=== PATIENT | female | born 1965 | race Caucasian/White ===

== ENCOUNTER → 2019-05-05 09:41 | Outpatient (BNVA) | payer MEDICAID, SELFPAY | PROVIDERS: Family Provider Registered Nurse; PCP Registered Nurse; Visit Provider Registered Nurse | DX: E11.59 Type 2 diabetes mellitus with other circulatory complications (principal); Z79.4 Long term (current) use of insulin; E03.9 Hypothyroidism, unspecified | CPT/HCPCS: 83036; 84443 ==

== ENCOUNTER → 2019-06-17 14:00 | Outpatient (BNVA) | payer MEDICAID, SELFPAY | PROVIDERS: Family Provider Registered Nurse; PCP Registered Nurse; Visit Provider Obstetrics & Gynecology | DX: Z12.4 Encounter for screening for malignant neoplasm of cervix (principal); B96.89 Other specified bacterial agents as the cause of diseases classified elsewhere; N76.0 Acute vaginitis | CPT/HCPCS: 87210 ==

== ENCOUNTER 2019-06-20 23:24 | Emergency (ER) | payer MEDICAID, SELFPAY ==
[2019-06-20 23:30] VITALS: BMI 40.0
[2019-06-20 23:32] VITALS: BP 111/63; PULSE 112; RESP 18; TEMP 37.4; O2SAT 96
--- NOTE | 2019-06-20 23:33 | ED_ITS ---
HPI - Epistaxis General: Chief complaint: General Medical Stated complaint: nosebleed x 3 hours Time Seen by Provider: 06/20/19 23:32 Source: patient Mode of arrival: ambulatory Limitations: no limitations History of Present Illness: HPI Narrative: Patient is a 54-year-old female who presents to ED today with complaints of bleeding from her left nare that began 3 hours ago. Bleeding has stopped upon arrival. Patient states this is her third nosebleed in the last few months. She states she takes aspirin and Plavix daily. Denies any other symptoms at this time MD complaint: epistaxis Location: left nostril Onset (ago): hour(s) Duration: now resolved Context: history of previous and aspirin use Associated symptoms: Reports no associated symptoms; Deny fever(s), headache(s) or sinus pain Review of Systems Const: Denies: fever, chills or body aches ENMT: Reports: nose bleeds; Denies: throat pain, enlarged tonsils, painful swallowing, oral sores/lesions, nasal discharge, nasal congestion, nasal obstruction or facial/sinus pain Card: Denies: chest pain Resp: Denies: shortness of breath GI: Reports: nausea (reports recently started flagyl for BV) Skin/Breast: Denies: rash Neuro: Denies: headache, numbness in extremities, weakness in extremities, changes in sensation, lack of coordination, dizziness or vertigo [facility] ED PFSH: Medical History (Updated 06/21/19 @ 00:07 by WILMA Hernandez) Coronary artery disease Diabetes Hyperlipidemia Hypothyroid Social History Smoking and tobacco status: never smoked Quit status (tobacco): has quit using tobacco Year quit tobacco: age 14 Alcohol intake: never History of recent travel: No Physical Exam Const: COMMON NORMALS: no apparent distress, average body habitus, oriented x3, no limitations, healthy appearing, alert and well nourished HENMT: COMMON NORMALS: normocephalic, head/scalp atraumatic, external nose normal, moist oral mucous membranes and oropharynx normal HEAD & SCALP: normocephalic and atraumatic NOSE: external nose normal THROAT: posterior oropharynx normal, tonsils normal and uvula midline OTHER: pt has polyp/growth inside L nare; this seems to be where bleeding is coming from; bleeding had subsided upon arrival to ED but with examination of nare/growth bleeding did begin again; it was slowed with Afrin; I think any use of cauterization will increase bleeding at this time and I don't feel pt would tolerate packing in her nare with the polyp present; bleeding controlled with na morales clamp Neuro: COMMON NORMALS: oriented x3 SENSORIUM/ORIENTATION: Yes alert Course Vital Signs: Vital signs: Vital Signs Temperature 99.3 F 06/20/19 23:32 Pulse Rate 112 H 06/21/19 00:14 Respiratory Rate 18 06/21/19 00:14 Blood Pressure 117/58 06/21/19 00:14 Pulse Oximetry 96 06/21/19 00:14 MDM - Epistaxis MDM Narrative: Medical decision making narrative: will have CM set her up to see Dr. Mata hopefully tomorrow or Thursday; return to ED precautions given regarding worsening or uncontrollable bleeding Discharge Plan Discharge Patient Disposition: Home, Self-Care Clinical Impression: Acute anterior epistaxis, Left nasal polyps Condition: Stable Prescriptions: No Action clopidogrel [Plavix] 75 mg tablet 75 mg PO DAILY RF: 0 metronidazole 500 mg tablet 500 mg PO BID Qty: 10 RF: 0 aspirin 325 mg tablet 325 mg PO DAILY RF: 0 Levemir FlexTouch U-100 Insuln 100 unit/mL (3 mL) insulin pen 15 unit SUBCUT DAILY RF: 0 hydroxyzine HCl 25 mg tablet 25 mg PO BID PRNRF: 0 Januvia 100 mg tablet 100 mg PO ONCE RF: 0 levothyroxine 112 mcg capsule 112 mcg PO ONCE RF: 0 lisinopril 2.5 mg tablet 2.5 mg PO ONCE RF: 0 metoprolol succinate 25 mg tablet extended release 24 hr 25 mg PO BID RF: 0 pantoprazole 40 mg tablet,delayed release (DR/EC) 40 mg PO ONCE RF: 0 simvastatin 40 mg tablet 40 mg PO ONCE RF: 0 (DME) pen needle, diabetic [Easy Comfort Pen [place]] 31 gauge x 1/4 needle See Rx Instructions .ROUTE .MEDSUPPLY Qty: 90 RF: 1 celecoxib [Celebrex] 100 mg capsule 100 mg PO DAILY Qty: 30 RF: 2 montelukast [Singulair] 10 mg tablet 10 mg PO ONCE Qty: 30 RF: 3 citalopram 10 mg tablet 10 mg PO ONCE Qty: 30 RF: 2 doxepin 75 mg capsule 75 mg PO DAILY Qty: 60 RF: 0 metformin 1,000 mg tablet extended release 24hr 1,000 mg PO BID Qty: 60 RF: 0 Victoza 2-Silas 0.6 mg/0.1 mL (18 mg/3 mL) pen injector 1.8 mg SUBCUT Q24H Qty: 6 RF: 0 Levemir FlexTouch U-100 Insuln 100 unit/mL (3 mL) insulin pen 50 unit SUBCUT ONCE Qty: 15 RF: 0 Discharge Orders: Discharge Order (Routine); Ordered 06/20/19 Ordered By: Samantha Hirsch Referrals: Artur Mata MD [Physician] - Adonis Mcgee FNP [Primary Care Provider] - Activity Restrictions/Additional Instructions: Case management should contact you tomorrow for ENT follow up. If nose bleed begins hold firm pressure for 15-20 mins using nasal clamp. May also use the Afrin nose spray. Return to ED if you cannot get bleeding controlled/stopped. Discharge Date/Time: 06/21/19 00:15 Coding Level of Care Code ED Polishing Wheel Repairer for Chg Fwd Exam Expanded Problem Focused
--- NOTE | 2019-06-20 23:38 | PC.NURSE ---
LACERATION TRAY USED FOR INSTRUMENTS BY Capri DILLON
[2019-06-20] MEDS: oxymetazoline 0.05% Nasal Spray 15 mL 2 SPRAY NOSTRIL-L (23:58)
[2019-06-21 00:14] VITALS: BP 117/58; PULSE 112; RESP 18; O2SAT 96
--- NOTE | 2019-06-23 13:33 | DCPLANNER ---
late entry - correctional case records supervisor had message to schedule a follow up appointment for patient with ENT. performance manager called patient to confirm that patient would like for correctional case records supervisor to schedule a follow up appointment. performance manager was unable to speak with patient at this time, a voice mail was left for patient to return rn field case manager phone call.
== END 2019-06-21 00:15 | disposition home or self-care (01) ==
PROVIDERS: Emergency Provider Physician Assistant; Family Provider Registered Nurse; PCP Registered Nurse
DX: J33.9 Nasal polyp, unspecified (principal); R04.0 Epistaxis; E11.9 Type 2 diabetes mellitus without complications; I25.10 Atherosclerotic heart disease of native coronary artery without angina pectoris; E78.5 Hyperlipidemia, unspecified; E03.9 Hypothyroidism, unspecified; Z79.82 Long term (current) use of aspirin; Z79.02 Long term (current) use of antithrombotics/antiplatelets; Z87.891 Personal history of nicotine dependence; Z79.84 Long term (current) use of oral hypoglycemic drugs
CPT/HCPCS: 99281; 99283

== ENCOUNTER → 2019-06-30 14:28 | Outpatient (BNVA) | payer MEDICAID, SELFPAY | PROVIDERS: Family Provider Registered Nurse; PCP Registered Nurse; Visit Provider Otolaryngology | DX: R04.0 Epistaxis (principal); J34.2 Deviated nasal septum | CPT/HCPCS: 99203; 99214 ==

== ENCOUNTER → 2019-08-26 08:54 | Outpatient (BNVA) | payer MEDICAID, SELFPAY | PROVIDERS: Family Provider Registered Nurse; PCP Registered Nurse; Visit Provider Registered Nurse | DX: E11.65 Type 2 diabetes mellitus with hyperglycemia (principal); E03.9 Hypothyroidism, unspecified; Z79.4 Long term (current) use of insulin | CPT/HCPCS: 80053; 83036; 84443 ==

== ENCOUNTER 2019-09-12 08:33 | Outpatient (CLI) | payer MEDICAID, SELFPAY ==
--- NOTE | 2019-09-12 09:00 | CT_ITS ---
WS: [id number] CT HEAD TECHNIQUE: Noncontrast CT of the head obtained from the skullbase to the vertex. CLINICAL INFORMATION: dizziness COMPARISON: None. DLP: 992.[address] scans at [facility] use at least one of these dose optimization techniques: automat ed exposure control; mA and/or kV adjustment per patient size (includes targeted exams where dose is matched to clinical indication); or iterative reconstruction. FINDINGS: No evidence of intracranial hemorrhage or mass effect. Ventricular system and basal cisterns are sears nt. Minimal small vessel changes with mild parenchymal volume loss. No extra-axial fluid collections. No evidence of mass or mass effect. Normal ceballos-white differentiation. Paranasal sinuses and mastoid air cells are well aerated. .Normal visualized soft tissues. CT/CT head wo con* [id number] IMPRESSION: 1. No evidence of intracranial hemorrhage or mass effect. 2. Minimal small vessel changes. Mild parenchymal volume loss. 3. No acute intracranial findings.
== END 2019-09-12 08:34 | disposition home or self-care (01) ==
LOC: RADWPI 08:36
PROVIDERS: Family Provider Registered Nurse; PCP Registered Nurse; Visit Provider Registered Nurse
DX: R42 Dizziness and giddiness (principal)
CPT/HCPCS: 70450

== ENCOUNTER 2019-10-05 06:31 | Inpatient (IN) | payer MEDICAID, SELFPAY ==
[2019-10-05] VITALS (26 sets, daily range): BP systolic 99–125; BP diastolic 50–74; PULSE 84–109; RESP 16–22; TEMP 36.6–37.2; O2SAT 95–100; BMI 39.9
--- NOTE | 2019-10-05 07:07 | W.ED.FALL ---
HPI - Fall General: Chief Complaint: Fall Stated Complaint: FALL Time Seen by Provider: 10/05/19 06:42 History of Present Illness: HPI Narrative: 54-year-old male had a fall at home. She got up from bed went to the bathroom she fell and, landed on her buttocks in a seated position she not strike her head did not lose consciousness. She got lightheaded or dizzy prior to it when she stood up and started walking. She has no other known injuries. Looking back through her chart she has had a lot of epistaxis the last couple of months and is on clopidogrel because of her stenting and previous coronary artery disease. She denies any blood from GI losses. MD complaint: fall Onset (ago): minute(s) Fall from: standing Fall witnessed: yes, by family Place fall occurred: home Loss of consciousness: None Symptoms prior to fall: lightheadedness and dizziness Location of injury: back (lumbar) Severity: moderate Quality: aching Associated symptoms-after fall: Denies abdominal pain or chest pain Review of Systems Const: Denies: fever(s), chills, body aches, change in appetite, fatigue or malaise ENMT: Denies: throat pain, ear or mastoid pain, nasal discharge or nasal congestion Card: Denies: chest pain, edema, dyspnea on exertion or orthopnea Resp: Denies: dyspnea, productive cough or non-productive cough GI: Denies: abdominal pain, nausea, vomiting, hematemesis, coffee ground emesis, diarrhea, constipation, bloating, hematochezia or melena : Denies: flank pain, difficulty voiding, dysuria, urinary frequency or urinary urgency Skin/Breast: Denies: rash or pruritus PFSH ED PFSH: Medical History (Updated 10/05/19 @ 08:26 by Tim Aviles DO) Anxiety and depression Arthritis Coronary artery disease Had stent 03/2019 Deviated septum Diabetes Hyperlipidemia Hypothyroid Surgical History History of total left knee replacement History of total right knee replacement (~11/2017) History of tubal ligation Hx of heart artery stent (~03/2019) Family History Mother Diabetes Brother Diabetes Heart disease Hypercholesteremia Father Heart disease Sister Uterine cancer Social History (Updated 10/05/19 @ 10:24 by Carina Gillis DO) Smoking and tobacco status: never smoked Quit status (tobacco): has quit using tobacco Year quit tobacco: age 14 Alcohol intake: never Substance/Drug Use: never Marital status: History of recent travel: No Physical Exam Const: COMMON NORMALS: no acute distress GENERAL APPEARANCE: cooperative and comfortable ORIENTATION/CONSCIOUSNESS: Yes awake, Yes oriented to person, Yes oriented to place and Yes oriented to time HENMT: COMMON NORMALS: normocephalic, atraumatic, hearing grossly normal bilaterally, external ears normal, EAC's normal, TM's normal bilaterally, Normal nasal mucous membranes and turbinates present, moist oral mucous membranes and oropharynx normal HEAD & SCALP: normocephalic and atraumatic NOSE: Normal nasal mucous membranes and turbinates present EXTERNAL EAR: Yes external ears normal EXTERNAL AUDITORY CANAL: EAC's normal TYMPANIC MEMBRANE: TM's normal bilaterally Eye: COMMON NORMALS: Equal, round and reactive pupils present, EOMs intact bilaterally, conjunctivae normal and no scleral icterus CONJUNCTIVA: Yes conjunctivae normal PUPIL: Yes Equal, round and reactive pupils present Neck/C-Spine: COMMON NORMALS: full ROM, no lymphadenopathy, supple and no JVD Lymph: LYMPHATIC: no lymphadenopathy noted and no lymphedema noted Resp: COMMON NORMALS: normal respiratory effort, No retractions, No use of accessory muscles and clear to auscultation bilaterally AUSCULTATION: clear to auscultation bilaterally Cardio: COMMON NORMALS: no JVD, regular rate, regular rhythm and No murmurs present (Cardio) RATE: regular rate RHYTHM: regular rhythm GI: COMMON NORMALS: Soft to palpation and No hepatosplenomegaly present AUSCULTATION: Yes normoactive bowel sounds PALPATION: Yes Soft to palpation, No Tenderness to palpation present (GI), No Guarding due to palpation present (GI) and Yes No hepatosplenomegaly present Extremity: COMMON NORMALS: normal to inspection, capillary refill normal, no clubbing, cyanosis or edema, no calf tenderness and no pedal edema Neuro: SENSORIUM/ORIENTATION: Yes oriented to person, Yes oriented to place and Yes oriented to time Skin: COMMON NORMALS: no rashes or lesions noted GENERAL SKIN EXAM: no rashes or lesions noted Course Vital Signs: Vital signs: Vital Signs Temperature 98.3 F 10/05/19 15:53 Pulse Rate 84 10/05/19 15:53 Respiratory Rate 22 H 10/05/19 15:53 Blood Pressure 110/72 10/05/19 15:53 Pulse Oximetry 95 10/05/19 15:53 MDM - Fall MDM Narrative: Medical decision making narrative: Patient has syncopal episode largely in part due to her severe anemia probably exacerbated by her underlying diabetes and antihypertensives. Discussed with Dr. Gillis will go ahead and admit to units packed red blood cells been ordered to transfuse also given insulin for hyperglycemia. She will need further work-up for her anemia losses. She has had quite a bit of bloody noses lately her last hemoglobin was in February 2019 could not find that she had when checked in between this could be part of it she is also on Plavix and aspirin which exacerbated it further. Lab Data: Labs: Lab Results 10/05/19 10/05/19 10/05/19 Range/Units 07:10 07:10 07:10 WBC 8.4 (4.0-10.0) 10^3/ uL RBC 3.82 L (4.1-5.3) 10^6/u L Hgb 5.3 L* (11.5-15.3) g/dL Hct 22.5 L (37.0-47.0) % MCV 58.9 L (81-99) fL MCH 13.9 L (28.0-34.0) pg MCHC 23.6 L (30.0-36.0) g/dL RDW 22.2 H (12.1-15.1) % Plt Count 425 H (130-400) 10^3/c mm MPV 9.0 (7.4-10.4) fL Neut % (Auto) 75.4 % Lymph % (Auto) 14.1 % [place] % (Auto) 6.3 % Eos % (Auto) 2.1 % Baso % (Auto) 0.8 % Neut # (Auto) 6.4 (1.8-7.7) 10^3/u L Lymph # (Auto) 1.2 (0.8-4.8) 10^3/u L [place] # (Auto) 0.5 (0.2-0.9) 10^3/u L Eos # (Auto) 0.2 (0.0-0.8) 10^3/u L Baso # (Auto) 0.1 (0.0-0.1) 10^3/u L Nucleated RBC % (a uto) 0.7 % Nucleated RBCs # 0.1 /100WBC Haptoglobin 122.0 (30-200) mg/L PT (10.5-13.3) SECO NDS INR (0.8-1.2) Sodium 129 L (136-145) mmol/L Potassium 4.5 (3.5-5.1) mmol/L Chloride 93 L (98-107) mmol/L Carbon Dioxide 21 L (22-29) mmol/L Anion Gap 19.5 H (5-19) BUN 8 (6-20) mg/dL Creatinine 0.7 (0.5-0.9) mg/dL GFR Calculation 86.6 L (90-130) mL/min Glucose 554 H* (65-115) mg/dL Estimat Average Gl ucose Hemoglobin A1c (4.0-6.0) % Calculated Osmolal ity 289 (285-295) mOsm/k g Calcium 9.2 (8.5-10.5) mg/dL Iron 17 L (37-145) ug/dL TIBC 445 mcg/dl % Saturation 3.8 L (20-50) % Unsat Iron Binding 428 H (112-347) ug/dL Ferritin 7 L (15-150) ng/mL Total Bilirubin 0.5 (0.15-1.2) mg/dL AST 41 H (0-32) U/L ALT 24 (0-33) U/L Alkaline Phosphata se 109 H (35-105) IU/L Total Protein 7.7 (6.6-8.7) g/dL Albumin 4.1 (3.5-5.2) g/dL Globulin 3.6 (1.3-4.6) g/dL Vitamin B12 523 (232-1245) pg/mL Folate (4.8-37.3) ng/mL TSH (0.27-4.20) uIU/ mL Blood Type Rho(D) Type Antibody Screen Crossmatch 10/05/19 10/05/19 10/05/19 Range/Units 07:10 07:10 07:10 WBC (4.0-10.0) 10^3/ uL RBC (4.1-5.3) 10^6/u L Hgb (11.5-15.3) g/dL Hct (37.0-47.0) % MCV (81-99) fL MCH (28.0-34.0) pg MCHC (30.0-36.0) g/dL RDW (12.1-15.1) % Plt Count (130-400) 10^3/c mm MPV (7.4-10.4) fL Neut % (Auto) % Lymph % (Auto) % [place] % (Auto) % Eos % (Auto) % Baso % (Auto) % Neut # (Auto) (1.8-7.7) 10^3/u L Lymph # (Auto) (0.8-4.8) 10^3/u L [place] # (Auto) (0.2-0.9) 10^3/u L Eos # (Auto) (0.0-0.8) 10^3/u L Baso # (Auto) (0.0-0.1) 10^3/u L Nucleated RBC % (a uto) % Nucleated RBCs # /100WBC Haptoglobin (30-200) mg/L PT 13.80 H (10.5-13.3) SECO NDS INR 1.03 (0.8-1.2) Sodium (136-145) mmol/L Potassium (3.5-5.1) mmol/L Chloride (98-107) mmol/L Carbon Dioxide (22-29) mmol/L Anion Gap (5-19) BUN (6-20) mg/dL Creatinine (0.5-0.9) mg/dL GFR Calculation (90-130) mL/min Glucose (65-115) mg/dL Estimat Average Gl ucose 212 Hemoglobin A1c 9.0 H (4.0-6.0) % Calculated Osmolal ity (285-295) mOsm/k g Calcium (8.5-10.5) mg/dL Iron (37-145) ug/dL TIBC mcg/dl % Saturation (20-50) % Unsat Iron Binding (112-347) ug/dL Ferritin (15-150) ng/mL Total Bilirubin (0.15-1.2) mg/dL AST (0-32) U/L ALT (0-33) U/L Alkaline Phosphata se (35-105) IU/L Total Protein (6.6-8.7) g/dL Albumin (3.5-5.2) g/dL Globulin (1.3-4.6) g/dL Vitamin B12 (232-1245) pg/mL Folate 15.2 (4.8-37.3) ng/mL TSH (0.27-4.20) uIU/ mL Blood Type Rho(D) Type Antibody Screen Crossmatch 10/05/19 10/05/19 Range/Units 07:10 07:49 WBC (4.0-10.0) 10^3/ uL RBC (4.1-5.3) 10^6/u L Hgb (11.5-15.3) g/dL Hct (37.0-47.0) % MCV (81-99) fL MCH (28.0-34.0) pg MCHC (30.0-36.0) g/dL RDW (12.1-15.1) % Plt Count (130-400) 10^3/c mm MPV (7.4-10.4) fL Neut % (Auto) % Lymph % (Auto) % [place] % (Auto) % Eos % (Auto) % Baso % (Auto) % Neut # (Auto) (1.8-7.7) 10^3/u L Lymph # (Auto) (0.8-4.8) 10^3/u L [place] # (Auto) (0.2-0.9) 10^3/u L Eos # (Auto) (0.0-0.8) 10^3/u L Baso # (Auto) (0.0-0.1) 10^3/u L Nucleated RBC % (a uto) % Nucleated RBCs # /100WBC Haptoglobin (30-200) mg/L PT (10.5-13.3) SECO NDS INR (0.8-1.2) Sodium (136-145) mmol/L Potassium (3.5-5.1) mmol/L Chloride (98-107) mmol/L Carbon Dioxide (22-29) mmol/L Anion Gap (5-19) BUN (6-20) mg/dL Creatinine (0.5-0.9) mg/dL GFR Calculation (90-130) mL/min Glucose (65-115) mg/dL Estimat Average Gl ucose Hemoglobin A1c (4.0-6.0) % Calculated Osmolal ity (285-295) mOsm/k g Calcium (8.5-10.5) mg/dL Iron (37-145) ug/dL TIBC mcg/dl % Saturation (20-50) % Unsat Iron Binding (112-347) ug/dL Ferritin (15-150) ng/mL Total Bilirubin (0.15-1.2) mg/dL AST (0-32) U/L ALT (0-33) U/L Alkaline Phosphata se (35-105) IU/L Total Protein (6.6-8.7) g/dL Albumin (3.5-5.2) g/dL Globulin (1.3-4.6) g/dL Vitamin B12 (232-1245) pg/mL Folate (4.8-37.3) ng/mL TSH 10.28 H (0.27-4.20) uIU/ mL Blood Type A Positive Rho(D) Type Positive Antibody Screen Negative Crossmatch See Detail Discharge Plan Discharge Patient Disposition: Admitted As Inpatient Admit Provider: Carina Gillis Clinical Impression: Syncope, Diabetes, Hypothyroid, Coronary artery disease, Hyperlipidemia, Anemia Condition: Stable Referrals: Adonis Mcgee FNP [Primary Care Provider] - Discharge Date/Time: 10/05/19 09:54 Coding Level of Care Code ED Cereal Popper for Chg Fwd Exam Comprehensive
[2019-10-05 07:16] LABS: Basophils # 0.1 10^3/uL (0.0-0.1); Basophils % 0.8 %; Eosinophils # 0.2 10^3/uL (0.0-0.8); Eosinophils % 2.1 %; Hematocrit 22.5 % (37.0-47.0); Lymphocytes # 1.2 10^3/uL (0.8-4.8); Lymphocytes % 14.1 %; Mean Corpuscular HGB Conc 23.6 g/dL (30.0-36.0); Mean Corpuscular Hemoglobin 13.9 pg (28.0-34.0); Mean Corpuscular Volume 58.9 fL (81-99); Monocytes # 0.5 10^3/uL (0.2-0.9); Monocytes % 6.3 %; Neutrophils # 6.4 10^3/uL (1.8-7.7); Neutrophils % 75.4 %; Nucleated Red Blood Cells # 0.1 /100WBC; Nucleated Red Blood Cells % 0.7 %; Platelet Count 425 10^3/cmm (130-400); Red Blood Count 3.82 10^6/uL (4.1-5.3); Red Cell Distribution Width 22.2 % (12.1-15.1); White Blood Count 8.4 10^3/uL (4.0-10.0)
--- NOTE | 2019-10-05 07:17 | PC.NURSE ---
Patient ambulated in the room.
[2019-10-05] MEDS: sodium chloride 0.9% 500 ML 999 ML IV (07:24)
[2019-10-05 07:33] LABS: Hemoglobin 5.3 g/dL (11.5-15.3)
[2019-10-05 07:37] LABS: Alanine Aminotransferase 24 U/L (0-33); Albumin Level 4.1 g/dL (3.5-5.2); Alkaline Phosphatase 109 IU/L (35-105); Anion Gap 19.5 (5-19); Aspartate Amino Transferase 41 U/L (0-32); Blood Urea Nitrogen 8 mg/dL (6-20); Calcium 9.2 mg/dL (8.5-10.5); Carbon Dioxide 21 mmol/L (22-29); Chloride 93 mmol/L (98-107); Globulin 3.6 g/dL (1.3-4.6); Glomerular Filtration Rate 86.6 mL/min (90-130); Osmolality Calculated 289 mOsm/kg (285-295); Potassium 4.5 mmol/L (3.5-5.1); Sodium 129 mmol/L (136-145); Total Bilirubin 0.5 mg/dL (0.15-1.2); Total Protein 7.7 g/dL (6.6-8.7)
[2019-10-05 07:39] LABS: Glucose 554 mg/dL (65-115)
--- NOTE | 2019-10-05 07:40 | XR_ITS ---
WS: [id number] LUMBAR SPINE: 3 VIEWS TECHNIQUE: AP, lateral and L5-S1 spot. HISTORY: FALL COMPARISON: None available. Very mild LEFT convex curvature of the lumbar spine. Vertebral body height is normal. Endplate osteop hytes at all levels. No fractures identified. Facet joint arthritis is moderate to severe at L5-S1. Mild bilateral SI joint sclerosis. Mild bilateral hip joint arthritis. Scattered plaque within the aorta. XR/XR lumbar spine 2-3V* [id number] IMPRESSION: 1. Mild LEFT convex curvature lumbar spine with no fracture. 2. Mild bilateral SI joint and hip joint arthritis.
[2019-10-05] MEDS: insulin regular-human 100 units/1 mL 10 UNIT IVP (08:16)
[2019-10-05 08:21] LABS: Ferritin 7 ng/mL (15-150); Iron 17 ug/dL (37-145); Percent Saturation 3.8 % (20-50); Total Iron Binding Capacity 445 mcg/dl; Unsaturated Iron Binding 428 ug/dL (112-347)
[2019-10-05] MEDS: HYDROcodone-acetaminophen 10-325 mg Tablet 1 TAB PO (08:26)
[2019-10-05 08:35] LABS: Vitamin B12 523 pg/mL (232-1245)
[2019-10-05 08:39] LABS: Folate Level 15.2 ng/mL (4.8-37.3)
--- NOTE | 2019-10-05 09:07 | PC.NURSE ---
Blood verified with ANTHONY Marinelli at this time.
[2019-10-05 09:44] LABS: Glucose Point of Care 381 mg/dL (70-110)
--- NOTE | 2019-10-05 10:18 | PM.HP ---
Providers/Chief Complaint Admitting Physician: Carina Gillis DO Primary Care Provider: GULSHAN Pitts Chief Complaint: FALL History of Present Illness Tonie Fish is a 54 year old female that presented to the emergency department today after a lightheaded and syncopal episode. Patient stated that she has been feeling lightheaded intermittently for several months. She stated that she has had difficulty with balance. She reports having a fall this morning after standing up quickly. She reports that she fell onto her bottom and her hip, has some discomfort from bruising but able to bear weight. Patient denies any continued headache or vision changes. She reports that she has been having intermittent nosebleeds for the past several months. She has been followed by ENT. She stated that she has been having approximately 4-5 episodes of epistaxis per week. Sometimes it will be very light and sometimes it will last for a longer period of time. She stated that her longest nosebleed lasted approximately 5 hours, she was evaluated in the emergency department when this occurred. Patient has been following with her primary care provider for work-up of her lightheadedness, has not had any recent labs performed that are viewable in our system. She reports that she has not had any melanotic stools, no bright red blood per rectum. She reports that she has had screening fecal occult blood, however has never had a colonoscopy or EGD. She denies any family history of colon cancer. Patient reports that her last menstrual period was at the age of 50, has no irregular bleeding, reports that her last Pap smear was normal. Patient denies any other source of bleeding. She reports that she takes in a regular diet, she denies any history of gastric surgery, denies any vegetarian or vegan diet. Patient denies any exposure to anyone under investigation or positive for CO VID-19. Patient was seen and evaluated in the emergency department and noted to have anemia with a hemoglobin of 5.3 she was typed and screened for 2 units of packed red blood cells and admitted for further evaluation and treatment. Review of Systems Const: Denies: fever(s) or chills Eyes: Denies: change in vision ENMT: Denies: nasal congestion Card: Denies: chest pain, palpitations or edema Resp: Denies: dyspnea, productive cough or hemoptysis GI: Denies: abdominal pain, nausea, vomiting, diarrhea, constipation, hematochezia or melena : Denies: dysuria, hematuria, vaginal bleeding, irregular period or pelvic pain Musc: Denies: extremity pain or muscle cramps Skin/Breast: Denies: rash or new lesions Neuro: Reports: dizziness and vertigo; Denies: headache(s) Psych: Denies: anxiety or depression Endo: Denies: polyuria or hot flashes Caio/Lymph: Denies: easy bruising, easy bleeding, petechiae or purpura Medications/Allergies Home Medications Medication Instructions Recorded Confirmed Last Taken Type hydroxyzine HCl 25 mg tablet 25 mg PO BID PRN 05/05/19 10/05/19 Unknown History metoprolol succinate 25 mg 12.5 mg PO BID tab 05/05/19 10/05/19 10/04/19 History tablet,extended release 24 hr aspirin 325 mg tablet 325 mg PO DAILY 06/14/19 10/05/19 10/04/19 History insulin detemir U-100 100 unit/mL 53 unit SUBCUT DAILY #15 ml 07/05/19 10/05/19 10/04/19 Rx (3 mL) subcutaneous pen liraglutide 0.6 mg/0.1 mL (18 mg/3 1.8 mg SUBCUT Q24H #6 ml 07/05/19 10/05/19 10/04/19 Rx mL) subcutaneous pen injector nystatin 100,000 unit/gram topical 1 applic TOPICAL TID #60 gm 07/05/19 10/05/19 Unknown Rx powder clopidogrel 75 mg tablet 75 mg PO DAILY #90 tab 08/26/19 10/05/19 10/04/19 Rx doxepin 75 mg capsule See Rx Instructions .ROUTE 09/26/19 10/05/19 10/04/19 Rx .COMPLEX #60 cap citalopram 10 mg PO DAILY 10/05/19 10/05/19 10/04/19 History levothyroxine 112 mcg PO DAILY 10/05/19 10/05/19 10/04/19 History lisinopril 2.5 mg PO DAILY 10/05/19 10/05/19 10/04/19 History metformin 1,000 mg PO BID 10/05/19 10/05/19 10/04/19 History montelukast 10 mg PO DAILY 10/05/19 10/05/19 10/04/19 History pantoprazole 40 mg PO DAILY 10/05/19 10/05/19 10/04/19 History simvastatin 40 mg PO DAILY 10/05/19 10/05/19 10/04/19 History sitagliptin [Januvia] 100 mg PO DAILY 10/05/19 10/05/19 10/04/19 History Allergies Allergy/AdvReac Type Severity Reaction Status Date / Time No Known Allergies Allergy Verified 09/07/19 09:15 PFSH Acute PFSH: Medical History (Updated 10/05/19 @ 08:26 by Tim Aviles DO) Anxiety and depression Arthritis Coronary artery disease Had stent 03/2019 Deviated septum Diabetes Hyperlipidemia Hypothyroid Surgical History History of total left knee replacement History of total right knee replacement (~11/2017) History of tubal ligation Hx of heart artery stent (~03/2019) Family History Mother Diabetes Brother Diabetes Heart disease Hypercholesteremia Father Heart disease Sister Uterine cancer Social History (Updated 10/05/19 @ 10:24 by Carina Gillis DO) Smoking and tobacco status: never smoked Quit status (tobacco): has quit using tobacco Year quit tobacco: age 14 Alcohol intake: never Substance/Drug Use: never Marital status: History of recent travel: No Vitals/I&O/Wt Last Vital Signs Temp 98.7 F 10/05/19 10:00 Pulse 91 10/05/19 10:00 Resp 16 10/05/19 10:00 BP 116/63 10/05/19 10:00 Pulse Ox 97 10/05/19 10:00 10/04/19 10/05/19 10/05/19 22:59 06:59 14:59 Intake Total 500 / 500 Balance 500 / 500 Weight last 48 hrs Weight 98.883 kg Physical Exam Const: COMMON NORMALS: patient oriented x3 and alert GENERAL APPEARANCE: cooperative ORIENTATION/CONSCIOUSNESS: Yes awake, Yes oriented to person, Yes oriented to place and Yes oriented to time OTHER: General pallor HENMT: COMMON NORMALS: normocephalic and atraumatic HEAD & SCALP: normocephalic and atraumatic Eye: COMMON NORMALS: Equal, round and reactive pupils present PUPIL: Yes Equal, round and reactive pupils present Neck/C-Spine: COMMON NORMALS: supple GENERAL: Yes normal visual inspection Resp: COMMON NORMALS: normal respiratory effort and clear to auscultation bilaterally EFFORT & INSPECTION: Yes able to speak in complete sentences AUSCULTATION: clear to auscultation bilaterally, no rhonchi and no wheezes Cardio: COMMON NORMALS: regular rate, regular rhythm and No murmurs present (Cardio) RATE: regular rate RHYTHM: regular rhythm GI: COMMON NORMALS: Soft to palpation and non-tender INSPECTION: No abdominal distension AUSCULTATION: Yes normoactive bowel sounds PALPATION: Yes Soft to palpation : COMMON NORMALS: Yes no CVA tenderness BLADDER/KIDNEY EXAM: Yes no CVA tenderness Back/Pelvis: COMMON NORMALS: no CVA tenderness Extremity: COMMON NORMALS: no clubbing, cyanosis or edema and no calf tenderness Neuro: COMMON NORMALS: patient oriented x3, CN's II-XII intact bilaterally, moves all extremities and no focal motor deficits SENSORIUM/ORIENTATION: Yes alert, Yes oriented to person, Yes oriented to place and Yes oriented to time SPEECH: speech normal Psych: COMMON NORMALS: mental status grossly normal and cooperative Skin: COMMON NORMALS: no rashes or lesions noted GENERAL SKIN EXAM: no rashes or lesions noted Data : 10/05/19 07:10 10/05/19 07:10 A&P Assessment and plan (1) Syncope: Likely secondary to anemia Significant drop in hemoglobin to 5.3. Prior hemoglobin on 1120 oh 19 at 12.5. Continue further work-up for microcytic anemia Fall precautions Status: Acute (2) Anemia: Microcytic anemia which appears to be new from February 2019 Believed to be multifactorial, patient reports recurrent nosebleeds with approximately 4 to 5/week, no active bleeding at this time. Patient is on aspirin and Plavix due to stent placement in March 2019. Will discuss with her oxygraph operator about the potential of moving to single antiplatelet regimen. Patient also has iron deficiency, will start on iron replacement. We will continue to work-up microcytic anemia with peripheral smear and other hematologic testing, likely secondary to iron deficiency and blood loss from recurrent nose bleeds Status: Acute (3) Hyperlipidemia: Continue home statin Status: Acute (4) Coronary artery disease: With stent placement in March 2019. Patient is followed by Dr. Celis. Continue on aspirin but will decrease dose to 81 mg, Plavix, simvastatin, metoprolol, lisinopril Will discuss with oxygraph operator if patient can be reduced to Plavix due to anemia and recurrent nosebleeds Status: Acute (5) Hypothyroid: We will check TSH, at this time we will continue home levothyroxine of 112 mcg daily Status: Chronic (6) Diabetes: Poorly controlled diabetes mellitus, insulin-dependent. Patient is hyperglycemic at time of presentation in the ED, did not have medications this morning. Will restart Levemir at 30 units twice a day and continue with sliding scale insulin as needed. Patient is also on Victoza and metformin at home Checking A1c Status: Chronic Additional A&P Information Epistaxis: Patient has recurrent intermittent epistaxis, previously followed by ENT and has a follow-up appointment in the coming weeks. We will continue with nasal saline spray as needed to moisten mucous membranes, no active bleeding at this time. Patient would likely benefit from cauterization in the future Iron deficiency anemia: Would recommend outpatient EGD and colonoscopy, this was discussed with patient. She denies any melanotic stools, no concern for GI bleed at this time but would recommend further follow-up in the outpatient setting Pseudohyponatremia: Secondary to hyperglycemia DVT prophylaxis: SCDs, no pharmacologic prophylaxis due to concern for anemia Diet: Carbohydrate consistent CODE STATUS: Full code Attestations Medical Necessity Statement*: Patient requires inpatient admission due to significant anemia with a hemoglobin of 5.3 along with hyperglycemia greater than 500 in the setting of recent stent placement on dual antiplatelet therapy. Expected stay greater than 2 midnights Coding Level of Care Code Acute Certified Travel Counselor for Chg Fwd Exam Comprehensive Diagnoses Syncope R55 Anemia D64.9 Hyperlipidemia E78.5 Coronary artery disease I25.10 Hypothyroid E03.9 Diabetes E11.9
[2019-10-05 10:38] LABS: INR 1.03 (0.8-1.2)
[2019-10-05 10:46] LABS: Estmated Average Glucose 212
[2019-10-05 10:50] LABS: Thyroid Stimulating Hormone 10.28 uIU/mL (0.27-4.20)
[2019-10-05] MEDS: sitagliptin 100 mg Tablet PO (11:01)
[2019-10-05] MEDS: clopidogrel 75 mg Tablet PO (11:01)
[2019-10-05] MEDS: ferrous sulfate EC 325 mg Tablet PO ×2 (11:01→17:33)
[2019-10-05] MEDS: pantoprazole DR 40 mg Tablet PO (11:02)
[2019-10-05 11:17] LABS: LAB Peripheral Smear Sent for Review
[2019-10-05 11:37] LABS: Glucose Point of Care 329 mg/dL (70-110)
[2019-10-05] MEDS: sodium chloride 0.9% (100 ml) 100 ML 45 ML (12:49)
[2019-10-05] MEDS: atorvastatin 40 mg Tablet 20 MG PO (12:54)
[2019-10-05 16:35] LABS: Glucose Point of Care 244 mg/dL (70-110)
[2019-10-05] MEDS: ascorbic acid 500 mg Tablet PO (17:33)
[2019-10-05 18:05] LABS: Hematocrit 26.4 % (37.0-47.0)
[2019-10-05 18:16] LABS: Free T4 Free Thyroxine 0.74 ng/dL (0.82-1.77); T3 Free 2.1 PG/ML (2.0-4.4)
[2019-10-05] MEDS: doxepin 50 mg Capsule 150 MG PO (20:07)
[2019-10-05] MEDS: nystatin powder 15 gm Btl 1 APPLIC TOPICAL (20:08)
[2019-10-05 21:06] LABS: Glucose Point of Care 234 mg/dL (70-110)
--- NOTE | 2019-10-05 21:22 | PC.NURSE ---
during report i witnessed Patty CRUZ (dayshift) call Dr. Gillis and report the new HH value of 7.0. Dr Gillis then ordered to give 1 more unit of blood. I will carry out this order on my shift.
[2019-10-06 01:35] VITALS: BP 107/69; PULSE 98; RESP 16; TEMP 37; O2SAT 95
[2019-10-06 03:46] LABS: Basophils # 0.1 10^3/uL (0.0-0.1); Basophils % 1.1 %; Eosinophils # 0.3 10^3/uL (0.0-0.8); Hematocrit 29.7 % (37.0-47.0); Hemoglobin 8.2 g/dL (11.5-15.3); Lymphocytes # 1.7 10^3/uL (0.8-4.8); Lymphocytes % 18.4 %; Mean Corpuscular HGB Conc 27.6 g/dL (30.0-36.0); Mean Corpuscular Hemoglobin 17.9 pg (28.0-34.0); Mean Corpuscular Volume 64.8 fL (81-99); Mean Platelet Volume 9.2 fL (7.4-10.4); Monocytes # 0.6 10^3/uL (0.2-0.9); Neutrophils # 6.7 10^3/uL (1.8-7.7); Neutrophils % 70.5 %; Nucleated Red Blood Cells # 0.1 /100WBC; Platelet Count 423 10^3/cmm (130-400); Red Blood Count 4.58 10^6/uL (4.1-5.3); Red Cell Distribution Width 29.6 % (12.1-15.1); White Blood Count 9.4 10^3/uL (4.0-10.0)
--- NOTE | 2019-10-06 04:04 | PC.NURSE ---
3rd unit transfused without issue or reaction. Patient states she is feeling so much better . Will await HH in the AM, one unit still of hold in blood bank.
[2019-10-06 04:15] LABS: Alanine Aminotransferase 22 U/L (0-33); Albumin Level 4.2 g/dL (3.5-5.2); Alkaline Phosphatase 104 IU/L (35-105); Aspartate Amino Transferase 44 U/L (0-32); Blood Urea Nitrogen 10 mg/dL (6-20); Calcium 9.7 mg/dL (8.5-10.5); Carbon Dioxide 25 mmol/L (22-29); Chloride 98 mmol/L (98-107); Globulin 2.8 g/dL (1.3-4.6); Glomerular Filtration Rate 86.6 mL/min (90-130); Glucose 212 mg/dL (65-115); Osmolality Calculated 280 mOsm/kg (285-295); Sodium 134 mmol/L (136-145)
[2019-10-06 04:26] VITALS: BP 107/66; PULSE 99; RESP 18; TEMP 36.8; O2SAT 96
[2019-10-06 06:22] LABS: Glucose Point of Care 248 mg/dL (70-110)
[2019-10-06 08:00] VITALS: BP 130/82; PULSE 88; RESP 16; TEMP 36.8; O2SAT 92
[2019-10-06] MEDS: citalopram 20 mg Tablet 10 MG PO (08:20)
[2019-10-06] MEDS: atorvastatin 40 mg Tablet 20 MG PO (08:20)
[2019-10-06] MEDS: levothyroxine 112 mcg Tablet PO (08:21)
[2019-10-06] MEDS: metoprolol succinate ER (24 HR) 25 mg Tablet 12.5 MG PO (08:21)
[2019-10-06] MEDS: lisinopril 2.5 mg Tablet PO (08:22)
[2019-10-06] MEDS: pantoprazole DR 40 mg Tablet PO (08:22)
[2019-10-06] MEDS: sitagliptin 100 mg Tablet PO (08:22)
[2019-10-06] MEDS: aspirin 81 mg EC Tablet PO (08:22)
[2019-10-06] MEDS: ascorbic acid 500 mg Tablet PO (08:23)
[2019-10-06] MEDS: montelukast sodium 10 mg Tablet PO (08:23)
[2019-10-06] MEDS: ferrous sulfate EC 325 mg Tablet PO (08:23)
[2019-10-06] MEDS: clopidogrel 75 mg Tablet PO (08:23)
[2019-10-06] MEDS: HYDROcodone-acetaminophen 5-325 mg Tablet 1 TAB PO (08:27)
--- NOTE | 2019-10-06 08:53 | P.DS_ITS ---
Discharge Providers Date of Admission: 10/05/19 08:28 Date of Discharge: October 06, 2019 Attending Provider at Admission: Carina Gillis DO Attending Provider at Discharge: Carina Gillis DO Primary Care Provider: GULSHAN Pitts Diagnoses at Discharge Discharge Diagnosis (1) Syncope: Status: Acute (2) Anemia: Status: Acute (3) Hyperlipidemia: Status: Acute (4) Coronary artery disease: Status: Acute Problem details: Had stent 03/2019 (5) Hypothyroid: Status: Chronic (6) Diabetes: Status: Chronic Reason for Visit Reason for Visit: FALL Hospital Course Hospital Course: Patient was seen and evaluated in the emergency department after a syncopal episode. Patient reports that she has been increasingly lightheaded and dizzy over the past several months and has been undergoing work- up with her primary care provider. She reports that she has had recurrent nosebleeds over the past several months and is followed by ENT. She stated that she has an appointment next week. Patient reports no history of anemia in the past, denied any recent illness or fever. Upon evaluation in the emergency department she was noted to have severe anemia. Microcytic anemia with a hemoglobin of 5.3. Patient was typed and screened and transfused 3 units of packed red blood cells. Patient does have a history of coronary artery disease, therefore goal of her hemoglobin was to be 8 or above. She had recent stent placement in March 2019 and is followed by Dr. Celis. Patient remains on aspirin and Plavix, no evidence of any acute bleeding therefore these medications were continued due to her recent stent. Following transfusion patient reported that she was feeling much better. She denied any further lightheadedness or dizziness, general pallor had improved. Discussed with patient on date of discharge about concern for iron deficiency anemia along with intermittent epistaxis contributing to her anemia. Recommended close follow-up with ENT, follow-up with primary care provider and to be scheduled for EGD and colonoscopy. Patient verbalized understanding and agreed with plan. Discussed with patient plan for discharge to home today with iron supplementation and close follow-up, she verbalized understanding and agreed with plan. Also discussed with patient's about plan of care, he agreed with plan. Physical Exam Const: COMMON NORMALS: patient oriented x3 and alert GENERAL APPEARANCE: cooperative ORIENTATION/CONSCIOUSNESS: Yes awake, Yes oriented to person, Yes oriented to place and Yes oriented to time HENMT: COMMON NORMALS: normocephalic and atraumatic HEAD & SCALP: normocephalic and atraumatic Eye: COMMON NORMALS: Equal, round and reactive pupils present PUPIL: Yes Equal, round and reactive pupils present Neck/C-Spine: COMMON NORMALS: supple GENERAL: Yes normal visual inspection Resp: COMMON NORMALS: normal respiratory effort and clear to auscultation bilaterally EFFORT & INSPECTION: Yes able to speak in complete sentences AUSCULTATION: clear to auscultation bilaterally, no rhonchi and no wheezes Cardio: COMMON NORMALS: regular rate, regular rhythm and No murmurs present (Cardio) RATE: regular rate RHYTHM: regular rhythm GI: COMMON NORMALS: Soft to palpation and non-tender INSPECTION: No abdominal distension AUSCULTATION: Yes normoactive bowel sounds PALPATION: Yes Soft to palpation Extremity: COMMON NORMALS: no clubbing, cyanosis or edema and no calf tenderness Neuro: COMMON NORMALS: patient oriented x3, CN's II-XII intact bilaterally, moves all extremities and no focal motor deficits SENSORIUM/ORIENTATION: Yes alert, Yes oriented to person, Yes oriented to place and Yes oriented to time SPEECH: speech normal Psych: COMMON NORMALS: mental status grossly normal and cooperative Skin: COMMON NORMALS: no rashes or lesions noted GENERAL SKIN EXAM: no rashes or lesions noted Discharge Data Data Completed and Pending: Completed Studies During Hospitalization Category Date Time Status XR lumbar spine 2 -3V* [id number] Stat Exams 10/05/19 07:40 Completed Pending at discharge Category Date Time Status Erythropoietin St at Lab 10/05/19 07:10 Received Immunochemical Fe allie OCB Routine Lab 10/05/19 07:47 Uncollected Leukocyte Reduced RBC Stat Lab 10/05/19 07:49 Results Type and Screen R outine Lab 10/05/19 07:49 Results Labs from last 24 hours 10/06/19 10/06/19 10/06/19 06:10 02:45 02:45 WBC 9.4 RBC 4.58 Hgb 8.2 L Hct 29.7 L MCV 64.8 L D MCH 17.9 L D MCHC 27.6 L D RDW 29.6 H Plt Count 423 H MPV 9.2 Neut % (Auto) 70.5 Lymph % (Auto) 18.4 [place] % (Auto) 6.0 Eos % (Auto) 3.0 Baso % (Auto) 1.1 Neut # (Auto) 6.7 Lymph # (Auto) 1.7 [place] # (Auto) 0.6 Eos # (Auto) 0.3 Baso # (Auto) 0.1 Nucleated RBC % (a uto) 1.0 Nucleated RBCs # 0.1 PT INR Sodium 134 L Potassium 4.0 Chloride 98 Carbon Dioxide 25 Anion Gap 15.0 BUN 10 Creatinine 0.7 GFR Calculation 86.6 L Glucose 212 H POC Glucose 248 Estimat Average Gl ucose Hemoglobin A1c Calculated Osmolal ity 280 L Calcium 9.7 Total Bilirubin 2.0 H AST 44 H ALT 22 Alkaline Phosphata se 104 Total Protein 7.0 Albumin 4.2 Globulin 2.8 TSH Free T4 Free T3 Blood Type Rho(D) Type Antibody Screen Crossmatch 10/05/19 10/05/19 10/05/19 21:03 17:10 16:24 WBC RBC Hgb 7.0 L D Hct 26.4 L MCV MCH MCHC RDW Plt Count MPV Neut % (Auto) Lymph % (Auto) [place] % (Auto) Eos % (Auto) Baso % (Auto) Neut # (Auto) Lymph # (Auto) [place] # (Auto) Eos # (Auto) Baso # (Auto) Nucleated RBC % (a uto) Nucleated RBCs # PT INR Sodium Potassium Chloride Carbon Dioxide Anion Gap BUN Creatinine GFR Calculation Glucose POC Glucose 234 244 Estimat Average Gl ucose Hemoglobin A1c Calculated Osmolal ity Calcium Total Bilirubin AST ALT Alkaline Phosphata se Total Protein Albumin Globulin TSH Free T4 Free T3 Blood Type Rho(D) Type Antibody Screen Crossmatch 10/05/19 10/05/19 10/05/19 11:35 09:39 07:49 WBC RBC Hgb Hct MCV MCH MCHC RDW Plt Count MPV Neut % (Auto) Lymph % (Auto) [place] % (Auto) Eos % (Auto) Baso % (Auto) Neut # (Auto) Lymph # (Auto) [place] # (Auto) Eos # (Auto) Baso # (Auto) Nucleated RBC % (a uto) Nucleated RBCs # PT INR Sodium Potassium Chloride Carbon Dioxide Anion Gap BUN Creatinine GFR Calculation Glucose POC Glucose 329 381 Estimat Average Gl ucose Hemoglobin A1c Calculated Osmolal ity Calcium Total Bilirubin AST ALT Alkaline Phosphata se Total Protein Albumin Globulin TSH Free T4 Free T3 Blood Type A Positive Rho(D) Type Positive Antibody Screen Negative Crossmatch See Detail 10/05/19 10/05/19 10/05/19 07:10 07:10 07:10 WBC RBC Hgb Hct MCV MCH MCHC RDW Plt Count MPV Neut % (Auto) Lymph % (Auto) [place] % (Auto) Eos % (Auto) Baso % (Auto) Neut # (Auto) Lymph # (Auto) [place] # (Auto) Eos # (Auto) Baso # (Auto) Nucleated RBC % (a uto) Nucleated RBCs # PT INR Sodium Potassium Chloride Carbon Dioxide Anion Gap BUN Creatinine GFR Calculation Glucose POC Glucose Estimat Average Gl ucose 212 Hemoglobin A1c 9.0 H Calculated Osmolal ity Calcium Total Bilirubin AST ALT Alkaline Phosphata se Total Protein Albumin Globulin TSH 10.28 H Free T4 0.74 L Free T3 2.1 Blood Type Rho(D) Type Antibody Screen Crossmatch 10/05/19 07:10 WBC RBC Hgb Hct MCV MCH MCHC RDW Plt Count MPV Neut % (Auto) Lymph % (Auto) [place] % (Auto) Eos % (Auto) Baso % (Auto) Neut # (Auto) Lymph # (Auto) [place] # (Auto) Eos # (Auto) Baso # (Auto) Nucleated RBC % (a uto) Nucleated RBCs # PT 13.80 H INR 1.03 Sodium Potassium Chloride Carbon Dioxide Anion Gap BUN Creatinine GFR Calculation Glucose POC Glucose Estimat Average Gl ucose Hemoglobin A1c Calculated Osmolal ity Calcium Total Bilirubin AST ALT Alkaline Phosphata se Total Protein Albumin Globulin TSH Free T4 Free T3 Blood Type Rho(D) Type Antibody Screen Crossmatch Vitals: Last Vital Signs Temp 98.2 F 10/06/19 08:00 Pulse 88 10/06/19 08:00 Resp 16 10/06/19 08:00 BP 130/82 10/06/19 08:00 Pulse Ox 92 10/06/19 08:00 Discharge Plan Discharge Patient Disposition: Home, Self-Care Condition: Stable Prescriptions: New aspirin 81 mg Tablet,Delayed Release (Dr/Ec) 81 mg PO DAILY 30 Days Qty: 30 RF: 0 Vitamin C 500 mg Tablet 500 mg PO BID 30 Days Qty: 60 RF: 0 ferrous sulfate 325 mg (65 mg iron) Tablet,Delayed Release (Dr/Ec) 325 mg PO TIDWM 30 Days Qty: 90 RF: 0 sodium chloride [Saline Mist] 0.65 % Aerosol,[place] 1 spray nasal PRN PRN (Reason: Dryness) 1 Days Qty: 1 RF: 0 levothyroxine 125 mcg capsule 125 mcg PO DAILY 30 Days Qty: 30 RF: 0 Continued hydroxyzine HCl 25 mg tablet 25 mg PO BID PRN (Reason: Anxiety) RF: 0 metoprolol succinate 25 mg tablet extended release 24 hr 12.5 mg PO DAILY RF: 0 Victoza 2-Silas 0.6 mg/0.1 mL (18 mg/3 mL) pen injector 1.8 mg SUBCUT Q24H Qty: 6 RF: 3 nystatin 100,000 unit/gram powder 1 applic TOPICAL TID Qty: 60 RF: 1 Levemir FlexTouch U-100 Insuln 100 unit/mL (3 mL) insulin pen 53 unit SUBCUT DAILY Qty: 15 RF: 2 clopidogrel [Plavix] 75 mg tablet 75 mg PO DAILY Qty: 90 RF: 1 doxepin 75 mg capsule See Rx Instructions .ROUTE .COMPLEX Qty: 60 RF: 0 citalopram 10 mg tablet 10 mg PO DAILY RF: 0 simvastatin 40 mg tablet 40 mg PO DAILY RF: 0 pantoprazole 40 mg tablet,delayed release (DR/EC) 40 mg PO DAILY RF: 0 metformin 1,000 mg tablet 1,000 mg PO BID RF: 0 montelukast 10 mg tablet 10 mg PO DAILY RF: 0 lisinopril 2.5 mg tablet 2.5 mg PO DAILY RF: 0 Januvia 100 mg tablet 100 mg PO DAILY RF: 0 Discontinued aspirin 325 mg tablet 325 mg PO DAILY RF: 0 levothyroxine 112 mcg capsule 112 mcg PO DAILY RF: 0 Discharge Orders: Discharge Order (Routine); Ordered 10/06/19 Ordered By: Carina Gillis Referrals: Morris Parham MD [Physician] - 1 month (Follow-up with general surgery to discuss outpatient EGD and colonoscopy due to iron deficiency anemia. Schedule with first provider available) Adonis Mcgee FNP [Primary Care Provider] - 4-7 days (Will need to recheck TSH and 3 to 4 weeks, due to increase in levothyroxine Will need to be set up for an outpatient EGD and colonoscopy due to iron deficiency Will need recheck of hemoglobin at time of next appointment) Discharge Diet: Cardiac and Diabetic Discharge Activity: Increase activity as tolerated Activity Restrictions/Additional Instructions: Follow-up with primary care provider and 4 to 7 days Follow-up with ENT provider as scheduled next week Follow-up with general surgery to discuss outpatient EGD and colonoscopy You were diagnosed with iron deficiency anemia. Continue with iron supplementation 3 times a day with meals along with a asorbic acid (vitamin C) twice daily Your hemoglobin was low when you came into the hospital which was likely cont ributing to your dizziness, hemoglobin 5.3 on admission and improved to 8.2 after 3 units of blood. Believe this is multifactorial from chronic intermittent nosebleeds as well as iron deficiency. No evidence of any active bleeding during your admission. Continued on aspirin and Plavix, follow-up with cardiology, Dr. Celis as previously scheduled. Your levothyroxine dose was increased to 125 mcg daily. This was due to increase in your TSH on admission. Would recommend recheck TSH with your primary care provider in 3 to 4 weeks. Call your physician or present to the ED for any acute illness or concern Continue to follow a diabetic diet and present a blood sugar log to your primary care provider for further adjustment of insulin as indicated Discharge Attestations Time Spent in Discharge Care*: greater than 30 min Specific Discharge Activities: Specific discharge activities: educating patient, educating and/or supporting family/caregiver and documenting/other paperwork Quality Metrics Clinical Quality Measures During this hospital stay, did patient experience: None Coding Level of Care Code Acute Lightning Protection Installer for Chg Fwd Diagnoses Syncope R55 Anemia D64.9 Hyperlipidemia E78.5 Coronary artery disease I25.10 Hypothyroid E03.9 Diabetes E11.9
[2019-10-06 10:28] VITALS: BP 130/82; PULSE 88; RESP 16; TEMP 36.8; O2SAT 92
--- NOTE | 2019-10-06 10:37 | PC.CHAP ---
Pastoral Care Encounter/Spiritual Assessment Type of Contact [] Declined teradata architect visit [] Patient/Family/Request visit [] Outpatient visit [] Follow-up visit [] Physician referral [] Code/Alert [x] Routine visit [] Staff referral [] Actively dying [] Patient sleeping [] Family support [] [] Out of room [] Palliative care [] [] Receiving care in room [] Pre-surgical visit [] Trauma [] Long length of stay [] ICU visit [] Other: Relational/Emotional Strength [x] Patient feels connected with others/family/visitors/staff [] Distress [] Loneliness/isolation [] Abandonment Spirituality of Patient [x] Person of Mariama [] Attends Buddhist of their Mari[place] [] Believes in Prayer [] Reads Bible or Adventism materials [x] There are Spiritual issues to be addressed [employer]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 Interventions [x] Prayer [x] Active listening [x] Non-anxious presence [x] Spiritual/emotional support [] Crisis/trauma care [x] Spiritual counseling [] Bereavement support [] Provided bereavement packet [] Provided Bible/devotional materials [] Provided toy/stuffed animal, coloring book to patient or family member [] Provided Communion [] Anointing/[place] [] Salvation [x] Completed spiritual assessment [] Other: Impact on Illness or Injury [] Angry [] Fearful [] Anxious [] Often cries [] Exhaustion [] Unable to work [] Unable to attend shinto [] Unable to walk/stand [] Unable to read [] Unable to drive [] Unable to eat/drink [] Unable to sleep [] Unable to be with family [] Patient intubated [x] Other: Summary Patient professed mariama in [place]. 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 Time spent with patient 10 minutes
[2019-10-06 11:41] VITALS: BP 111/73; PULSE 88; RESP 16; TEMP 36.5; O2SAT 95
[2019-10-06 12:12] LABS: Glucose Point of Care 325 mg/dL (70-110)
[2019-10-07 16:45] LABS: Erythropoietin 809.5 mIU/mL (2.6-18.5)
== END 2019-10-06 11:56 | disposition home or self-care (01) | DRG 812 ==
LOC: ER 08:26 → MEDSURG 09:06
PROVIDERS: Family Medicine; Admitting Provider Family Medicine; Family Provider Registered Nurse; PCP Registered Nurse; Visit Provider Family Medicine
DX: D50.9 Iron deficiency anemia, unspecified (principal); R55 Syncope and collapse; M16.0 Bilateral primary osteoarthritis of hip; W18.30XA Fall on same level, unspecified, initial encounter; F41.8 Other specified anxiety disorders; I25.10 Atherosclerotic heart disease of native coronary artery without angina pectoris; Z95.5 Presence of coronary angioplasty implant and graft; E11.65 Type 2 diabetes mellitus with hyperglycemia; E78.5 Hyperlipidemia, unspecified; E03.9 Hypothyroidism, unspecified; Z96.653 Presence of artificial knee joint, bilateral; Z87.891 Personal history of nicotine dependence; Z79.4 Long term (current) use of insulin; Z79.02 Long term (current) use of antithrombotics/antiplatelets
CPT/HCPCS: 12345; 36415; 36416; 36430; 72100; 80053; 80500; 82607; 82668; 82728; 82746; 82962; 83010; 83036; 83540; 83550; 84439; 84443; 84481; 85014; 85018; 85025; 85610; 86850; 86900; 86920; 96361; 96365; 96366; 96372; 96375; 99283; 99285; J1815; J7040; P9016

== ENCOUNTER 2019-10-05 06:31 | Emergency (ER) | payer MEDICAID, SELFPAY | END 2019-10-05 09:54 | disposition admitted as inpatient to this hospital (09) | LOC: ER 10-06 01:49 | PROVIDERS: Emergency Provider Family Medicine; PCP Registered Nurse | DX: R55 Syncope and collapse (principal); E11.9 Type 2 diabetes mellitus without complications; E03.9 Hypothyroidism, unspecified; I25.10 Atherosclerotic heart disease of native coronary artery without angina pectoris; E78.5 Hyperlipidemia, unspecified; D64.9 Anemia, unspecified; Z87.891 Personal history of nicotine dependence | CPT/HCPCS: 36415; 72100; 80053; 80500; 82607; 82668; 82728; 82746; 83010; 83036; 83540; 83550; 84439; 84481; 85025; 85610; 86850; 86900; 86920; 96361; 96365; 96366; 96375; 99283; 99285; J1815; J7040 ==

== ENCOUNTER 2019-11-03 08:02 | Outpatient (CLI) | payer MEDICAID, SELFPAY ==
--- NOTE | 2019-11-03 08:09 | MR_ITS ---
WS: [id number] MRI HEAD WITH CONTRAST WITH ATTENTION TO THE INTERNAL AUDITORY CANALS TECHNIQUE: Sagittal T1, T2 axial, T2 axial flair, axial susceptibility weighted imaging, axial diffus ion weighted images, and coronal T2 images were obtained. Pre and post T1 axial and post T1 coronal i mages. ADC and FSPGR images. Post gadolinium images with attention to the internal auditory canals. A xial fiesta imaging. CLINICAL INFORMATION: BILATERAL HEARING LOSS COMPARISON: None. FINDINGS: No evidence of restricted diffusion to suggest acute ischemia. Ventricular system and basal cisterns are patent. Minimal small vessel changes. No significant parenchymal volume loss. Normal posterior fo ssa. Normal vascular flow voids at the skull base. No extra-axial fluid collections. No evidence of m ass or mass effect. Mild mucosal thickening in the mastoid air cells. Paranasal sinuses are well aera papo. No hemosiderin on susceptibly weighted images. Proximal 7th and 8th cranial nerves are normal. Normal trigeminal nerve root entry zones. No evidence of enhancing IAC or CP angle mass. Normal optic chias m and pituitary infundibulum. Temporal lobes and hippocampal formations are normal in appearance. No abnormal intracranial enhancement. Normal visualized dural venous sinuses. MR/MR iac's wo/w con* [id number] IMPRESSION: 1. No evidence of restricted diffusion to suggest acute ischemia. 2. Proximal 7th and 8th cranial nerves are normal in appearance. No evidence o f enhancing IAC or CP angle mass. 3. Mild mucosal thickening in the mastoid air cells bilaterally. Paranasal sin uses are well aerated. 4. Minimal small vessel changes. No significant parenchymal volume loss. 5. No hemosiderin on susceptibly weighted images. 6. Incidental retention cyst or Tornwaldt cyst posterior nasopharynx.
== END 2019-11-03 08:03 | disposition home or self-care (01) ==
LOC: RADWPI 08:08
PROVIDERS: Family Provider Physician Assistant Medical; PCP Physician Assistant Medical; Visit Provider Otolaryngology
DX: H91.93 Unspecified hearing loss, bilateral (principal)
CPT/HCPCS: 70553; A9579

== ENCOUNTER 2019-11-07 08:02 | Outpatient (CLI) | payer MEDICAID, SELFPAY ==
--- NOTE | 2019-11-07 08:20 | MR_ITS ---
WS: [id number] MRI NECK WITH CONTRAST TECHNIQUE: Noncontrast axial T1, axial T2 FSE fat sat, coronal T2 fat sat, coronal T1, coronal T1 fat sat, sagittal T2 fat sat, plus contrast enhanced coronal, sagittal, and axial T1 fat sat images obta ined. CLINICAL INFORMATION: EPISTAXIS COMPARISON: MRI November 03, 2019 FINDINGS: No evidence of restricted diffusion to suggest acute ischemia. Ventricular system and basal cisterns are patent. No suspicious intracranial signal abnormalities. Normal ceballos-white differentiation. Small vessel changes in the [place]. Paranasal sinuses are well aerated. Mild mucosal thickening in the masto id air cells. Normal vascular flow voids skull base. No extra-axial fluid collections. Temporal lobes and hippocampal formations are normal in appearance. Inferior frontal lobes and gyrus recti are normal in appearance. Both orbits are normal in appearance. Normal optic nerves and rectus muscles. Mild mucosal thickening in the nasal turbinates. Small retention cysts in the posterior nasopharynx. Normal visualized parapharyngeal fat. No abnormal intracranial enhancement. Normal visualized dural venous sinuses. No other significant fi ndings. MR/MR orbit face neck wo/w* [id number] IMPRESSION: 1. No evidence of restricted diffusion to suggest acute ischemia. 2. No suspicious intracranial signal abnormalities. 3. Paranasal sinuses are well aerated. Mild mucosal thickening in the mastoid air cells. 4. A few retention cyst in the posterior nasopharynx. 5. No abnormal intracranial enhancement. 6. Nasal turbinates appear unremarkable.
== END 2019-11-07 08:03 | disposition home or self-care (01) ==
LOC: RADWPI 08:04
PROVIDERS: Family Provider Physician Assistant Medical; PCP Physician Assistant Medical; Visit Provider Specialist
DX: R04.0 Epistaxis (principal); J39.2 Other diseases of pharynx
CPT/HCPCS: 70543; A9579

== ENCOUNTER 2019-11-14 10:25 | Outpatient (CLI) | payer MEDICAID, SELFPAY ==
--- NOTE | 2019-11-14 10:51 | ECG_ITS ---
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 Measurements Intervals [place] Rate: 96 P: 46 KS: 161 QRS: -3 QRSD: 87 T: 56 QT: 343 QTc: 433 Interpretive Statements SINUS RHYTHM MODERATE VOLTAGE CRITERIA FOR LVH, CONSIDER NORMAL VARIANT [MEETS CRITERIA IN ONE OF: R(aVL), S(V1), R(V5), R(V5/V6)+S(V1)] NONSPECIFIC T-WAVE ABNORMALITY Compared to ECG 03/16/2019 06:09:12 T-wave abnormality now present Myocardial infarct finding no longer present Electronically Signed On 11-15-2019 16:28:46 CDT by Shivam Nichols M.D. [id number] f
[2019-11-14 10:57] LABS: Basophils # 0.1 10^3/uL (0.0-0.1); Basophils % 1.6 %; Eosinophils # 0.3 10^3/uL (0.0-0.8); Eosinophils % 3.3 %; Hematocrit 32.3 % (37.0-47.0); Lymphocytes # 1.7 10^3/uL (0.8-4.8); Lymphocytes % 19.8 %; Mean Corpuscular HGB Conc 27.9 g/dL (30.0-36.0); Mean Corpuscular Hemoglobin 23.7 pg (28.0-34.0); Mean Platelet Volume 8.5 fL (7.4-10.4); Monocytes # 0.6 10^3/uL (0.2-0.9); Monocytes % 6.8 %; Neutrophils # 5.68 10^3/uL (1.8-7.7); Neutrophils % 67.8 %; Nucleated Red Blood Cells % 0 %; Platelet Count 287 10^3/cmm (130-400); Red Cell Distribution Width 21.2 % (12.1-15.1); White Blood Count 8.4 10^3/uL (4.0-10.0)
[2019-11-14 11:18] LABS: Anion Gap 15.6 (5-19); Blood Urea Nitrogen 8 mg/dL (6-20); Carbon Dioxide 26 mmol/L (22-29); Chloride 95 mmol/L (98-107); Glomerular Filtration Rate 86.6 mL/min (90-130); Glucose 398 mg/dL (65-115); Osmolality Calculated 287 mOsm/kg (285-295); Potassium 4.6 mmol/L (3.5-5.1); Sodium 132 mmol/L (136-145)
== END 2019-11-14 10:26 | disposition home or self-care (01) ==
LOC: RT 10:28
PROVIDERS: PCP Physician Assistant Medical; Visit Provider Specialist
DX: Z01.810 Encounter for preprocedural cardiovascular examination (principal)
CPT/HCPCS: 36415; 80048; 85025; 93005

== ENCOUNTER 2019-11-22 06:30 | Day surgery (SDC) | payer MEDICAID, SELFPAY ==
[2019-11-22 06:50] VITALS: BP 121/79; PULSE 98; RESP 18; TEMP 36.8; O2SAT 97
--- NOTE | 2019-11-22 07:20 | ANES.PREANE2 ---
Pre-Anesthetic Assessment Pre-Anesthetic Assessment: Height/Weight: Height 1.57 m Weight 97.522 kg Temp Pulse Resp BP Pulse Ox 98.3 F 98 18 121/79 97 11/22/19 06:50 11/22/19 06:50 11/22/19 06:50 11/22/19 06:50 11/22/19 06:50 Preop Diagnosis: epistaxis Proposed Procedure: Operation Date: 11/22/19 08:30 Proposed Procedures p Endoscopic Endonasal Sinus Surgery Left Nasal Mass(Left) - Surinder Tierney MD Familial anesthetic complications: none Last intake: Intake Last Liquid Date 11/21/19 Last Liquid Time 22:00 Last Solid Date 11/21/19 Last Solid Time 18:00 Social: Social History: No alcohol and No tobacco Exam: Pre-Anes Outpt Exam: alert, oriented x 3, clear to auscultation bilaterally and regular rate & rhythm Airway: Cervical ROM: WNL MP: 2 Dentition: Other (edentulous) CV/HEM: CV/HEM: CAD (NSTEMI february, stent placed (SONYA), on plavix, received clearance from cardiology to pause plavix for surgery), HTN and PA : : None reported Hepatic: Hepatic: None reported GI: GI: None reported Metabolic: Metabolic: DM, Hyperlipidemia, Morbid obesity and Thyroid Musc/skel: Musc/skel: OA/DJD Neuropsych: Neuropsych: None reported Anesthetic Plan: ASA status: 4 Anesthesia: General Other: deviated septum, epistaxis - avoid nasal instrumentation Risk of > 500 ml blood loss (7ml/kg in children): No PFSH Anesthesia PFSH: Medical History Anxiety and depression Arthritis Coronary artery disease Had stent 03/2019 Deviated septum Diabetes Hyperlipidemia Hypothyroid Surgical History History of total left knee replacement History of total right knee replacement (~11/2017) History of tubal ligation Hx of heart artery stent (~03/2019) Family History Mother Diabetes Brother Diabetes Heart disease Hypercholesteremia Father Heart disease Sister Uterine cancer Social History Smoking and tobacco status: never smoked Quit status (tobacco): has quit using tobacco Year quit tobacco: age 14 Alcohol intake: never Marital status: History of recent travel: No Data Anesthesia Cardiac Studies: No Data to Display
[2019-11-22] MEDS: metoprolol succinate ER (24 HR) 25 mg Tablet 12.5 MG PO (07:30)
[2019-11-22 07:32] LABS: Glucose Point of Care 297 mg/dL (70-110)
[2019-11-22] MEDS: sodium chloride 0.9% 1,000 ML 30 ML IV (07:32)
[2019-11-22 07:37] LABS: Basophils # 0.1 10^3/uL (0.0-0.1); Basophils % 1.1 %; Eosinophils # 0.2 10^3/uL (0.0-0.8); Eosinophils % 2.8 %; Hemoglobin 8.5 g/dL (11.5-15.3); Lymphocytes # 1.4 10^3/uL (0.8-4.8); Mean Corpuscular HGB Conc 28.3 g/dL (30.0-36.0); Mean Corpuscular Volume 81.1 fL (81-99); Mean Platelet Volume 9.2 fL (7.4-10.4); Monocytes # 0.4 10^3/uL (0.2-0.9); Monocytes % 5.9 %; Neutrophils # 4.36 10^3/uL (1.8-7.7); Neutrophils % 67.9 %; Nucleated Red Blood Cells % 0 %; Platelet Count 301 10^3/cmm (130-400); Red Cell Distribution Width 17.5 % (12.1-15.1); White Blood Count 6.4 10^3/uL (4.0-10.0)
--- NOTE | 2019-11-22 08:45 | W.PM.OPSUD ---
Surgery/Procedure H&P Update DATE OF PROCEDURE: November 22, 2019 DATE H&P PERFORMED: 11/04/19 H&P UPDATE INFORMATION: I have reviewed H&P completed within last 30 days, I have examined patient prior to procedure and No changes to prior documentation PREOP DIAGNOSIS: Recurrent left sided epistaxis PLANNED PROCEDURE: Operation Date: 11/22/19 08:30 Proposed Procedures p Endoscopic Endonasal Sinus Surgery Left Nasal Mass(Left) - Surinder Tierney MD
[2019-11-22] MEDS: lidocaine 4% PF 5 mL INJ XX (09:00)
[2019-11-22] MEDS: mupirocin oint 22 gm 1 APPLIC NOSTRIL-L (09:20)
[2019-11-22] MEDS: thrombin 5,000 unit SDV 5000 UNIT XX (09:30)
[2019-11-22 09:49] VITALS: BP 133/76; PULSE 107; RESP 15; TEMP 36.8; O2SAT 98
--- NOTE | 2019-11-22 09:51 | P.OP_ITS ---
Operative Report Date of procedure: November 22, 2019 Pre-op Diagnosis: Recurrent left sided epistaxis Post-op diagnosis: same Post-op Findings: Polypoid mass, left anterior nasal septum Procedure Done: Endoscopic excisional biopsy, left anterior nasal septal mass Implants: None Specimens removed/disposition: Left anterior nasal septal mass Pathology: Left anterior nasal septal mass Surgeon: Surinder Tierney Senior Hr Manager: Ivy Pastrana Anesthesia: General Estimated blood loss (mL): 5 IV fluids (mL): 800 Complications: None Findings: Exophytic mass, left anterior nasal septum Condition: stable Disposition: PACU Brief History: The patient is a 54-year-old white female who takes Plavix who has a history of recurrent left-sided epistaxis who was noted to have a left anterior nasal septal mass. The patient presents today for excisional biopsy under anesthesia. Procedure: The patient was identified the preoperative holding area and was taken to the operating room where she was placed on the operating table in supine position. Anesthesia was obtained with general endotracheal anesthesia and the patient was then prepped and draped in usual sterile fashion. The left nasal septum was injected with local anesthesia and a topical Afrin/lidocaine soaked neuro pledgets were then placed in the left nasal cavity. 10 minutes were allowed to pass. The pledgets were then removed from the left nasal cavity, and the 0 degree [place] peewee surgical telescope with the attached video camera system was then used to inspect the left nasal cavity with the findings noted above. The left anterior nasal septal mass was then removed with a pair of Alvaro forceps. Hemostasis was then achieved at the left anterior nasal septal surgical site with monopolar suction cautery and the wound was then covered with Surgi-[place] and Surgicel and a [place] nasal tampon that had been covered with Bactroban. At this point the procedure was terminated and control of the patient was returned to anesthesia where she underwent an uneventful reversal of anesthesia and extubation and was taken to the recovery room in stable condition. There were no operative or anesthetic complications
[2019-11-22 09:54] VITALS: BP 136/80; PULSE 103; RESP 16; TEMP 36.7; O2SAT 98
[2019-11-22 10:01] VITALS: BP 154/69; PULSE 102; RESP 18; TEMP 36.6; O2SAT 96
[2019-11-22] MEDS: oxymetazoline 0.05% Nasal Spray 15 mL 2 SPRAY NOSTRIL-L (10:22)
[2019-11-22 10:25] VITALS: BP 109/92; PULSE 93; RESP 18; TEMP 36.7; O2SAT 95
== END 2019-11-22 10:39 | disposition home or self-care (01) ==
PROVIDERS: PCP Physician Assistant Medical; Visit Provider Specialist
PROC: (CPT 31231; principal; 2019-11-22 08:20)
DX: R04.0 Epistaxis (principal); J34.89 Other specified disorders of nose and nasal sinuses; Z79.02 Long term (current) use of antithrombotics/antiplatelets; I25.10 Atherosclerotic heart disease of native coronary artery without angina pectoris; Z95.5 Presence of coronary angioplasty implant and graft; I10 Essential (primary) hypertension; I25.2 Old myocardial infarction; E11.9 Type 2 diabetes mellitus without complications; E78.5 Hyperlipidemia, unspecified; E66.01 Morbid (severe) obesity due to excess calories; Z68.39 Body mass index [BMI] 39.0-39.9, adult; E03.9 Hypothyroidism, unspecified; Z82.49 Family history of ischemic heart disease and other diseases of the circulatory system; Z83.3 Family history of diabetes mellitus
CPT/HCPCS: 30100; 12345; 36416; 82962; 85025; 88304; J1100; J2405; J2704; J2710; J3010; J3490; J7030

== ENCOUNTER 2019-12-17 15:17 | Observation (INO) | payer MEDICAID, SELFPAY ==
[2019-12-17] VITALS (20 sets, daily range): BP systolic 94–127; BP diastolic 56–86; PULSE 92–126; RESP 13–26; TEMP 36.4–36.8; O2SAT 94–100; BMI 39.3
--- NOTE | 2019-12-17 16:28 | ED_ITS ---
HPI - Epistaxis General: Chief complaint: Epistaxis Stated complaint: epistaxis Time Seen by Provider: 12/17/19 16:16 Source: patient Mode of arrival: ambulatory Limitations: no limitations History of Present Illness: HPI Narrative: Mrs. Fish is a very nice 54-year-old female who comes in complaining of a nosebleed. Patient has a history of recurrent nosebleeds and recently had her left nostril cauterized by Dr. Tierney in the office. She been recovering well but then had a nosebleed recently and then another one today. Today's nosebleed she could not get the stop. Because of this she came here to the hospital. Patient says she has a history of anemia but currently denies any chest pain, shortness of breath, syncope or near syncope. Patient does not report any sensation of drainage down the back of her throat. Associated symptoms: Deny fever(s), headache(s), syncope or vomiting Review of Systems Const: Denies: fever(s), chills, body aches, fatigue, malaise or diaphoresis Eyes: Denies: change in vision, blurry vision, photophobia, eye discomfort, eye discharge or eye redness ENMT: Denies: throat pain, odynophagia, hoarseness, swelling of lips/tongue, ear or mastoid pain, ear discharge or change in hearing Card: Denies: chest pain, palpitations, irregular heart rhythm, edema, lightheadedness, syncope, pre-syncope, dyspnea on exertion or orthopnea Resp: Denies: dyspnea, productive cough, non-productive cough, wheezing, hemoptysis or chest congestion GI: Denies: abdominal pain, nausea, vomiting, hematemesis, coffee ground emesis, heartburn, diarrhea, constipation, GI cramping, hematochezia or melena : Denies: flank pain, dysuria, urinary frequency, urinary urgency or hematuria Musc: Denies: neck pain, back pain, extremity pain, extremity swelling, joint pain, joint swelling, joint redness, joint warmth or joint stiffness Skin/Breast: Denies: rash, pruritus, erythema or skin tenderness Neuro: Denies: headache(s), numbness in extremities, weakness in extremities, sensory changes, lack of coordination, difficulty walking, dizziness, vertigo, confusion, Slurred speech present or seizure-like activity Caio/Lymph: Denies: easy bruising, easy bleeding, petechiae, purpura or enlarged lymph nodes All/Imm: Denies: urticaria, throat swelling, tongue swelling, facial swelling or acute wheezing PFSH ED PFSH: Medical History (Updated 12/17/19 @ 22:02 by Jojo Suazo) Anemia Anxiety and depression Arthritis Coronary artery disease Had stent 03/2019 Depression Deviated septum Diabetes Hyperlipidemia Hypertension Hypothyroid Surgical History (Updated 12/17/19 @ 17:39 by Vinay Davis MD) History of nasal cauterization History of total left knee replacement History of total right knee replacement (~11/2017) History of tubal ligation Hx of heart artery stent (~03/2019) Family History Mother Diabetes Brother Diabetes Heart disease Hypercholesteremia Father Heart disease Sister Uterine cancer Social History Smoking and tobacco status: never smoked Quit status (tobacco): has quit using tobacco Year quit tobacco: age 14 Alcohol intake: never Substance/Drug Use: never Marital status: History of recent travel: No Physical Exam Const: COMMON NORMALS: no acute distress, patient oriented x3, no limitations, healthy appearing and well nourished GENERAL APPEARANCE: cooperative, well kempt and well developed HENMT: COMMON NORMALS: normocephalic, atraumatic, external ears normal, EAC's normal and Normal external nose present HEAD & SCALP: normal to inspection, normocephalic and atraumatic FACE & SINUS: normal facial exam and face symmetric NOSE: Normal external nose present, Epistaxis present on the left anterior source, active bleeding and source not visualized (Secondary to brisk bleeding) and Other nasal findings present EXTERNAL EAR: Yes external ears normal EXTERNAL AUDITORY CANAL: EAC's normal MOUTH: Normal oral and palatal mucosa present, lip normal and tongue normal Eye: COMMON NORMALS: Equal, round and reactive pupils present and conjunctivae normal GENERAL EYE: appearance normal, both eyes and all related structures ALIGNMENT: Yes alignment normal PERIORBITAL: periorbital findings normal EYELID: eyelids normal CONJUNCTIVA: Yes conjunctivae normal SCLERA: sclerae normal PUPIL: Yes Equal, round and reactive pupils present Neck/C-Spine: COMMON NORMALS: full ROM, no lymphadenopathy, supple, no meningeal signs and no JVD GENERAL: Yes normal visual inspection and Yes trachea midline Chest: COMMONS NORMALS: normal inspection of the chest and normal palpation of entire chest wall Resp: COMMON NORMALS: normal respiratory effort, No retractions, No use of accessory muscles and clear to auscultation bilaterally EFFORT & INSPECTION: Yes able to speak in complete sentences and Yes symmetric chest movement AUSCULTATION: clear to auscultation bilaterally, no crackles, no rales, no rhonchi and no wheezes Cardio: COMMON NORMALS: no JVD, regular rate, regular rhythm, S1 normal heart sound present and S2 normal heart sound present RATE: regular rate RHYTHM: regular rhythm HEART SOUNDS: S1 normal heart sound present, S2 normal heart sound present, no click, no gallops, no murmurs, no rubs and abnormal split S2 GI: COMMON NORMALS: Soft to palpation and No hepatosplenomegaly present PALPATION: Yes Soft to palpation, No Tenderness to palpation present (GI), No Guarding due to palpation present (GI), No Rigid due to palpation, Yes No hepatosplenomegaly present, No Hernia present, No Palpable mass present and No Pulsatile mass present : COMMON NORMALS: Yes no CVA tenderness BLADDER/KIDNEY EXAM: Yes no CVA tenderness EXTERNAL FEMALE EXAM: No Hernia present Back/Pelvis: COMMON NORMALS: no CVA tenderness, thoracic and lumbar spine normal to inspection, no thoracic nor lumbar tenderness and thoraco-lumbar ROM normal Extremity: COMMON NORMALS: normal to inspection, full ROM, capillary refill normal, no joint enlargement, no clubbing, cyanosis or edema and no calf tenderness Neuro: COMMON NORMALS: patient oriented x3, CN's II-XII intact bilaterally, moves all extremities, no focal motor deficits and no sensory deficits noted MENINGEAL SIGNS: Yes no meningeal signs SPEECH: speech normal Psych: COMMON NORMALS: mental status grossly normal, Normal thought process present, cooperative, normal affect, speech normal and activity/motor behavior normal APPEARANCE: Yes well kempt SPEECH: Yes normal speech THOUGHT PROCESS: Normal thought process present Skin: COMMON NORMALS: no rashes or lesions noted, turgor normal, no jaundice, no petechiae and no mottling GENERAL SKIN EXAM: no rashes or lesions noted and turgor normal Procedures Epistaxis Control Time Out Performed: Yes Nostril: left Nose Prepped With: oxymetazoline Direct Inspection: yes and unable to visualize Clots Removed by: blowing nose Device Inserted: hemostatic balloon Patient Tolerated Procedure: well and no complications Course Vital Signs: Vital signs: Vital Signs Temperature 97.9 F 12/17/19 20:39 Pulse Rate 99 12/17/19 20:30 Respiratory Rate 25 H 12/17/19 20:30 Blood Pressure 111/75 12/17/19 20:30 Pulse Oximetry 98 12/17/19 20:30 MDM - Epistaxis MDM Narrative: Medical decision making narrative: The patient has significant anemia and I think will likely show a lower blood count as she was still bleeding when she got here. She is very pale. She is had some hypotensive pressures. I reviewed the case in full with Dr. Tierney who stated he would be available for consult if necessary. I then reviewed the case with Dr. Davis who is agreeable to admission for transfusion and monitoring of blood pressure. Lab Data: Labs: Lab Results 12/17/19 12/17/19 12/17/19 Range/Units 16:35 16:35 16:35 WBC 13.5 H (4.0-10.0) 10^3/ uL RBC 3.14 L (4.1-5.3) 10^6/u L Hgb 6.5 L* (11.5-15.3) g/dL Hct 23.3 L (37.0-47.0) % MCV 74.2 L (81-99) fL MCH 20.7 L (28.0-34.0) pg MCHC 27.9 L (30.0-36.0) g/dL RDW 19.8 H (12.1-15.1) % Plt Count 398 (130-400) 10^3/c mm MPV 9.5 (7.4-10.4) fL Neut % (Auto) 81.6 % Lymph % (Auto) 10.8 % [place] % (Auto) 5.2 % Eos % (Auto) 0.7 % Baso % (Auto) 1.1 % Neut # (Auto) 11.00 H (1.8-7.7) 10^3/u L Lymph # (Auto) 1.5 (0.8-4.8) 10^3/u L [place] # (Auto) 0.7 (0.2-0.9) 10^3/u L Eos # (Auto) 0.1 (0.0-0.8) 10^3/u L Baso # (Auto) 0.2 H (0.0-0.1) 10^3/u L Nucleated RBC % (a uto) 0 % Nucleated RBCs # 0.0 /100WBC PT 15.10 H (12.1-14.9) SECO NDS INR 1.15 (0.8-1.2) APTT (23.9-36.7) SECO NDS Sodium 129 L (136-145) mmol/L Potassium 4.7 (3.5-5.1) mmol/L Chloride 96 L (98-107) mmol/L Carbon Dioxide 22 (22-29) mmol/L Anion Gap 15.7 (5-19) BUN 17 (6-20) mg/dL Creatinine 0.9 (0.5-0.9) mg/dL GFR Calculation 64.8 L (90-130) mL/min Glucose 570 H* (65-115) mg/dL Calculated Osmolal ity 291 (285-295) mOsm/k g Calcium 8.8 (8.5-10.5) mg/dL Total Bilirubin 0.4 (0.15-1.2) mg/dL AST 35 H (0-32) U/L ALT 22 (0-33) U/L Alkaline Phosphata se 112 H (35-105) IU/L Total Protein 6.6 (6.6-8.7) g/dL Albumin 4.0 (3.5-5.2) g/dL Globulin 2.6 (1.3-4.6) g/dL TSH 0.60 (0.27-4.20) uIU/ mL Blood Type Rho(D) Type Antibody Screen Crossmatch 12/17/19 12/17/19 Range/Units 16:40 17:25 WBC (4.0-10.0) 10^3/ uL RBC (4.1-5.3) 10^6/u L Hgb (11.5-15.3) g/dL Hct (37.0-47.0) % MCV (81-99) fL MCH (28.0-34.0) pg MCHC (30.0-36.0) g/dL RDW (12.1-15.1) % Plt Count (130-400) 10^3/c mm MPV (7.4-10.4) fL Neut % (Auto) % Lymph % (Auto) % [place] % (Auto) % Eos % (Auto) % Baso % (Auto) % Neut # (Auto) (1.8-7.7) 10^3/u L Lymph # (Auto) (0.8-4.8) 10^3/u L [place] # (Auto) (0.2-0.9) 10^3/u L Eos # (Auto) (0.0-0.8) 10^3/u L Baso # (Auto) (0.0-0.1) 10^3/u L Nucleated RBC % (a uto) % Nucleated RBCs # /100WBC PT (12.1-14.9) SECO NDS INR (0.8-1.2) APTT 25.7 (23.9-36.7) SECO NDS Sodium (136-145) mmol/L Potassium (3.5-5.1) mmol/L Chloride (98-107) mmol/L Carbon Dioxide (22-29) mmol/L Anion Gap (5-19) BUN (6-20) mg/dL Creatinine (0.5-0.9) mg/dL GFR Calculation (90-130) mL/min Glucose (65-115) mg/dL Calculated Osmolal ity (285-295) mOsm/k g Calcium (8.5-10.5) mg/dL Total Bilirubin (0.15-1.2) mg/dL AST (0-32) U/L ALT (0-33) U/L Alkaline Phosphata se (35-105) IU/L Total Protein (6.6-8.7) g/dL Albumin (3.5-5.2) g/dL Globulin (1.3-4.6) g/dL TSH (0.27-4.20) uIU/ mL Blood Type A Positive Rho(D) Type Positive Antibody Screen Negative Crossmatch See Detail EKG Data^: EKG 1: Attestation: I personally reviewed and interpreted this EKG as follows: EKG interpretation date: 12/17/19 EKG interpretation time: 17:14 Interpretation: Sinus tachycardia 101 beats a minute, LVH, no acute ST-T wave changes. Discharge Plan Discharge Patient Disposition: Admitted As Inpatient Admit Provider: Vinay Davis Clinical Impression: Epistaxis, Anemia Condition: Stable Interventions: ED Discharge Assessment Last Done: 12/17/19 20:02 ED Charges Last Done: 12/17/19 20:02 Discharge Date/Time: 12/17/19 20:03 Coding Level of Care Code ED [employer] Supervisor for Chg Fwd Exam Comprehensive
[2019-12-17] MEDS: oxymetazoline 0.05% Nasal Spray 15 mL 2 SPRAY NOSTRIL-L (16:53)
[2019-12-17 16:54] LABS: Basophils # 0.2 10^3/uL (0.0-0.1); Basophils % 1.1 %; Eosinophils # 0.1 10^3/uL (0.0-0.8); Eosinophils % 0.7 %; Hematocrit 23.3 % (37.0-47.0); Lymphocytes # 1.5 10^3/uL (0.8-4.8); Lymphocytes % 10.8 %; Mean Corpuscular HGB Conc 27.9 g/dL (30.0-36.0); Mean Corpuscular Hemoglobin 20.7 pg (28.0-34.0); Mean Corpuscular Volume 74.2 fL (81-99); Mean Platelet Volume 9.5 fL (7.4-10.4); Monocytes # 0.7 10^3/uL (0.2-0.9); Monocytes % 5.2 %; Neutrophils % 81.6 %; Nucleated Red Blood Cells % 0 %; Platelet Count 398 10^3/cmm (130-400); Red Blood Count 3.14 10^6/uL (4.1-5.3); Red Cell Distribution Width 19.8 % (12.1-15.1); White Blood Count 13.5 10^3/uL (4.0-10.0)
[2019-12-17 16:56] LABS: Hemoglobin 6.5 g/dL (11.5-15.3)
[2019-12-17] MEDS: HYDROcodone-acetaminophen 5-325 mg Tablet 1 TAB PO (16:57)
[2019-12-17] MEDS: sodium chloride 0.9% 1,000 ML 999 ML IV ×2 (16:58→22:02)
--- NOTE | 2019-12-17 16:59 | ECG_ITS ---
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 Measurements Intervals [place] Rate: 101 P: 2 HI: 154 QRS: -5 QRSD: 86 T: 64 QT: 339 QTc: 440 Interpretive Statements SINUS TACHYCARDIA MODERATE VOLTAGE CRITERIA FOR LVH, CONSIDER NORMAL VARIANT [MEETS CRITERIA IN ONE OF: R(aVL), S(V1), R(V5), R(V5/V6)+S(V1)] Non specific T wave abnormality Compared to ECG 11/14/2019 10:45:32 Sinus tachycardia is now present Electronically Signed On 12-17-2019 19:05:56 CDT by Chriss Arvizu M.D. [id number]
[2019-12-17 17:02] LABS: INR 1.15 (0.8-1.2)
--- NOTE | 2019-12-17 17:34 | PM.HP ---
Providers/Chief Complaint Primary Care Provider: Artur Nuñez Chief Complaint: nose bleed History of Present Illness Tonie Fish is a 54 year old female that presents to the emergency department with complaints of a nosebleed. She states she has had quite a bit of blood out. She had some bleeding last night, and this stopped after pressure. This reoccurred today, and was very brisk. She therefore came in. She had a recent admission in September of this year where she required blood with observation. She denies any fever. She denies any exposure COVID or personal history of COVID. She reports otherwise she was doing well prior to the bleeding. She states she is on Plavix and aspirin secondary to her coronary disease. She did have history of cauterization of the nasal vessel several months ago by Dr. Tierney. In talking to the emergency department physician ENT will be available for this patient should she have recurrent bleeding. Review of Systems General: Reports: 10 or more systems reviewed and unremarkable except in HPI and below Const: Denies: fever(s) Eyes: Denies: change in vision ENMT: Reports: nasal discharge (Epistaxis); Denies: throat pain Card: Denies: chest pain Resp: Denies: dyspnea GI: Denies: abdominal pain : Denies: flank pain Musc: Denies: neck pain Skin/Breast: Denies: rash Neuro: Denies: headache(s) Psych: Denies: anxiety Endo: Denies: polyuria Caio/Lymph: Denies: easy bruising All/Imm: Denies: urticaria Medications/Allergies Home Medications Medication Instructions Recorded Confirmed Last Taken Type hydroxyzine HCl 25 mg tablet 25 mg PO BID PRN 05/05/19 12/17/19 12/17/19 History metoprolol succinate 25 mg 12.5 mg PO DAILY tab 05/05/19 12/17/19 12/17/19 History tablet,extended release 24 hr clopidogrel 75 mg tablet 75 mg PO DAILY #90 tab 08/26/19 12/17/19 12/17/19 Rx citalopram 10 mg PO DAILY 10/05/19 12/17/19 12/16/19 History lisinopril 2.5 mg PO DAILY 10/05/19 12/17/19 12/17/19 History simvastatin 40 mg PO DAILY 10/05/19 12/17/19 12/17/19 History blood sugar diagnostic #200 each 11/08/19 12/17/19 Unknown Rx insulin detemir U-100 100 unit/mL 53 unit SUBCUT DAILY #15 ml 11/08/19 12/17/19 12/16/19 Rx (3 mL) subcutaneous pen lancets 33 gauge #100 each 11/08/19 12/17/19 Unknown Rx levothyroxine 112 mcg capsule 112 mcg PO DAILY #90 cap 11/08/19 12/17/19 12/16/19 Rx pen needle, diabetic 31 gauge x See Rx Instructions .ROUTE 11/08/19 12/17/19 Unknown Rx 5/16 .COMPLEX #100 each metformin 1,000 mg tablet See Rx Instructions .ROUTE 11/21/19 12/17/19 12/17/19 Rx .COMPLEX #60 tab hydrocodone-acetaminophen [[place]] 1 tab PO Q6H PRN #25 tab 11/22/19 12/17/19 12/17/19 Rx liraglutide 0.6 mg/0.1 mL (18 mg/3 See Rx Instructions .ROUTE 11/28/19 12/17/19 12/17/19 Rx mL) subcutaneous pen injector .COMPLEX #6 ml doxepin 75 mg capsule See Rx Instructions .ROUTE 12/05/19 12/17/19 12/16/19 Rx .COMPLEX #60 cap montelukast 10 mg tablet 10 mg PO DAILY #90 tab 12/05/19 12/17/19 12/17/19 Rx pantoprazole 40 mg tablet,delayed 40 mg PO DAILY #90 tab 12/05/19 12/17/19 12/17/19 Rx release sitagliptin 100 mg tablet 100 mg PO DAILY #30 tab 12/05/19 12/17/19 12/17/19 Rx Allergies Allergy/AdvReac Type Severity Reaction Status Date / Time No Known Allergies Allergy Verified 12/17/19 17:17 PFSH Acute PFSH: Medical History (Updated 12/17/19 @ 17:41 by Vinay Davis MD) Anemia Anxiety and depression Arthritis Coronary artery disease Had stent 03/2019 Depression Deviated septum Diabetes Hyperlipidemia Hypertension Hypothyroid Surgical History (Updated 12/17/19 @ 17:39 by Vinay Davis MD) History of nasal cauterization History of total left knee replacement History of total right knee replacement (~11/2017) History of tubal ligation Hx of heart artery stent (~03/2019) Family History Mother Diabetes Brother Diabetes Heart disease Hypercholesteremia Father Heart disease Sister Uterine cancer Social History Smoking and tobacco status: never smoked Quit status (tobacco): has quit using tobacco Year quit tobacco: age 14 Alcohol intake: never Substance/Drug Use: never Marital status: History of recent travel: No Vitals/I&O/Wt Last Vital Signs Temp 97.6 F 12/17/19 15:39 Pulse 105 H 12/17/19 17:31 Resp 20 H 12/17/19 17:31 BP 99/59 12/17/19 17:31 Pulse Ox 95 12/17/19 17:31 Weight last 48 hrs Weight 97.522 kg Physical Exam Narrative: EXAM NARRATIVE: General exam is a white female, no apparent distress. Left-sided Rhino Rocket in place. Pale appearing HEENT: See above. Oropharynx evaluated and no evidence of active bleeding from nasopharynx. Neck is supple no lymphadenopathy or thyromegaly Cardiovascular tachycardic, no murmur Lungs clear no wheezing or crackles Abdomen is soft nontender with positive bowel sounds. Obese. No obvious organomegaly was deferred Extremities no cyanosis clubbing or edema, cap refill brisk Skin no rash Neuro no obvious focal deficits. Data : 12/17/19 16:35 12/17/19 16:35 Other data: CMP is pending. TSH is ordered. Previous labs note iron deficiency anemia A&P Assessment and plan (1) Epistaxis: Significant nosebleed requiring Rhino Rocket Continue to monitor for re-any rebleeding Hold aspirin and Plavix currently. She did take these today. Reevaluate tomorrow. If no evidence of rebleeding consider restart of Plavix tomorrow but will not restart aspirin Will leave Rhino Rocket in at discharge Augmentin 875 mg twice daily for prophylaxis secondary to intranasal device Status: Acute (2) Anemia: Transfers 2 units of packed red blood cells and recheck hemoglobin following. We will try to transfuse to hemoglobin greater than 8 considering comorbidities, history of recurrent severe bleeding with need for transfusion in the past. Consistent with acute blood loss anemia superimposed on chronic iron deficiency anemia(last hemoglobin documented 8.5 11/21) Status: Acute (3) Hypotension: IV hydration. Boluses being given in the ER of isotonic saline Continue saline at 125 cc an hour upon admission to the ICU Blood pressure should improve significantly after 2 units of packed red blood cells Status: Acute Additional A&P Information History of coronary disease. Asymptomatic currently. Continue statin. Holding beta-poonam secondary to hypotension. Holding Plavix and aspirin secondary to current active bleeding. Type 2 diabetes. Sliding scale insulin GERD, continue Protonix Hypothyroidism. Check TSH. Continue levothyroxine. Full code SCDs for DVT prophylaxis secondary to active bleeding Attestations Medical Necessity Statement*: Will need less than 2 midnight stay for evaluation and treatment of hypotension, nosebleed requiring transfusion secondary to anemia. Coding Level of Care Code Acute Vmware Architect for Benigno Raymond Diagnoses Epistaxis R04.0 Anemia D64.9 Hypotension I95.9
--- NOTE | 2019-12-17 17:46 | PC.NURSE ---
Tried calling report @ 1444, room not ready or discharged off the ICU board. ER Charge asked if I could call report and tell ICU I would HOLD pt until room was ready. Call ICU back and asked if I could give report and hold on to pt until room was ready. It in the best interest of the floor NOT to take report. Informed ER charge. Pt is stable and ready for the floor.
[2019-12-17 17:49] LABS: Partial Thromboplastin Time 25.7 SECONDS (23.9-36.7)
[2019-12-17 17:54] LABS: Alanine Aminotransferase 22 U/L (0-33); Alkaline Phosphatase 112 IU/L (35-105); Anion Gap 15.7 (5-19); Aspartate Amino Transferase 35 U/L (0-32); Blood Urea Nitrogen 17 mg/dL (6-20); Calcium 8.8 mg/dL (8.5-10.5); Carbon Dioxide 22 mmol/L (22-29); Chloride 96 mmol/L (98-107); Globulin 2.6 g/dL (1.3-4.6); Glomerular Filtration Rate 64.8 mL/min (90-130); Osmolality Calculated 291 mOsm/kg (285-295); Potassium 4.7 mmol/L (3.5-5.1); Sodium 129 mmol/L (136-145); Total Bilirubin 0.4 mg/dL (0.15-1.2); Total Protein 6.6 g/dL (6.6-8.7)
[2019-12-17 18:22] LABS: Glucose 570 mg/dL (65-115)
[2019-12-17 21:45] LABS: Glucose Point of Care 437 mg/dL (70-110)
[2019-12-17] MEDS: amoxicillin-clav 875-125 mg Tablet 1 TAB PO (21:50)
[2019-12-17] MEDS: sodium chloride 0.9% 1,000 ML 125 ML IV (22:02)
[2019-12-18] VITALS (59 sets, daily range): BP systolic 108–173; BP diastolic 67–100; PULSE 87–117; RESP 12–25; TEMP 36.4–36.8; O2SAT 94–99
[2019-12-18 00:02] LABS: Bilirubin Urine Neg (NEGATIVE); Blood Urine Neg (Negative); Glucose Urine UA 4+ (Normal); Ketones Urine 1+ (Negative); Leukocyte Esterase Urine Negative (Negative); Nitrate Urine Negative (Negative); Protein Urine Neg (Negative); Urine Appearance Clear (CLEAR); Urine Color Yellow (Yellow); Urobilinogen Urine Norm (Negative); pH Urine 5 (5-7)
[2019-12-18 00:04] LABS: Add Urine Culture? No; Bacteria Urine TRACE; RBC Urine 0-4 /hpf (0-2); Squamous Epithelial Cell Urine 0-4 (0-5); WBC Urine 0-4 /hpf (0-5)
[2019-12-18 03:31] LABS: Basophils # 0.1 10^3/uL (0.0-0.1); Eosinophils # 0.1 10^3/uL (0.0-0.8); Eosinophils % 1.3 %; Hematocrit 26.5 % (37.0-47.0); Lymphocytes # 2.3 10^3/uL (0.8-4.8); Lymphocytes % 25.2 %; Mean Corpuscular HGB Conc 30.2 g/dL (30.0-36.0); Mean Corpuscular Hemoglobin 22.9 pg (28.0-34.0); Mean Corpuscular Volume 75.7 fL (81-99); Mean Platelet Volume 9.6 fL (7.4-10.4); Monocytes # 0.7 10^3/uL (0.2-0.9); Monocytes % 7.4 %; Neutrophils # 5.87 10^3/uL (1.8-7.7); Neutrophils % 64.8 %; Nucleated Red Blood Cells % 0 %; Platelet Count 321 10^3/cmm (130-400); Red Cell Distribution Width 20.2 % (12.1-15.1); White Blood Count 9.1 10^3/uL (4.0-10.0)
[2019-12-18 03:58] LABS: Anion Gap 10.8 (5-19); Blood Urea Nitrogen 15 mg/dL (6-20); Calcium 8.7 mg/dL (8.5-10.5); Carbon Dioxide 26 mmol/L (22-29); Chloride 102 mmol/L (98-107); Glomerular Filtration Rate 86.6 mL/min (90-130); Glucose 252 mg/dL (65-115); Osmolality Calculated 285 mOsm/kg (285-295); Potassium 3.8 mmol/L (3.5-5.1); Sodium 135 mmol/L (136-145)
[2019-12-18] MEDS: HYDROcodone-acetaminophen 5-325 mg Tablet 1 TAB PO (04:38)
[2019-12-18] MEDS: sodium chloride 0.9% 1,000 ML 125 ML IV (04:41)
--- NOTE | 2019-12-18 06:16 | PC.NURSE ---
2204 on 12/17/19 nurse administered 16 units of insulin per order with verification. Admnistration not appropriately reflecting on JUN.
[2019-12-18 07:16] LABS: Glucose Point of Care 231 mg/dL (70-110)
[2019-12-18] MEDS: atorvastatin 40 mg Tablet 20 MG PO (07:51)
[2019-12-18] MEDS: levothyroxine 112 mcg Tablet PO (07:51)
[2019-12-18] MEDS: amoxicillin-clav 875-125 mg Tablet 1 TAB PO (07:52)
[2019-12-18] MEDS: metoprolol succinate ER (24 HR) 25 mg Tablet 12.5 MG PO (07:52)
[2019-12-18] MEDS: citalopram 20 mg Tablet 10 MG PO (07:53)
[2019-12-18] MEDS: pantoprazole DR 40 mg Tablet PO (07:54)
[2019-12-18] MEDS: clopidogrel 75 mg Tablet PO (08:30)
--- NOTE | 2019-12-18 09:36 | PM.DCS ---
Discharge Providers Date of Admission: 12/17/19 17:33 Date of Discharge: December 18, 2019 Attending Provider at Admission: Vinay Davis MD Attending Provider at Discharge: Vinay Davis MD Primary Care Provider: Artur Nuñez Diagnoses at Discharge Discharge Diagnosis (1) Epistaxis: Status: Acute Problem details: Hemostasis intact with a Rhino Rocket left nares (2) Anemia: Status: Acute Problem details: Improved after transfusion 2 units. Hemoglobin 8.0 on discharge. Qualifiers: Anemia type: other cause Other causes of anemia: acute posthemorrhagic Qualified Code(s): D62 - Acute posthemorrhagic anemia (3) Hypotension: Status: Acute Reason for Visit Reason for Visit: nose bleed Hospital Course Hospital Course: Tonie is a 54-year-old white female with history of coronary disease and stenting March 2019 who presented with recurrent epistaxis. She had had previous cauterization. She was taking both Plavix and aspirin at home and had received her doses on day of admission as well. She was found to be significantly anemic in the emergency department, actively bleeding from her left nares. A Rhino Rocket was placed in her left nares. Hemostasis was intact. She was admitted to the ICU, transfused 2 units of packed red blood cells for her symptomatic anemia. The following day she was still not actively bleeding. Rhino Rocket was in place. Hemoglobin 8.0. She had no symptoms up and ambulating. She will be discharged home. She was told not to take her aspirin. She can continue her Plavix secondary to her history of coronary stenting with an the last year. She will follow-up with ENT in the next 4 to 7 days and her primary care provider as well for repeat CBC. She is to return for any active bleeding. Physical Exam Narrative: EXAM NARRATIVE: General exam no apparent distress Cardiovascular regular rate and rhythm without murmur Lungs clear Abdomen is soft with positive bowel sounds Extremities no cyanosis clubbing or edema Discharge Data Data Completed and Pending: Labs from last 24 hours 12/18/19 12/18/19 12/18/19 07:13 03:20 03:02 WBC 9.1 RBC 3.50 L Hgb 8.0 L Hct 26.5 L MCV 75.7 L MCH 22.9 L D MCHC 30.2 D RDW 20.2 H Plt Count 321 MPV 9.6 Neut % (Auto) 64.8 Lymph % (Auto) 25.2 [place] % (Auto) 7.4 Eos % (Auto) 1.3 Baso % (Auto) 1.0 Neut # (Auto) 5.87 Lymph # (Auto) 2.3 [place] # (Auto) 0.7 Eos # (Auto) 0.1 Baso # (Auto) 0.1 Nucleated RBC % (a uto) 0 Nucleated RBCs # 0.0 PT INR APTT Sodium 135 L Potassium 3.8 Chloride 102 Carbon Dioxide 26 Anion Gap 10.8 BUN 15 Creatinine 0.7 GFR Calculation 86.6 L Glucose 252 H POC Glucose 231 Calculated Osmolal ity 285 Calcium 8.7 Total Bilirubin AST ALT Alkaline Phosphata se Total Protein Albumin Globulin TSH Urine Color Urine Appearance Urine pH Ur Specific Gravit y Urine Protein Urine Glucose (UA) Urine Ketones Urine Blood Urine Nitrate Urine Bilirubin Urine Urobilinogen Ur Leukocyte Donita ase Urine RBC Urine WBC Ur Squamous Epith Cells Amorphous Sediment Urine Bacteria Blood Type Rho(D) Type Antibody Screen Crossmatch 12/17/19 12/17/19 12/17/19 23:00 21:41 17:25 WBC RBC Hgb Hct MCV MCH MCHC RDW Plt Count MPV Neut % (Auto) Lymph % (Auto) [place] % (Auto) Eos % (Auto) Baso % (Auto) Neut # (Auto) Lymph # (Auto) [place] # (Auto) Eos # (Auto) Baso # (Auto) Nucleated RBC % (a uto) Nucleated RBCs # PT INR APTT Sodium Potassium Chloride Carbon Dioxide Anion Gap BUN Creatinine GFR Calculation Glucose POC Glucose 437 Calculated Osmolal ity Calcium Total Bilirubin AST ALT Alkaline Phosphata se Total Protein Albumin Globulin TSH Urine Color Yellow Urine Appearance Clear Urine pH 5 Ur Specific Gravit y 1.010 Urine Protein Neg Urine Glucose (UA) 4+ H Urine Ketones 1+ H Urine Blood Neg Urine Nitrate Negative Urine Bilirubin Neg Urine Urobilinogen Norm Ur Leukocyte Donita ase Negative Urine RBC 0-4 H Urine WBC 0-4 H Ur Squamous Epith Cells 0-4 H Amorphous Sediment Not Reportable Urine Bacteria Trace Blood Type A Positive Rho(D) Type Positive Antibody Screen Negative Crossmatch See Detail 12/17/19 12/17/19 12/17/19 16:40 16:35 16:35 WBC RBC Hgb Hct MCV MCH MCHC RDW Plt Count MPV Neut % (Auto) Lymph % (Auto) [place] % (Auto) Eos % (Auto) Baso % (Auto) Neut # (Auto) Lymph # (Auto) [place] # (Auto) Eos # (Auto) Baso # (Auto) Nucleated RBC % (a uto) Nucleated RBCs # PT 15.10 H INR 1.15 APTT 25.7 Sodium 129 L Potassium 4.7 Chloride 96 L Carbon Dioxide 22 Anion Gap 15.7 BUN 17 Creatinine 0.9 GFR Calculation 64.8 L Glucose 570 H* POC Glucose Calculated Osmolal ity 291 Calcium 8.8 Total Bilirubin 0.4 AST 35 H ALT 22 Alkaline Phosphata se 112 H Total Protein 6.6 Albumin 4.0 Globulin 2.6 TSH 0.60 Urine Color Urine Appearance Urine pH Ur Specific Gravit y Urine Protein Urine Glucose (UA) Urine Ketones Urine Blood Urine Nitrate Urine Bilirubin Urine Urobilinogen Ur Leukocyte Donita ase Urine RBC Urine WBC Ur Squamous Epith Cells Amorphous Sediment Urine Bacteria Blood Type Rho(D) Type Antibody Screen Crossmatch 12/17/19 16:35 WBC 13.5 H RBC 3.14 L Hgb 6.5 L* Hct 23.3 L MCV 74.2 L MCH 20.7 L MCHC 27.9 L RDW 19.8 H Plt Count 398 MPV 9.5 Neut % (Auto) 81.6 Lymph % (Auto) 10.8 [place] % (Auto) 5.2 Eos % (Auto) 0.7 Baso % (Auto) 1.1 Neut # (Auto) 11.00 H Lymph # (Auto) 1.5 [place] # (Auto) 0.7 Eos # (Auto) 0.1 Baso # (Auto) 0.2 H Nucleated RBC % (a uto) 0 Nucleated RBCs # 0.0 PT INR APTT Sodium Potassium Chloride Carbon Dioxide Anion Gap BUN Creatinine GFR Calculation Glucose POC Glucose Calculated Osmolal ity Calcium Total Bilirubin AST ALT Alkaline Phosphata se Total Protein Albumin Globulin TSH Urine Color Urine Appearance Urine pH Ur Specific Gravit y Urine Protein Urine Glucose (UA) Urine Ketones Urine Blood Urine Nitrate Urine Bilirubin Urine Urobilinogen Ur Leukocyte Donita ase Urine RBC Urine WBC Ur Squamous Epith Cells Amorphous Sediment Urine Bacteria Blood Type Rho(D) Type Antibody Screen Crossmatch Vitals: Last Vital Signs Temp 98.1 F 12/18/19 08:55 Pulse 98 12/18/19 08:55 Resp 13 12/18/19 08:55 BP 137/70 12/18/19 08:55 Pulse Ox 97 12/18/19 08:55 Discharge Plan Discharge Patient Disposition: Home Condition: Stable Prescriptions: New amoxicillin-pot clavulanate 875-125 mg Tablet 1 tab PO BID Qty: 20 RF: 0 Continued hydroxyzine HCl 25 mg tablet 25 mg PO BID PRN (Reason: Anxiety) RF: 0 metoprolol succinate 25 mg tablet extended release 24 hr 12.5 mg PO DAILY RF: 0 clopidogrel [Plavix] 75 mg tablet 75 mg PO DAILY Qty: 90 RF: 1 (DME) lancets [OneTouch Delica Lancets] 33 gauge misc See Rx Instructions .ROUTE .MEDSUPPLY Qty: 100 RF: 0 Levemir FlexTouch U-100 Insuln 100 unit/mL (3 mL) insulin pen 53 unit SUBCUT DAILY Qty: 15 RF: 2 (DME) OneTouch Ultra Blue Test Strip Strip See Rx Instructions .ROUTE .MEDSUPPLY Qty: 200 RF: 0 levothyroxine 112 mcg capsule 112 mcg PO DAILY Qty: 90 RF: 0 pen needle, diabetic [TechLITE Pen Needle] 31 gauge x 5/16 needle See Rx Instructions .ROUTE .COMPLEX Qty: 100 RF: 0 metformin 1,000 mg tablet See Rx Instructions .ROUTE .COMPLEX Qty: 60 RF: 1 liraglutide [Victoza 2-Silas] 0.6 mg/0.1 mL (18 mg/3 mL) pen injector See Rx Instructions .ROUTE .COMPLEX Qty: 6 RF: 0 pantoprazole 40 mg tablet,delayed release (DR/EC) 40 mg PO DAILY Qty: 90 RF: 3 doxepin 75 mg capsule See Rx Instructions .ROUTE .COMPLEX Qty: 60 RF: 0 montelukast 10 mg tablet 10 mg PO DAILY Qty: 90 RF: 0 Januvia 100 mg tablet 100 mg PO DAILY Qty: 30 RF: 0 citalopram 10 mg tablet 10 mg PO DAILY RF: 0 simvastatin 40 mg tablet 40 mg PO DAILY RF: 0 lisinopril 2.5 mg tablet 2.5 mg PO DAILY RF: 0 hydrocodone-acetaminophen [[place]] 5-325 mg tablet 1 tab PO Q6H PRN (Reason: pain) Qty: 25 RF: 0 Discharge Orders: Discharge Order (Routine); Ordered 12/18/19 Ordered By: Vinay Davis Referrals: Artur Nuñez [Primary Care Provider] - 4-7 days Surinder Tierney MD [Physician] - 4-7 days Activity Restrictions/Additional Instructions: Return to the emergency department immediately for any bleeding Do not remove device in the left nares. This will be removed by ENT. Do not take aspirin. Stop the aspirin you were taking. Discharge Attestations Time Spent in Discharge Care*: greater than 30 min Quality Metrics Clinical Quality Measures During this hospital stay, did patient experience: None Coding Level of Care Code Acute Flatwork Folder for Chg Fwd Diagnoses Epistaxis R04.0 Anemia D62 Anemia type: other cause Other causes of anemia: acute posthemorrhagic Hypotension I95.9
--- NOTE | 2019-12-18 09:51 | PC.CHAP ---
Pastoral Care Encounter/Spiritual Assessment Type of Contact [] Declined director clinical research visit [] Patient/Family/Request visit [] Outpatient visit [] Follow-up visit [] Physician referral [] Code/Alert [X] Routine visit [] Staff referral [] Actively dying [] Patient sleeping [] Family support [] [] Out of room [] Palliative care [] [] Receiving care in room [] Pre-surgical visit [] Trauma [] Long length of stay [X] ICU visit [] Other: Relational/Emotional Strength [X] Patient feels connected with others/family/visitors/staff [] Distress [] Loneliness/isolation [] Abandonment Spirituality of Patient [] Person of Mariama [] Attends Buddhist of their Mariama [] Believes in Prayer [] Reads Bible or Buddhism materials [] There are Spiritual issues to be addressed Lean Specialist Interventions [] Prayer [] Active listening [] Non-anxious presence [] Spiritual/emotional support [] Crisis/trauma care [] Spiritual counseling [] Bereavement support [] Provided bereavement packet [] Provided Bible/devotional materials [] Provided toy/stuffed animal, coloring book to patient or family member [] Provided Communion [] Anointing/[place] [] Salvation [] Completed spiritual assessment [] Other: Impact on Illness or Injury [] Angry [] Fearful [] Anxious [] Often cries [] Exhaustion [] Unable to work [] Unable to attend yazdanism [] Unable to walk/stand [] Unable to read [] Unable to drive [] Unable to eat/drink [] Unable to sleep [] Unable to be with family [] Patient intubated [] Other: Summary: Brief visit as she was being discharged to assess the problem, support, any needs, and plan. Her will be coming to pick her up. She is ready and thankful to go home. Denied any immediate needs that I could address. Time spent with patient: <5mins
== END 2019-12-18 11:15 | disposition home or self-care (01) ==
LOC: ER 16:16 → ICU 17:47
PROVIDERS: Emergency Medicine; Admitting Provider Internal Medicine; PCP Physician Assistant Medical; Visit Provider Internal Medicine
DX: R04.0 Epistaxis (principal); D62 Acute posthemorrhagic anemia; I95.9 Hypotension, unspecified; I25.10 Atherosclerotic heart disease of native coronary artery without angina pectoris; Z95.5 Presence of coronary angioplasty implant and graft; E11.9 Type 2 diabetes mellitus without complications; E78.5 Hyperlipidemia, unspecified; I10 Essential (primary) hypertension; E03.9 Hypothyroidism, unspecified; Z79.82 Long term (current) use of aspirin; Z79.02 Long term (current) use of antithrombotics/antiplatelets; Z79.4 Long term (current) use of insulin; K21.9 Gastro-esophageal reflux disease without esophagitis
CPT/HCPCS: 30901; 12345; 36415; 36416; 36430; 80048; 80053; 81001; 82962; 84443; 85025; 85610; 85730; 86850; 86900; 86920; 93005; 96360; 96361; 96372; 99283; 99285; G0378; J1815; J7030; P9016

== ENCOUNTER 2020-03-17 17:16 | Emergency (ER) | payer MEDICAID, SELFPAY ==
[2020-03-17 17:35] VITALS: BP 113/76; PULSE 87; RESP 16; TEMP 36.3; O2SAT 98; BMI 38.7
--- NOTE | 2020-03-17 19:16 | ECG_ITS ---
[facility] Test Date: 2020-03-17 Pat Name: Tonie Fish Department: Room: Gender: Female Floor Runner: : 1965 Requested By: Duane Neff Order Number: [id number] Dannie MD: Chriss Arvizu M.D. Measurements Intervals [place] Rate: 84 P: 19 [place]: 157 QRS: -7 QRSD: 93 T: 66 QT: 362 QTc: 429 Interpretive Statements SINUS RHYTHM WITH SINUS ARRHYTHMIA MODERATE VOLTAGE CRITERIA FOR LVH, CONSIDER NORMAL VARIANT [MEETS CRITERIA IN ONE OF: R(aVL), S(V1), R(V5), R(V5/V6)+S(V1)] INTERPRETATION BASED ON A DEFAULT AGE OF 40 YEARS Compared to ECG 12/17/2019 17:14:01 Sinus tachycardia no longer present T-wave abnormality no longer present Electronically Signed On 03-18-2020 11:20:31 FOREST ECONOMIST by Chriss Arvizu M.D. [email or web address]
--- NOTE | 2020-03-17 19:16 | XRR_ITS ---
PROCEDURE INFORMATION: Exam: XR Chest, 1 View Exam date and time: 03/17/2020 8:11 PM Age: 54 years old Clinical indication: Chest pain TECHNIQUE: Imaging protocol: XR of the chest Views: 1 view. COMPARISON: CR Chest 1 [place] [id number] 03/14/2019 9:35 PM FINDINGS: The lungs are clear of infiltrate. There are no pleural effusions or pneumothorax. The heart size and pulmonary vascularity are normal. XR/XR chest 1V portable [id number] IMPRESSION: No active disease.
--- NOTE | 2020-03-17 20:16 | ED_ITS ---
HPI - Chest Pain General: Chief Complaint: Chest Pain Stated Complaint: chest pain Time Seen by Provider: 03/17/20 20:07 Source: patient Mode of arrival: ambulatory Limitations: no limitations History of Present Illness: HPI narrative: Patient appears well. Patient has a history of a SD about 1 years ago with 1 stent placed. Patient reports that for the last week she has had some intermittent chest discomfort. Patient reports nothing makes it better nothing makes it worse. Patient appears in no distress at this time and denies any chest pain at this time. MD complaint: chest pain Review of Systems General: Reports: 10 or more systems reviewed and unremarkable except in HPI and below Card: Reports: chest pain PFS ED PFSH: Medical History Anemia Improved after transfusion 2 units. Hemoglobin 8.0 on discharge. Anxiety and depression Arthritis Coronary artery disease Had stent 03/2019 Depression Diabetes Hyperlipidemia Hypertension Hypothyroid Surgical History History of nasal cauterization History of total left knee replacement History of total right knee replacement (~11/2017) History of tubal ligation Hx of heart artery stent (~03/2019) Family History Mother Diabetes Brother Diabetes Heart disease Hypercholesteremia Father Heart disease Sister Uterine cancer Social History (Updated 03/17/20 @ 17:39 by Mayank West RN) Smoking and tobacco status: never smoked Quit status (tobacco): has quit using tobacco Year quit tobacco: age 14 Alcohol intake: never Substance/Drug Use: never Marital status: History of recent travel: No Physical Exam Const: COMMON NORMALS: no acute distress and patient oriented x3 GENERAL APPEARANCE: cooperative HENMT: COMMON NORMALS: normocephalic and Normal external nose present HEAD & SCALP: normal to inspection and normocephalic NOSE: Normal external nose present MOUTH: Normal oral and palatal mucosa present Eye: GENERAL EYE: appearance normal, both eyes and all related structures Neck/C-Spine: COMMON NORMALS: full ROM Lymph: LYMPHATIC: no lymphadenopathy noted Chest: COMMONS NORMALS: normal inspection of the chest Resp: COMMON NORMALS: normal respiratory effort EFFORT & INSPECTION: Yes able to speak in complete sentences Cardio: COMMON NORMALS: regular rate and regular rhythm RATE: regular rate RHYTHM: regular rhythm GI: COMMON NORMALS: non-tender Back/Pelvis: COMMON NORMALS: thoracic and lumbar spine normal to inspection Extremity: COMMON NORMALS: normal to inspection Neuro: COMMON NORMALS: patient oriented x3 and moves all extremities Psych: COMMON NORMALS: mental status grossly normal and cooperative Skin: COMMON NORMALS: no rashes or lesions noted GENERAL SKIN EXAM: no rashes or lesions noted Course Vital Signs: Vital signs: Vital Signs Temperature 97.3 F L 03/17/20 17:35 Pulse Rate 87 03/17/20 17:35 Respiratory Rate 16 03/17/20 17:35 Blood Pressure 113/76 03/17/20 17:35 Pulse Oximetry 98 03/17/20 17:35 MDM - Chest Pain MDM Narrative: Medical decision making narrative: Patient comes in today with some intermittent chest pain. Patient was concerned due to a history of an SD 1 year ago. Patient appears well. Patient appears in no pain. On exam abdomen was soft with some right upper quadrant tenderness. Vital signs were normal. Respirations were even lungs were clear to auscultation. Heart rate was regular. Differential diagnosis includes ACS, stable angina, cholelithiasis, b iliary colic. Laboratory values indicated no infection, there was some noticeable elevation in the AST, alk phos, and lipase. I reviewed this with patient recommended may be further evaluation with her gallbladder. Patient reported that she had recently had an ultrasound done of her abdomen which noted no problems with her gallbladder when I defer further testing at this time. I recommended patient follow-up with her country singer for stress test due to the intermittent chest pain. Patient reported understanding agreed to plan. I also discussed need for further evaluation regarding her liver enzymes which patient will follow up with her primary care. Lab Data: Labs: Lab Results 03/17/20 03/17/20 03/17/20 Range/Units 20:30 20:30 20:30 WBC 7.4 (4.0-10.0) 10^3/ uL RBC 5.40 H (4.1-5.3) 10^6/u L Hgb 11.1 L (11.5-15.3) g/dL Hct 38.1 (37.0-47.0) % MCV 70.6 L (81-99) fL MCH 20.6 L (28.0-34.0) pg MCHC 29.1 L (30.0-36.0) g/dL RDW 18.7 H (12.1-15.1) % Plt Count 329 (130-400) 10^3/c mm MPV 9.1 (7.4-10.4) fL Neut % (Auto) 61.3 % Lymph % (Auto) 28.9 % [place] % (Auto) 6.2 % Eos % (Auto) 2.4 % Baso % (Auto) 1.1 % Neut # (Auto) 4.51 (1.8-7.7) 10^3/u L Lymph # (Auto) 2.1 (0.8-4.8) 10^3/u L [place] # (Auto) 0.5 (0.2-0.9) 10^3/u L Eos # (Auto) 0.2 (0.0-0.8) 10^3/u L Baso # (Auto) 0.1 (0.0-0.1) 10^3/u L Nucleated RBC % (a uto) 0 % Nucleated RBCs # 0.0 /100WBC PT 14.20 (12.1-14.9) SECO NDS INR 1.07 (0.8-1.2) D-Dimer 0.28 (0-0.59) ug/mIFE U Sodium 136 (136-145) mmol/L Potassium 3.5 (3.5-5.1) mmol/L Chloride 98 (98-107) mmol/L Carbon Dioxide 28 (22-29) mmol/L Anion Gap 13.5 (5-19) BUN 9 (6-20) mg/dL Creatinine 0.5 (0.5-0.9) mg/dL GFR Calculation 127.6 (90-130) mL/min Glucose 233 H (65-115) mg/dL Calculated Osmolal ity 288 (285-295) mOsm/k g Calcium 9.6 (8.5-10.5) mg/dL Total Bilirubin 0.4 (0.15-1.2) mg/dL AST 45 H (0-32) U/L ALT 33 (0-33) U/L Alkaline Phosphata se 134 H (35-105) IU/L Creatine Kinase 45 (26-192) U/L Troponin T Baselin e (0-10) ng/L NT-Pro-B Natriuret Pep 84 (0-125) pg/mL Total Protein 7.6 (6.6-8.7) g/dL Albumin 4.7 (3.5-5.2) g/dL Globulin 2.9 (1.3-4.6) g/dL Lipase 99 H (13-60) U/L 11/21/20 Range/Units 20:30 WBC (4.0-10.0) 10^3/ uL RBC (4.1-5.3) 10^6/u L Hgb (11.5-15.3) g/dL Hct (37.0-47.0) % MCV (81-99) fL MCH (28.0-34.0) pg MCHC (30.0-36.0) g/dL RDW (12.1-15.1) % Plt Count (130-400) 10^3/c mm MPV (7.4-10.4) fL Neut % (Auto) % Lymph % (Auto) % [place] % (Auto) % Eos % (Auto) % Baso % (Auto) % Neut # (Auto) (1.8-7.7) 10^3/u L Lymph # (Auto) (0.8-4.8) 10^3/u L [place] # (Auto) (0.2-0.9) 10^3/u L Eos # (Auto) (0.0-0.8) 10^3/u L Baso # (Auto) (0.0-0.1) 10^3/u L Nucleated RBC % (a uto) % Nucleated RBCs # /100WBC PT (12.1-14.9) SECO NDS INR (0.8-1.2) D-Dimer (0-0.59) ug/mIFE U Sodium (136-145) mmol/L Potassium (3.5-5.1) mmol/L Chloride (98-107) mmol/L Carbon Dioxide (22-29) mmol/L Anion Gap (5-19) BUN (6-20) mg/dL Creatinine (0.5-0.9) mg/dL GFR Calculation (90-130) mL/min Glucose (65-115) mg/dL Calculated Osmolal ity (285-295) mOsm/k g Calcium (8.5-10.5) mg/dL Total Bilirubin (0.15-1.2) mg/dL AST (0-32) U/L ALT (0-33) U/L Alkaline Phosphata se (35-105) IU/L Creatine Kinase (26-192) U/L Troponin T Baselin e 6 (0-10) ng/L NT-Pro-B Natriuret Pep (0-125) pg/mL Total Protein (6.6-8.7) g/dL Albumin (3.5-5.2) g/dL Globulin (1.3-4.6) g/dL Lipase (13-60) U/L Imaging Data^: CXR: Attestation: I personally reviewed and interpreted this imaging study as follows: (no acute disease, unchanged from previous CXR) EKG Data^: EKG 1: Attestation: I personally reviewed and interpreted this EKG as follows: (reviewed ekg, no ST elevation or ectopy, regular rate at 84 bpm.) Discharge Plan Discharge Patient Disposition: Home Clinical Impression: Atypical chest pain, Elevated liver enzymes Condition: Stable Prescriptions: No Action hydroxyzine HCl 25 mg tablet 25 mg PO BID PRN (Reason: Anxiety) RF: 0 metoprolol succinate 25 mg tablet extended release 24 hr 12.5 mg PO DAILY RF: 0 clopidogrel [Plavix] 75 mg tablet 75 mg PO DAILY Qty: 90 RF: 1 (DME) lancets [OneTouch Delica Lancets] 33 gauge misc See Rx Instructions .ROUTE .MEDSUPPLY Qty: 100 RF: 0 pen needle, diabetic [TechLITE Pen Needle] 31 gauge x 5/16 needle See Rx Instructions .ROUTE .COMPLEX Qty: 100 RF: 0 liraglutide [Victoza 2-Silas] 0.6 mg/0.1 mL (18 mg/3 mL) pen injector See Rx Instructions .ROUTE .COMPLEX Qty: 6 RF: 0 pantoprazole 40 mg tablet,delayed release (DR/EC) 40 mg PO DAILY Qty: 90 RF: 3 metformin 1,000 mg tablet See Rx Instructions .ROUTE .COMPLEX Qty: 60 RF: 0 insulin detemir U-100 [Levemir FlexTouch U-100 Insuln] 100 unit/mL (3 mL) insulin pen See Rx Instructions .ROUTE .COMPLEX Qty: 15 RF: 0 blood sugar diagnostic [OneTouch Ultra Blue Test Strip] Strip See Rx Instructions .ROUTE .COMPLEX Qty: 200 RF: 0 levothyroxine 112 mcg tablet See Rx Instructions .ROUTE .COMPLEX Qty: 90 RF: 0 sitagliptin [Januvia] 100 mg tablet See Rx Instructions .ROUTE .COMPLEX Qty: 15 RF: 0 montelukast 10 mg tablet See Rx Instructions .ROUTE .COMPLEX Qty: 90 RF: 0 citalopram 10 mg tablet 10 mg PO DAILY RF: 0 simvastatin 40 mg tablet 40 mg PO DAILY RF: 0 lisinopril 2.5 mg tablet 2.5 mg PO DAILY RF: 0 hydrocodone-acetaminophen [Tilden] 5-325 mg tablet 1 tab PO Q6H PRN (Reason: pain) Qty: 25 RF: 0 Discharge Orders: Discharge Order (Routine); Ordered 03/17/20 Ordered By: Duane Foster Referrals: Artur Nuñez [Primary Care Provider] - Discharge Diet: Usual diet Discharge Activity: Increase activity as tolerated Patient Instructions: Chest Pain (ED) Activity Restrictions/Additional Instructions: Follow-up with primary care. Follow-up with country singer for further evaluation and treatment. Return to the emergency room for excruciating chest pain or shortness of breath. Return to the emergency room for high fever or blood in vomit or stool. 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
[2020-03-17 20:47] LABS: Basophils # 0.1 10^3/uL (0.0-0.1); Basophils % 1.1 %; Eosinophils # 0.2 10^3/uL (0.0-0.8); Eosinophils % 2.4 %; Hematocrit 38.1 % (37.0-47.0); Hemoglobin 11.1 g/dL (11.5-15.3); Lymphocytes # 2.1 10^3/uL (0.8-4.8); Lymphocytes % 28.9 %; Mean Corpuscular HGB Conc 29.1 g/dL (30.0-36.0); Mean Corpuscular Hemoglobin 20.6 pg (28.0-34.0); Mean Corpuscular Volume 70.6 fL (81-99); Mean Platelet Volume 9.1 fL (7.4-10.4); Monocytes # 0.5 10^3/uL (0.2-0.9); Monocytes % 6.2 %; Neutrophils # 4.51 10^3/uL (1.8-7.7); Neutrophils % 61.3 %; Nucleated Red Blood Cells % 0 %; Platelet Count 329 10^3/cmm (130-400); Red Cell Distribution Width 18.7 % (12.1-15.1); White Blood Count 7.4 10^3/uL (4.0-10.0)
[2020-03-17 21:17] LABS: INR 1.07 (0.8-1.2)
[2020-03-17 21:20] LABS: D Dimer 0.28 ug/mIFEU (0-0.59)
[2020-03-17 21:29] LABS: Troponin(5th) Baseline 6 ng/L (0-10)
[2020-03-17 21:37] LABS: Alanine Aminotransferase 33 U/L (0-33); Albumin Level 4.7 g/dL (3.5-5.2); Alkaline Phosphatase 134 IU/L (35-105); Anion Gap 13.5 (5-19); Aspartate Amino Transferase 45 U/L (0-32); Blood Urea Nitrogen 9 mg/dL (6-20); Calcium 9.6 mg/dL (8.5-10.5); Carbon Dioxide 28 mmol/L (22-29); Chloride 98 mmol/L (98-107); Creatine Phosphokinase 45 U/L (26-192); Globulin 2.9 g/dL (1.3-4.6); Glomerular Filtration Rate 127.6 mL/min (90-130); Glucose 233 mg/dL (65-115); Lipase 99 U/L (13-60); NT Pro B Type Natriuretic Pept 84 pg/mL (0-125); Osmolality Calculated 288 mOsm/kg (285-295); Potassium 3.5 mmol/L (3.5-5.1); Sodium 136 mmol/L (136-145); Total Bilirubin 0.4 mg/dL (0.15-1.2); Total Protein 7.6 g/dL (6.6-8.7)
[2020-03-17 22:01] VITALS: BP 131/80; PULSE 85; RESP 18; O2SAT 96
--- NOTE | 2020-03-18 01:02 | ECG_ITS ---
[facility] Test Date: 2020-03-17 Pat Name: Tonie Fish Department: Room: Gender: Female Consulting Solution Director: : 1965 Requested By: Duane Neff Order Number: [id number] Dannie MD: Chriss Arvizu M.D. Measurements Intervals [place] Rate: 84 P: 19 KS: 157 QRS: -7 QRSD: 93 T: 66 QT: 362 QTc: 429 Interpretive Statements SINUS RHYTHM WITH SINUS ARRHYTHMIA MODERATE VOLTAGE CRITERIA FOR LVH, CONSIDER NORMAL VARIANT [MEETS CRITERIA IN ONE OF: R(aVL), S(V1), R(V5), R(V5/V6)+S(V1)] Compared to ECG 12/17/2019 17:14:01 Sinus tachycardia no longer present T-wave abnormality no longer present Electronically Signed On 03-18-2020 11:20:56 FUND ACCOUNTING MANAGER by Chriss Arvizu M.D. [email or web address] RoutePublicRelayuniversity [facility].[employer]/store/[id number] f
== END 2020-03-17 22:02 | disposition home or self-care (01) ==
PROVIDERS: Emergency Provider Nurse Practitioner Family; PCP Physician Assistant Medical
DX: R07.89 Other chest pain (principal); R74.8 Abnormal levels of other serum enzymes; Z79.02 Long term (current) use of antithrombotics/antiplatelets; Z79.4 Long term (current) use of insulin; I25.10 Atherosclerotic heart disease of native coronary artery without angina pectoris; E11.9 Type 2 diabetes mellitus without complications; E78.5 Hyperlipidemia, unspecified; I10 Essential (primary) hypertension; Z87.891 Personal history of nicotine dependence
CPT/HCPCS: 12345; 71045; 80053; 82550; 83690; 83880; 84484; 85025; 85378; 85610; 93005; 99282; 99283

== ENCOUNTER → 2020-05-09 14:27 | Outpatient (BNVA) | payer MEDICAID, SELFPAY | PROVIDERS: PCP Physician Assistant Medical; Visit Provider Surgery | DX: Z12.11 Encounter for screening for malignant neoplasm of colon (principal) | CPT/HCPCS: 87635 ==

== ENCOUNTER 2020-05-15 09:34 | Day surgery (SDC) | payer MEDICAID, SELFPAY ==
[2020-05-14 09:42] VITALS: BMI 38.2
[2020-05-15 10:14] VITALS: BP 143/94; PULSE 97; RESP 18; TEMP 36.3; O2SAT 97
[2020-05-15 10:29] LABS: Glucose Point of Care 276 mg/dL (70-110)
[2020-05-15] MEDS: sodium chloride 0.9% 1,000 ML 30 ML IV (10:31)
[2020-05-15] MEDS: insulin regular-human 100 units/1 mL 10 UNIT IVP (10:40)
--- NOTE | 2020-05-15 11:03 | ANES.PREANE2 ---
Pre-Anesthetic Assessment Pre-Anesthetic Assessment: Height/Weight: Height 1.57 m Weight 94.801 kg Temp Pulse Resp BP Pulse Ox 97.3 F L 97 18 143/94 97 05/15/20 10:14 05/15/20 10:14 05/15/20 10:14 05/15/20 10:14 05/15/20 10:14 Preop Diagnosis: screening colonoscopy Proposed Procedure: Operation Date: 05/15/20 11:00 Proposed Procedures p Colonoscopy 20069 R10.31(Not Applicable) - Pasha Diaz MD Familial anesthetic complications: None Was Beta Lb taken within 24 hours: Yes Last intake: Intake Last Liquid Date 05/14/20 Last Liquid Time 23:30 Last Solid Date 05/13/20 Last Solid Time 22:00 Social: Social History: No alcohol and No tobacco Exam: Pre-Anes Outpt Exam: alert, oriented x 3, clear to auscultation bilaterally and regular rate & rhythm Airway: Cervical ROM: WNL MP: 3 Dentition: Other (no teeth) CV/HEM: CV/HEM: CAD (stent > 1 yr ago (holding plavix since thursday, approved by talent acquisition administrator, per patient)) and HTN GI: GI: GERD Metabolic: Metabolic: DM, Hyperlipidemia, Morbid obesity and Thyroid Anesthetic Plan: ASA status: 3 Anesthesia: MAC Risk of > 500 ml blood loss (7ml/kg in children): No Meds/Allergies Current Medications: Current Medications Generic Name Dose Route Start Last Admin Trade Name Freq PRN Reason Stop Dose Admin Sodium Chloride 1,000 mls @ 30 ml s/hr 05/15/20 09:45 05/15/20 10:31 Sodium Chloride 0.9% IV 05/16/20 09:44 30 mls/hr .Q24H JESSI Administration PFSH Anesthesia PFSH: Medical History (Updated 05/12/20 @ 15:09 by Ernie Celis MD) Anemia Improved after transfusion 2 units. Hemoglobin 8.0 on discharge. Anxiety and depression Arthritis Coronary artery disease Had stent 03/2019 Depression Diabetes Hyperlipidemia Hypertension Hypothyroid Surgical History History of nasal cauterization History of total left knee replacement History of total right knee replacement (~11/2017) History of tubal ligation Hx of heart artery stent (~03/2019) Family History Mother Diabetes Brother Diabetes Heart disease Hypercholesteremia Father Heart disease Sister Uterine cancer Social History Smoking and tobacco status: never smoked Quit status (tobacco): has quit using tobacco Year quit tobacco: age 14 Alcohol intake: never Marital status: History of recent travel: No Data Anesthesia Other Labs: Laboratory Results - last 48 hr 05/15/20 10:27 POC Glucose 276 H Cardiac Studies: No Data to Display
[2020-05-15 11:05] LABS: Glucose Point of Care 239 mg/dL (70-110)
--- NOTE | 2020-05-15 13:16 | W.PM.OPSFHP ---
Same Day Surgery H&P Indication for Procedure/HPI DATE OF PROCEDURE: May 15, 2020 CHIEF COMPLAINT/INDICATIONFOR SURGICAL PROCEDURE: colonoscopy PREOP DIAGNOSIS: screening colonoscopy PLANNED PROCEDRUE: Operation Date: 05/15/20 11:00 Proposed Procedures p Colonoscopy 60418 R10.31(Not Applicable) - Pasha Diaz MD Medications/Allergies* Home Medications Medication Instructions Recorded Confirmed Type hydroxyzine HCl 25 mg tablet 25 mg PO BID PRN 05/05/19 05/15/20 History metoprolol succinate 25 mg 12.5 mg PO DAILY tab 05/05/19 05/15/20 History tablet,extended release 24 hr citalopram 10 mg PO DAILY 10/05/19 05/15/20 History lisinopril 2.5 mg PO DAILY 10/05/19 05/15/20 History simvastatin 40 mg PO DAILY 10/05/19 05/15/20 History liraglutide 0.6 mg/0.1 mL (18 mg/3 1.8 mg SUBCUT BID ml 05/08/20 05/15/20 History mL) subcutaneous pen injector Januvia 100 mg PO DAILY 05/15/20 05/15/20 History montelukast 10 mg PO DAILY 05/15/20 05/15/20 History Allergies/Adverse Reactions Allergy/AdvReac Type Severity Reaction Status Date / Time No Known Allergies Allergy Verified 05/14/20 09:34 Current Medications: Generic Name Dose Route Start Last Admin Trade Name Freq PRN Reason Stop Dose Admin Sodium Chloride 1,000 mls @ 30 mls/hr 05/15/20 09:45 05/15/20 10:31 Sodium Chloride 0.9% IV 05/16/20 09:44 30 mls/hr .Q24H JESSI Administration Pertinent History/Comorbid Conditions* Medical History (Updated 05/12/20 @ 15:09 by Ernie Celis MD) Anemia Improved after transfusion 2 units. Hemoglobin 8.0 on discharge. Anxiety and depression Arthritis Coronary artery disease Had stent 03/2019 Depression Diabetes Hyperlipidemia Hypertension Hypothyroid Surgical History (Updated 12/17/19 @ 17:39 by Vinay aDvis MD) History of nasal cauterization History of total left knee replacement History of total right knee replacement (~11/2017) History of tubal ligation Hx of heart artery stent (~03/2019) Family History (Updated 06/17/19 @ 13:41 by Karena Alaniz LPN) Diabetes Mother Brother Heart disease Brother Father Hypercholesteremia Brother Uterine cancer Sister Social History Smoking and tobacco status: never smoked Quit status (tobacco): has quit using tobacco Year quit tobacco: age 14 Alcohol intake: never Marital status: History of recent travel: No Pertinent Exam Findings alert, oriented x 3 and regular rate & rhythm Recommendations Surgery/Procedure today Coding Level of Care Code Acute 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
[2020-05-15 13:46] VITALS: BP 104/66; PULSE 96; RESP 18; TEMP 36.6; O2SAT 93
[2020-05-15 13:57] VITALS: BP 104/66; PULSE 96; RESP 16; O2SAT 96
--- NOTE | 2020-05-15 14:17 | ANE.PACU2 ---
Inpatient post-anesthesia follow up: Airway intact: Yes Vital signs: Temperature 97.8 F Pulse Rate 96 Respiratory Rate 16 Blood Pressure 104/66 Pulse Oximetry 96 Oxygen Delivery Me thod Room Air Oxygen Flow Rate Fraction of Inspir ed Oxygen Hydration adequate: Yes Nausea and vomiting: No Pain level: 2 Mental status: Baseline
== END 2020-05-15 14:08 | disposition home or self-care (01) ==
PROVIDERS: PCP Physician Assistant Medical; Visit Provider Surgery
PROC: 0DJD8ZZ Inspection of Lower Intestinal Tract, Via Natural or Artificial Opening Endoscopic (ICD-10-PCS; CPT 45378; principal; 2020-05-15 11:00)
DX: Z12.11 Encounter for screening for malignant neoplasm of colon (principal); M19.90 Unspecified osteoarthritis, unspecified site; I25.10 Atherosclerotic heart disease of native coronary artery without angina pectoris; Z95.5 Presence of coronary angioplasty implant and graft; E78.5 Hyperlipidemia, unspecified; E11.9 Type 2 diabetes mellitus without complications; I10 Essential (primary) hypertension; E03.9 Hypothyroidism, unspecified; F41.9 Anxiety disorder, unspecified; F32.9 Major depressive disorder, single episode, unspecified; E66.01 Morbid (severe) obesity due to excess calories; Z68.38 Body mass index [BMI] 38.0-38.9, adult
CPT/HCPCS: 12345; 36416; 45378; 82962; 96374; J1815; J2704; J7030

== ENCOUNTER → 2020-05-23 12:18 | Outpatient (BNVA) | payer MEDICAID, SELFPAY | PROVIDERS: PCP Physician Assistant Medical; Referring Provider Physician Assistant Medical; Visit Provider Specialist | DX: Z96.653 Presence of artificial knee joint, bilateral (principal) | CPT/HCPCS: 73560; 73565 ==

== ENCOUNTER 2020-12-04 06:42 | Outpatient (CLI) | payer MEDICAID, SELFPAY ==
[2020-12-04 07:26] VITALS: BMI 38.2
--- NOTE | 2020-12-04 07:31 | ECG_ITS ---
[facility] Test Date: 2020-12-04 Pat Name: Tonie Fish Department: Room: Gender: Female Senior It Security Analyst: : 1965 Requested By: Rachel Celis Order Number: [id number] Dannie MD: RACHEL CELIS Interpretive Statements NAME OF STUDY: EXERCISE SESTAMIBI STRESS TEST INDICATION: Chest Pain, EXERCISE DATA: The patient was exercised by Mick protocol. Baseline heart rate was 129 beats per minute. Baseline blood pressure was 127/55 millimeters of mercury. Target heart rate was 163 beats per minute. Maximum heart rate achieved was 142, which was 87 % of the target heart rate. Maximum blood pressure was 149/78 millimeters of mercury. Total exercise time was 4 minutes. Maximum METs achieved was 4.6, maximum VO2 was 16.1. The reason for ending the test was maximum effort achieved. The patient complained of shortness of breath during the stress test, which then resolved at the end of the test. ELECTROCARDIOGRAM: BASELINE: Sinus tachycardia, normal axis, no significant ST-T changes at the baseline noted. EXERCISE: At the peak exercise level, no significant ST-T changes suggestive of ischemia noted. CONCLUSION: 1. Exercise capacity poor. 2. Heart rate response was tachycardia. 3. Blood pressure response was appropriate. 4. Symptoms not suggestive of ischemia. 5. Electrocardiogram portion of the stress test was not suggestive of ischemia. 6. Nuclear scan will be documented separately. Electronically Signed On 12-04-2020 17:52:07 CDT by RACHEL CELIS [email or web address]Multi Service Corporationselect [email or web address].[email or web address]/store/[id number]
--- NOTE | 2020-12-04 07:32 | NMCV_ITS ---
NM ness perf SPECT r/s* [id number] Tonie Fish Age: 55 Gender: F : 1965 Exam Date: 12/04/2020 08:25 Ordering Phys: Ernie Celis MD ([email or web address]) Technologist: MONTY Hansen Exam Location: [facility] Indications: CHEST PAIN STRESS TEST Please see separate stress test report in [facility] for full findings IMAGE PROTOCOL Rest/Stress 1 Exercise Day Radiopharmaceutical Dose (mCi) Administration Site Administered by Rest: Tc-99m 10.8 IV MONTY Dean Sestamibi Stress:Tc-99m 32.6 IV MONTY Dean Sestamibi Rest: 04-Dec-2020 60 Discovery 630 Stress: 04-Dec-2020 15 Discovery 630 Radiopharmaceutical was injected at 85 % maximum heart rate. Images obtained in supine and prone position. SPECT RESULTS Technical Quality: Excellent Raw Data Analysis: Normal, Breast attenuation Image Corrections: No attenuation or motion correction applied Summed Stress Score: 4 Summed Rest Score: 6 Summed Difference Score: 0 PERFUSION FINDINGS Medium-sized area of moderate to severe reversibility noted in the mid anterior and anterolateral quigley suggestive of possible lesion in LAD territory. Medium-sized area of fixed perfusion defect noted in apical region of apical portion of left ventricle suggestive of old myocardial infarction versus scarring FUNCTIONAL RESULTS (calculated via Gated SPECT) Stress Image LV EF (%): 72 Stress EDV (mL):78 TID: 0.71 Stress ESV (mL):22 Rest Image LV EF (%): 72 FUNCTIONAL FINDINGS: Mid to distal anterior and lateral wall hypokinesis IMPRESSIONS Medium-sized area of moderate to severe reversibility suggestive of ischemia noted in LAD/diagonal territory. EKG segment will be documented separately. Ernie Celis MD (Electronically Signed) Final Date: 05 December 2020 18:03 S
[2020-12-04 09:30] VITALS: BP 112/77; PULSE 105
== END 2020-12-04 06:43 | disposition home or self-care (01) ==
LOC: CDL 06:45
PROVIDERS: PCP Physician Assistant Medical; Visit Provider Internal Medicine Cardiovascular Disease
DX: R07.9 Chest pain, unspecified (principal); R06.02 Shortness of breath; R00.0 Tachycardia, unspecified
CPT/HCPCS: 78452; 93017; A9500

== ENCOUNTER → 2020-12-13 10:30 | Outpatient (BNVA) | payer MEDICAID, SELFPAY | PROVIDERS: PCP Physician Assistant Medical; Referring Provider Internal Medicine Cardiovascular Disease; Visit Provider Internal Medicine Cardiovascular Disease | DX: Z01.818 Encounter for other preprocedural examination (principal); I25.10 Atherosclerotic heart disease of native coronary artery without angina pectoris; Z20.822 Contact with and (suspected) exposure to COVID-19 | CPT/HCPCS: 80048; 85025; 85610; 87635 ==

== ENCOUNTER 2020-12-19 12:47 | Observation (INO) | payer MEDICAID, SELFPAY ==
[2020-12-19] VITALS (37 sets, daily range): BP systolic 81–146; BP diastolic 59–96; PULSE 94–111; RESP 13–27; TEMP 36.8–37.5; O2SAT 94–98; BMI 38.5
--- NOTE | 2020-12-19 07:30 | XACV_ITS ---
Ht: 157 cm Wt: 96 kg BSA: 2.10 m2 Gender: Female : 1965 Any Known Allergies: No known allergies Exam Priority: Routine Indication(s): - Abnormal adenosine stress study Procedure(s): Procedure Description: Diagnostic procedure Procedure Description: PCI procedure Procedure Description: Drug Eluting Coronary Stent Procedure Description: Miscellaneous Procedure Description: Perclose Procedure Description: ACT Procedure Description: Coronary Angiography Procedure Description: Pressure Wire Diagnostic Cath Status: Elective Diagnostic Findings * Left Main has no disease. * Circumflex has no disease. * Mid Left Anterior Descending: significant 80% stenosis, CHER: 3 flow. * Proximal Right Coronary Artery: obstructive 70% stenosis, CHER: 3 flow. * Mid Right Coronary Artery: obstructive 60% stenosis, CHER: 3 flow. * Mid Right Coronary Artery to Distal Right Coronary Artery: obstructive 70% stenosis, CHER: 3 flow. * Coronary angiography shows left dominance. PCI Status: Elective Interventional Findings * Mid Left Anterior Descendin% stenosis treated with a MDT R VIKTOR 2.75X15 SONYA, and MDT KIERSTEN EUPHORA RX [id number] BALLOON. 0% residual stenosis, CHER: 3 flow. Conclusions 1. There is significant coronary artery disease with two vessel disease. 2. Patient has prior CABG. 3. Mid Left Anterior Descending was treated with a Drug Eluting Stent, and Balloon. 4. Mid LAD lesion at the distal end of prior placed stent appeared to be hazy and significantly stenotic, it was treated with overlapping drug-eluting stent postdilated with noncompliant balloon with excellent angiographic result and CHER-3 flow. 5. RCA is codominant but moderate size and caliber vessel, it has multiple moderate proximal mid and distal 6. lesions. FFR was performed which appeared to be not significant at 0.85. We opted for medical management for the RCA 7. . 8. FFR: After equalizing the distal and proximal pressure of FFR wire proximal to the lesion, 9. Distal RCA 10. lesion was crossed with FFR wire. IV adenosine at rate of 140 mcg/min was started. Patient did not compliant of any symptoms, at then end of two minutes FFR was recorded as 0.85, which is not significant. Recommendations * 1-Return to inpatient for close monitoring and routine cath care 2-Risk factor modification for secondary prevention 3-Statin and aspirin 81 mg life--long, if tolerated 4-Continue Plavix 75mg p.o. daily for at least one year. We will assess at the end of one year again to continue if further or not 5-Continue optimal medical management 6-Follow up with Dr. Celis in four weeks and your primary care in 10 days. Diagnostic RX Recommendation: PCI w/o planned CABG Pressures Phase:Rest AO : / ( -2 ) @ 8:28:00 AM 109 / 68 ( 87 ) @ 9:31:00 AM 124 / 68 ( 92 ) @ 9:58:00 AM Clinical Evaluation EBL: 5mL-10mL Procedural Details Procedure Consent Obtained. Admit Source: Out Patient. Current Diagnosis : Chest Pain. Pre-Procedure Time Out. Identified patient by full name and date of as verbalized by the patient/guarantor. Does the consent match the physician's order: Yes. Accurate & Complete Informed Consent: Yes. Inpatient/Outpatient History & Physical on Chart: Yes. If H&P is completed, is and addenduem needed: No; If yes, is the addendum complete: N/A. Visualize and Verify Site with Patient/Guarantor: N/A. Relevant Radiology Images available: N/A. The risks, benefits, and alternatives of sedation and/or procedure were discussed by physician. The patient agrees to continue. Procedure started. [facility] Clinical Fraility Score: 3: Managing Well. Landfill Attendant Indications: Worsening Angina. Chest Pain Symptom Assessment: Typical Angina Symptoms. Cardiovascular Instability: No. Correct patient, site and procedure confirmed by cath team. Current diagnosis: Chest Pain, Abnormal Stress Test. PERRLA. Strong, equal hand armoured car escort bilaterally. Lungs clear x 5 lobes. IV Site on Arrival: 20 gauge in the right anticubital. IV Fluids: 0.9% NaCl at KVO. 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 Pre Procedural Pulses: bilateral radial was 2+. Pre Procedural Pulses: bilateral posterior tibial was 2+. Pre Procedural Pulses: bilateral posterior tibial was 2+. Oxygen started at 2liters/min via nasal canula. bilateral groins was prepped with chloroprep then draped in the usual sterile fashion. Physician notified. Baseline sample Acquired. HR: 93 BPM. Equipment: 5F - Femoral. Equipment: 6F - Femoral. Heparinized Saline (2 units/mL), 1000 mL bag. Kit, Micropuncture. Cardiac Cath Pack. ACIST Manifold Kit Model BT 2000. Physician arrived. Physician scrubbed in. Immediate Pre-Procedure Time Out. Correct Patient: Yes; Correct Procedure: Yes; Correct Site: Yes; Correct Patient Position: Yes; Correct Supplies: Yes; Dried Flammable Prep: Yes; Blood Products Available: N/A;. Lidocaine 1% infiltrated to the right groin. Venous access obtained with micropuncture set. Using Ultrasound to obtain femoral arterial access. Aborting right femoral access. MD attempting to gain access in the left fermoral artery. Lidocaine 1% infiltrated to the left groin. Arterial access obtained with micropuncture set. A CRD 5F JL4 Diagnostic Catheter was advanced over the wire and used for Left coronary angiography. Multiple views taken of left coronary artery. Catheter removed over the exchange wire. A CRD 5F JR4 Diagnostic Catheter was advanced over the wire and used for Right coronary angiography. Multiple views taken of right coronary artery. Catheter removed over the exchange wire. Starting Intervention. Inventory is CRD 6FR XB 3 GUIDE. Inventory: [place] XT wire, Endoflator, Copilot. 6 new zealander XB 3 guide catheter was inserted over the wire. [place] guidewire was advanced through the guide catheter to lesion in the mid LAD. Guidewire advanced across lesion. Inflation Number : 1 A KAREN Cabrera VIKTOR 2.75X15 SONYA -Lot Number# [id number] was prepped and advanced across the Mid LAD. The stent was deployed at 12 AVERY for 0:21 seconds. EXP 08/20/2023. Inflation number: 2 The stent balloon was then re-inflated across the Mid LAD to 12 AVERY for 0:12 seconds. Stent balloon out over the wire. Angiography performed. Inflation number : 3 A MDT KIERSTEN EUPHORA RX [id number] BALLOON was prepped and advanced across the Mid LAD , then inflated to 14 AVERY for 0:12 seconds. Angiography performed. Balloon out. Wire out. Angiography performed. Guide catheter removed over the wire. Inventory is CRD 6FR JR 4 GUIDE 100cm. 6 new zealander JR 4 guide catheter was inserted over the wire. Guide seated in the RCA. ACT drawn. Results 234 seconds. Therapeutic limits - pre-heparin administration 90-150 seconds and monitoring heparin during a vascular procedure >250 seconds. Angiography performed. [place] guidewire was advanced through the guide catheter to lesion in the distal LAD. FFR guidewire was advanced through the guide catheter to lesion in the prox RCA. FFR wire advanced across the lesion. An FFR value of 0.85 was obtained for a lesion located at Prox RCA. FFR wire removed. Angiography performed. Guide catheter pulled back to the bifurcation. Right Iliac agiography performed at 10 ml/sec for a total of 20 ml. Physician review of films. Guide catheter removed over the wire. A Left femoral angiogram was performed to determine safe placement of closure device. Lidocaine 1% infiltrated to the left groin. A Suture was successful obtaining hemostatsis at the Left Femoral artery insertion site. 6 FR sheath reinserted into the left femoral access site. Left arterial and right venous sheath(s) sutured into position with 2-0 silk and sterile 4x4's and Op-site applied over the site. No oozing or signs and symptoms of hematoma noted. Arterial sheath flushed and connected to tranducer and pressure bag with heparinized saline. Venous sheath flushed and connected to 0.9% NaCl with extension tubing. Post Procedure: Pulses reassessed and unchanged. PERRLA. Strong, equal hand armoured car escort bilaterally. No VTE prophylaxis required. Medication's Wasted: Lidocaine 1% = 15 ml. Medication's Wasted: Heparin = 3000 units. Medication's Wasted: Adenosine = 61.6 mg. Total IV fluids: 229 mL. Fluoro: 12:07. Contrast type used: Omnipaque 300 mgI/mL, 500 mL bottle. Omnipaque 258 ml. Post-op diagnosis: Severe LAD disease, Moderate RCA stenosis. Complications: None. Estimated blood loss: 5mL-10mL. Procedure completed. Patient transferred by bed to CPRU. A Suture was successful obtaining hemostatsis at the Right Femoral vein insertion site. Vital chart was stopped. Access Site Site: Right Femoral vein Sheath Size: 6 Fr Hemostasis Method: Suture Hemostasis Success: Successful Site: Left Femoral artery Sheath Size: 6 Fr Hemostasis Method: Suture Hemostasis Success: Successful Procedure Medications Start: 9:18 AM Stop: 9:18 AM Medication: Versed Amount: 1 mg Route: I.V. Start: 9:18 AM Stop: 9:18 AM Medication: Fentanyl Amount: 50 mcg Route: I.V. Start: 9:20 AM Stop: 9:20 AM Medication: Versed Amount: 1 mg Route: I.V. Start: 9:24 AM Stop: 9:24 AM Medication: Versed Amount: 1 mg Route: I.V. Start: 9:28 AM Stop: 9:28 AM Medication: Versed Amount: 1 mg Route: I.V. Start: 9:41 AM Stop: 9:41 AM Medication: Versed Amount: 1 mg Route: I.V. Start: 9:41 AM Stop: 9: AM Medication: Fentanyl Amount: 25 mcg Route: I.V. Start: 9:54 AM Stop: 9:54 AM Medication: Versed Amount: 1 mg Route: I.V. Start: 10:27 AM Stop: 10:27 AM Medication: Heparin Amount: 8000 units Route: I.V. Start: 10:33 AM Stop: 10:33 AM Medication: Versed Amount: 1 mg Route: I.V. Start: 10:33 AM Stop: 10:33 AM Medication: Fentanyl Amount: 25 mcg Route: I.V. Start: 10:45 AM Stop: 10:45 AM Medication: Heparin Amount: 2000 units Route: I.V. Start: 10:52 AM Stop: 10:52 AM Medication: Adenosine (Adenocard) Amount: 806 ml/hr Route: I.V. bolus Start: 11:00 AM Stop: 11:00 AM Medication: Versed Amount: 1 mg Route: I.V. Start: 10:54 AM Stop: 10:54 AM Medication: Adenosine (Adenocard) Route: I.V. bolus Start: 10:12 AM Stop: 10:12 AM Medication: Versed Amount: 1 mg Route: I.V. I, the attending physician, have reviewed and verified all procedure medications. Yes, all medications given per verbal order History/Risk Factors Hypertension: Yes Dyslipidemia: Yes Peripheral Arterial Disease (PAD): No Myocardial Infarction (FL): No Obesity: Yes Renal Disease: No Tobacco Use: Former Prior Interventions PCI: Yes CABG: Yes Valve Surgery: No Date of PCI: 03/15/2019 Report Signatures Finalized by Ernie Celis MD on 12/30/2020 01:36 PM
[2020-12-19] MEDS: diphenhydrAMINE 50 mg Capsule PO (08:32)
--- NOTE | 2020-12-19 09:09 | W.PM.OPSFHP ---
Same Day Surgery H&P Indication for Procedure/HPI DATE OF PROCEDURE: December 19, 2020 CHIEF COMPLAINT/INDICATIONFOR SURGICAL PROCEDURE: Worsening of chest pain along with shortness of breath and positive stress test PREOP DIAGNOSIS: Worsening of shortness of breath chest pain/abnormal stress test PLANNED PROCEDRUE: Operation Date: 12/19/20 08:30 Proposed Procedures p Cardiac Catheterization 53241 R94.39(Left) - Ernie Celis MD 55-year-old female past medical history significant for hypertension hyperlipidemia diabetes mellitus stent placement in 2019 had been to emergency room for worsening of chest pain shortness of breath going on for the last few weeks. Patient underwent stress test in November of this year which is few days ago. She was noted to have ischemia in the territory of LAD on the basis of nuclear scanning. Given her symptoms and abnormal stress test today she is here for left heart cath. I have examined the patient and explained her all risk benefit and alternative for the procedure. She understand the risk for stroke urgent emergent vascular or bypass surgery, she understand the risk for transfusion bleeding sedation contrast-induced nephropathy hematoma vascular injury and infection. She would like to proceed with it. She takes clopidogrel on daily basis. She denies any bleeding disorder. Medications/Allergies* Home Medications Medication Instructions Recorded Confirmed Type metoprolol succinate 25 mg 12.5 mg PO DAILY tab 05/05/19 12/18/20 History tablet,extended release 24 hr citalopram 10 mg PO DAILY 10/05/19 12/18/20 History simvastatin 40 mg PO DAILY 10/05/19 12/18/20 History liraglutide 0.6 mg/0.1 mL (18 mg/3 1.8 mg SUBCUT BID ml 05/08/20 11/05/20 History mL) subcutaneous pen injector montelukast 10 mg PO DAILY 05/15/20 12/18/20 History Allergies/Adverse Reactions Allergy/AdvReac Type Severity Reaction Status Date / Time No Known Allergies Allergy Verified 12/18/20 14:11 Current Medications: Generic Name Dose Route Start Last Admin Trade Name Freq PRN Reason Stop Dose Admin Sodium Chloride 1,000 mls @ 50 mls/hr 12/19/20 07:30 12/19/20 08:31 Sodium Chloride 0.9% IV 12/20/20 03:29 Not Given .Q20H ONE Pertinent History/Comorbid Conditions* Medical History (Updated 11/09/20 @ 20:35 by Ernie Celis MD) Anemia Improved after transfusion 2 units. Hemoglobin 8.0 on discharge. Anxiety and depression Arthritis Coronary artery disease Had stent 03/2019 Depression Diabetes Hyperlipidemia Hypertension Hypothyroid Surgical History (Updated 05/15/20 @ 13:45 by Pasha Diaz MD) H/O colonoscopy (05/15/20) History of nasal cauterization History of total left knee replacement History of total right knee replacement (~11/2017) History of tubal ligation Hx of heart artery stent (~03/2019) Family History (Updated 06/17/19 @ 13:41 by Karena Alaniz LPN) Diabetes Mother Brother Heart disease Brother Father Hypercholesteremia Brother Uterine cancer Sister Social History Smoking and tobacco status: never smoked Quit status (tobacco): has quit using tobacco Year quit tobacco: age 14 Alcohol intake: never Marital status: History of recent travel: No Pertinent Exam Findings alert, oriented x 3 and clear to auscultation bilaterally Conscious Sedation Assessment PATIENT ASSESSED PRIOR TO SEDATION, WITH NO CHANGE NOTED: Yes AIRWAY EVAL/ANESTHESIA PLAN: ASA II, Risks, benefits & alternatives of sedation and/or procedure discussed and Patient agrees to continue as planned Recommendations Surgery/Procedure today Coding Level of Care Code Acute Appraiser [employer] for Benigno Raymond
--- NOTE | 2020-12-19 17:30 | PC.NURSE ---
sheaths removed from groins after speaking with Dr rodriguez about PTT of 53.0 instructions to pull both
--- NOTE | 2020-12-19 19:33 | PC.NURSE ---
Shift Note Frequent safety and comfort rounds continue. Orders and/or nursing care completed as indicated. Patient monitored for response to intervention and treatment(s). Education provided includes post angiogram. Patient and/or inbound customer service representative verbalized understanding. Will continue to monitor.
[2020-12-19] MEDS: atorvastatin 40 mg Tablet 20 MG PO (21:23)
[2020-12-19] MEDS: clopidogrel 75 mg Tablet PO (21:23)
[2020-12-20 04:03] VITALS: BP 127/73; PULSE 97; RESP 18; TEMP 36.8; O2SAT 96
[2020-12-20 05:00] LABS: Basophils # 0.1 10^3/uL (0.0-0.1); Basophils % 0.9 %; Eosinophils # 0.1 10^3/uL (0.0-0.8); Eosinophils % 2.4 %; Hematocrit 31.6 % (37.0-47.0); Hemoglobin 9.5 g/dL (11.5-15.3); Lymphocytes # 1.6 10^3/uL (0.8-4.8); Lymphocytes % 27.9 %; Mean Corpuscular HGB Conc 30.1 g/dL (30.0-36.0); Mean Corpuscular Hemoglobin 23.8 pg (28.0-34.0); Mean Corpuscular Volume 79.2 fl (81-99); Mean Platelet Volume 9.4 fL (7.4-10.4); Monocytes # 0.5 10^3/uL (0.2-0.9); Monocytes % 7.8 %; Neutrophils # 3.53 10^3/uL (1.8-7.7); Neutrophils % 60.8 %; Nucleated Red Blood Cells % 0 %; Platelet Count 294 10^3/cmm (130-400); Red Blood Count 3.99 10^6/uL (4.1-5.3); Red Cell Distribution Width 14.6 % (12.1-15.1); White Blood Count 5.8 10^3/uL (4.0-10.0)
[2020-12-20 05:13] LABS: Anion Gap 14.2 (5-19); Blood Urea Nitrogen 11 mg/dL (6-20); Calcium 8.8 mg/dL (8.5-10.5); Carbon Dioxide 25 mmol/L (22-29); Chloride 103 mmol/L (98-107); Glomerular Filtration Rate 86.2 mL/min (90-130); Glucose 237 mg/dL (65-115); Osmolality Calculated 293 mOsm/kg (285-295); Potassium 4.2 mmol/L (3.5-5.1); Sodium 138 mmol/L (136-145)
[2020-12-20 05:42] VITALS: PULSE 90
--- NOTE | 2020-12-20 07:55 | PM.DCS ---
Discharge Providers Date of Admission: 12/19/20 12:47 Date of Discharge: December 20, 2020 Attending Provider at Admission: Ernie Celis MD Attending Provider at Discharge: Ernie Celis MD Primary Care Provider: Artur Nuñez Reason for Visit Reason for Visit: [facility] Hospital Course Hospital Course 55-year-old female past medical history significant for hypertension hyperlipidemia coronary artery disease history of prior LAD stent and nonobstructive disease of right coronary artery for worsening of chest pain shortness of breath and abnormal stress test with moderate ischemia in LAD territory underwent left heart cath yesterday was noted to have significant more than 80% stenosis distal to the previously placed mid LAD stent. It was thought to be culprit and treated with overlapping drug-eluting stent postdilated with noncompliant balloon. RCA was noted to have proximal 60 to 70% stenosis while PLB has ostial 90% stenosis which is a small vessel, proximal RCA FFR assessment was performed which was not significant at 0.85 therefore PCI was deferred and medical management was suggested. Postop care remains uncomplicated/uneventful. This morning she is walking around without any problem. Both groin looks good no hematoma, please note that were not able to access through right groin therefore we have to choose the left groin. Previously radial artery was not easily accessible due to tortuosity. Patient will be discharged today home. Physical Exam Narrative: EXAM NARRATIVE: GENERAL: Patient is alert, awake and oriented x3. NECK: No jugular vein distension. HEENT: No cyanosis. No icterus. No pallor. HEART: Regular S1 and S2. No murmur, rub or gallop. LUNGS: Clear to auscultate bilaterally. ABDOMEN: Soft, nontender and nondistended. Positive bowel sounds. No guarding, rebound or tenderness. CENTRAL NERVOUS SYSTEM: Grossly nonfocal. EXTREMITIES: Lower extremities without edema bilaterally. Discharge Data Data Completed and Pending: Pending at discharge Category Date Time Status RADIOLOGY RESIDENT request for service Routin e Exams 12/19/20 07:30 Taken Labs from last 24 hours 12/20/20 12/20/20 12/19/20 04:28 04:28 14:22 WBC 5.8 RBC 3.99 L Hgb 9.5 L Hct 31.6 L MCV 79.2 L MCH 23.8 L MCHC 30.1 RDW 14.6 Plt Count 294 MPV 9.4 Neut % (Auto) 60.8 Lymph % (Auto) 27.9 Hall % (Auto) 7.8 Eos % (Auto) 2.4 Baso % (Auto) 0.9 Neut # (Auto) 3.53 Lymph # (Auto) 1.6 Hall # (Auto) 0.5 Eos # (Auto) 0.1 Baso # (Auto) 0.1 Nucleated RBC % (a uto) 0 Nucleated RBCs # 0.0 APTT 53.0 H Sodium 138 Potassium 4.2 Chloride 103 Carbon Dioxide 25 Anion Gap 14.2 BUN 11 Creatinine 0.7 GFR Calculation 86.2 L Glucose 237 H Calculated Osmolal ity 293 Calcium 8.8 Vitals: Last Vital Signs Temp 98.3 F 12/20/20 04:03 Pulse 90 12/20/20 05:42 Resp 18 12/20/20 04:03 BP 127/73 12/20/20 04:03 Pulse Ox 96 12/20/20 04:03 Discharge Plan Discharge Patient Disposition: Home Condition: Stable Prescriptions: New Adult Aspirin Regimen 81 mg tablet,delayed release (DR/EC) 81 mg PO DAILY Qty: 30 RF: 4 Continued metoprolol succinate 25 mg tablet extended release 24 hr 12.5 mg PO QAM RF: 0 clopidogrel [Plavix] 75 mg tablet 75 mg PO DAILY Qty: 90 RF: 1 isosorbide mononitrate 30 mg tablet extended release 24 hr 15 mg PO BID Qty: 90 RF: 3 (DME) lancets [OneTouch Delica Lancets] 33 gauge misc See Rx Instructions .ROUTE .MEDSUPPLY Qty: 100 RF: 0 pen needle, diabetic [TechLITE Pen Needle] 31 gauge x 5/16 needle See Rx Instructions .ROUTE .COMPLEX Qty: 100 RF: 0 blood sugar diagnostic [OneTouch Ultra Blue Test Strip] Strip See Rx Instructions .ROUTE .COMPLEX Qty: 200 RF: 0 citalopram 10 mg tablet 10 mg PO BEDTIME RF: 0 simvastatin 40 mg tablet 40 mg PO BEDTIME RF: 0 montelukast 10 mg tablet 10 mg PO DAILY RF: 0 amitriptyline 150 mg tablet 150 mg PO BEDTIME RF: 0 tizanidine 4 mg tablet 4 mg PO Q6H PRN (Reason: Muscle Spasm) RF: 0 sucralfate 1 gram tablet 1 g PO TID PRN (Reason: Acid Reflux) RF: 0 Euthyrox 100 mcg tablet 100 mcg PO QAM RF: 0 pantoprazole 40 mg tablet,delayed release (DR/EC) 40 mg PO DAILY PRN (Reason: Acid Reflux) RF: 0 metformin 1,000 mg tablet 1,000 mg PO BID RF: 0 fluticasone propionate 50 mcg/actuation [place],Suspension 2 spray INTRANASAL DAILY PRN (Reason: Allergy Symptoms) RF: 0 Levemir FlexTouch U-100 Insuln 100 unit/mL (3 mL) insulin pen See Rx Instructions .ROUTE .COMPLEX RF: 0 Victoza 3-Silas 0.6 mg/0.1 mL (18 mg/3 mL) pen injector 1.8 mg SUBCUT QAM RF: 0 Discharge Orders: Discharge Order (Routine); Ordered 12/20/20 Ordered By: Ernie Celis Referrals: Ernie Celis MD [Physician] - 02/12/21 3:30 pm (You have a post procedure followup with Dr. Celis at [facility] on February 12 at 3:30pm) Sachi Boyle FNP [Nurse Practitioner] - 12/27/20 10:15 am (You have a post procedure followup with GULSHAN Mckay at [facility] on December 27 at 10:15am) Discharge Diet: Cardiac and Diabetic Discharge Activity: Increase activity as tolerated Patient Instructions: Aspirin (By mouth), Left Heart Catheterization (DC), Opioid Safety, Post Angiogram Home Care Instructions Activity Restrictions/Additional Instructions: Follow-up with Ms Sachi Boyle in 7 days. Follow-up with Dr. Celis in 6 to 8 weeks. Discharge Attestations Time Spent in Discharge Care*: less than 30 min Specific Discharge Activities: educating patient Quality Metrics Clinical Quality Measures During this hospital stay, did patient experience: None Coding Level of Care Code Established Pt Acute Chg FW DC note Patient Type Established History Detailed Exam Detailed Medical Decision Making Moderate Complexity
[2020-12-20 08:16] VITALS: BP 129/75; PULSE 108; RESP 32; O2SAT 91
--- NOTE | 2020-12-20 08:47 | PC.PHAR ---
pt states she takes care of her medications-pt states she takes the medications entered-pt states she takes levemir flextouch u-100 40 units qam and 55 units hs ext med history shows last filled on 11/29/20 30 units qam and 50 units hs-pt states she doesnt think she takes lisinopril 2.5mg anymore ext med history shows last filled on 10/09/20 30d/s
[2020-12-20] MEDS: montelukast sodium 10 mg Tablet PO (09:35)
[2020-12-20] MEDS: levothyroxine 112 mcg Tablet PO (09:35)
[2020-12-20] MEDS: metoprolol succinate ER (24 HR) 25 mg Tablet 12.5 MG PO (09:35)
[2020-12-20] MEDS: pantoprazole DR 40 mg Tablet PO (09:35)
[2020-12-20] MEDS: citalopram 20 mg Tablet 10 MG PO (09:35)
[2020-12-20] MEDS: clopidogrel 75 mg Tablet PO (09:35)
[2020-12-20 10:27] VITALS: BP 129/75; PULSE 108; RESP 32; O2SAT 91
--- NOTE | 2020-12-20 11:47 | PC.CHAP ---
Pastoral Care Encounter/Spiritual Assessment Type of Contact [] Declined change release manager visit [] Patient/Family/Request visit [] Outpatient visit [] Follow-up visit [] Physician referral [] Code/Alert [x] Routine visit [] Staff referral [] Actively dying [] Patient sleeping [] Family support [] [] Out of room [] Palliative care [] [x] Receiving care in room [] Pre-surgical visit [] Trauma [] Long length of stay [] ICU visit [] Other: Relational/Emotional Strength [x] Patient feels connected with others/family/visitors/staff [] Distress [] Loneliness/isolation [] Abandonment Spirituality of Patient [x] Person of Mariama [] Attends Oriental Orthodox of their [place] [x] Believes in Prayer [] Reads Bible or Jainism materials [] There are Spiritual issues to be addressed Retail Marketing Coordinator Interventions [x] Prayer [x] Active listening [x] Non-anxious presence [x] Spiritual/emotional support [] Crisis/trauma care [x] Spiritual counseling [] Bereavement support [] Provided bereavement packet [] Provided Bible/devotional materials [] Provided toy/stuffed animal, coloring book to patient or family member [] Provided Communion [] Anointing/[place] [] Salvation [x] Completed spiritual assessment [] Other: Impact on Illness or Injury [] Angry [] Fearful [] Anxious [] Often cries [] Exhaustion [] Unable to work [] Unable to attend shinto [] Unable to walk/stand [] Unable to read [] Unable to drive [] Unable to eat/drink [] Unable to sleep [] Unable to be with family [] Patient intubated [] Other: Summary Had a stent in yahir feels good going today or tomorrow Time spent with patient 10 mins
--- NOTE | 2020-12-20 12:46 | PC.NURSE ---
Discharge Note Patient discharged to []home via [w/c to exit] accompanied by [manan]. Discharge instructions reviewed with patient and/or contact center representative. Mobile pharmacy medications and/or prescriptions provided. Belongings/home medications returned.
== END 2020-12-20 12:30 | disposition home or self-care (01) ==
LOC: CSU 12:48
PROVIDERS: Admitting Provider Internal Medicine Cardiovascular Disease; PCP Physician Assistant Medical; Visit Provider Internal Medicine Cardiovascular Disease
DX: I25.10 Atherosclerotic heart disease of native coronary artery without angina pectoris (principal); Z95.1 Presence of aortocoronary bypass graft; I10 Essential (primary) hypertension; E78.5 Hyperlipidemia, unspecified; Z87.891 Personal history of nicotine dependence; E66.9 Obesity, unspecified; Z68.38 Body mass index [BMI] 38.0-38.9, adult; F41.9 Anxiety disorder, unspecified; F32.9 Major depressive disorder, single episode, unspecified; M19.90 Unspecified osteoarthritis, unspecified site; E03.9 Hypothyroidism, unspecified; Z82.49 Family history of ischemic heart disease and other diseases of the circulatory system; Z83.3 Family history of diabetes mellitus
CPT/HCPCS: 36415; 80048; 85025; 85347; 85730; 92928; 93454; 93571; C1725; C1760; C1769; C1874; C1887; C1894; C9600; G0378; J0153; J1644; J2250; J3010; J3490; J7030; Q0163; Q9967

== ENCOUNTER → 2020-12-27 11:05 | Outpatient (BNVA) | payer MEDICAID, SELFPAY | PROVIDERS: PCP Physician Assistant Medical; Visit Provider Nurse Practitioner Family | DX: I25.10 Atherosclerotic heart disease of native coronary artery without angina pectoris (principal); Z09 Encounter for follow-up examination after completed treatment for conditions other than malignant neoplasm; Z87.891 Personal history of nicotine dependence | CPT/HCPCS: 80048 ==

== ENCOUNTER 2021-02-22 11:20 | Emergency (ER) | payer MEDICAID, SELFPAY ==
[2021-02-22 11:26] VITALS: BP 144/78; PULSE 95; RESP 16; TEMP 36.8; O2SAT 99; BMI 38.4
[2021-02-22 12:19] VITALS: BP 129/75; PULSE 91; RESP 17; TEMP 37.1; O2SAT 94
--- NOTE | 2021-02-22 12:37 | ED_ITS ---
HPI - Female Genitourinary General: Chief complaint: Urogenital-Female Stated complaint: LOW BACK, L FLANK PAIN, PAINFUL URINATION Time Seen by Provider: 02/22/21 11:37 History of Present Illness: HPI Narrative: 55-year-old female presents emergency room complaining of dysuria. Said symptoms for the last 3 to 4 days. She has some left flank pain as well no hematuria. She not had any vomiting or diarrhea denies fever. Patient denies any history of renal stones. She is diabetic. MD elicited complaint: UTI Onset (ago): day(s) (3-4) Location of symptoms: flank (Left) Severity: mild Quality of pain: cramping Consistency: constant Vaginal discharge: none Vaginal bleeding: none Urinary symptoms: Flank Pain Exacerbating factors: none Relieving factors: none Associated symptoms: Deny abdominal pain or nausea Treatment prior to arrival: none Review of Systems Const: Denies: fever(s), chills, body aches, change in appetite, fatigue or malaise ENMT: Denies: throat pain, ear or mastoid pain, nasal discharge or nasal congestion Card: Denies: chest pain, edema, dyspnea on exertion or orthopnea Resp: Denies: dyspnea, productive cough or non-productive cough GI: Denies: abdominal pain, nausea, vomiting, hematemesis, coffee ground emesis, diarrhea, constipation, bloating, hematochezia or melena : Denies: flank pain, difficulty voiding, dysuria, urinary frequency or urinary urgency Skin/Breast: Denies: rash or pruritus PFSH ED PFSH: Medical History Anemia Improved after transfusion 2 units. Hemoglobin 8.0 on discharge. Anxiety and depression Arthritis Bacterial vaginosis Coronary artery disease Had stent 03/2019 Depression Deviated septum Diabetes Disorder of left eustachian tube Hyperlipidemia Hypertension Hypothyroid Otalgia of both ears Pain, joint, knee, right Right lower quadrant abdominal pain Right ovarian cyst Uterine fibroid Surgical History H/O colonoscopy (05/15/20) History of nasal cauterization History of total left knee replacement History of total right knee replacement (~11/2017) History of tubal ligation Hx of heart artery stent (~03/2019) Family History Mother Diabetes Brother Diabetes Heart disease Hypercholesteremia Father Heart disease Sister Uterine cancer Social History Quit status (tobacco): has quit using tobacco Year quit tobacco: age 14 Alcohol intake: never Marital status: History of recent travel: No Physical Exam Const: COMMON NORMALS: no acute distress GENERAL APPEARANCE: cooperative and comfortable ORIENTATION/CONSCIOUSNESS: Yes awake, Yes oriented to person, Yes oriented to place and Yes oriented to time HENMT: COMMON NORMALS: normocephalic, atraumatic and hearing grossly normal bilaterally HEAD & SCALP: normocephalic and atraumatic Neck/C-Spine: COMMON NORMALS: no JVD Resp: COMMON NORMALS: normal respiratory effort, No retractions, No use of accessory muscles and clear to auscultation bilaterally AUSCULTATION: clear to auscultation bilaterally Cardio: COMMON NORMALS: no JVD, regular rate, regular rhythm and No murmurs present (Cardio) RATE: regular rate RHYTHM: regular rhythm GI: COMMON NORMALS: Soft to palpation and No hepatosplenomegaly present AUSCULTATION: Yes normoactive bowel sounds PALPATION: Yes Soft to palpation, No Tenderness to palpation present (GI), No Guarding due to palpation present (GI) and Yes No hepatosplenomegaly present : BLADDER/KIDNEY EXAM: Yes CVA tenderness Back/Pelvis: GENERAL BACK: Yes CVA tenderness CVA tenderness: left Extremity: COMMON NORMALS: normal to inspection, capillary refill normal, no clubbing, cyanosis or edema, no calf tenderness and no pedal edema Neuro: SENSORIUM/ORIENTATION: Yes oriented to person, Yes oriented to place and Yes oriented to time Skin: COMMON NORMALS: no rashes or lesions noted GENERAL SKIN EXAM: no rashes or lesions noted Course Vital Signs: Vital signs: Vital Signs Temperature 98.7 F 02/22/21 12:19 Pulse Rate 91 02/22/21 12:19 Respiratory Rate 17 02/22/21 12:19 Blood Pressure 129/75 02/22/21 12:19 Pulse Oximetry 94 02/22/21 12:19 MDM - Female MDM Narrative: Medical decision making narrative: Early pyelonephritis. Will start on Cipro 500 twice daily for 10 days return if has further problems. Lab Data: Labs: Lab Results 02/22/21 02/22/21 02/22/21 12:20 12:20 12:35 WBC 8.5 10^3/uL 10^3/ uL (4.0-10.0) RBC 4.69 10^6/uL 10^6 /uL (4.1-5.3) Hgb 10.4 g/dL L g/dL (11.5-15.3) Hct 36.2 % L % (37.0-47.0) MCV 77.2 fl L fl (81-99) MCH 22.2 pg L pg (28.0-34.0) MCHC 28.7 g/dL L g/dL (30.0-36.0) RDW 17.2 % H % (12.1-15.1) Plt Count 317 10^3/cmm 10^3 /cmm (130-400) MPV 9.7 fL fL (7.4-10.4) Neut % (Auto) 69.7 % % Lymph % (Auto) 20.8 % % [place] % (Auto) 5.2 % % Eos % (Auto) 3.2 % % Baso % (Auto) 0.9 % % Neut # (Auto) 5.94 10^3/uL 10^3 /uL (1.8-7.7) Lymph # (Auto) 1.8 10^3/uL 10^3/ uL (0.8-4.8) [place] # (Auto) 0.4 10^3/uL 10^3/ uL (0.2-0.9) Eos # (Auto) 0.3 10^3/uL 10^3/ uL (0.0-0.8) Baso # (Auto) 0.1 10^3/uL 10^3/ uL (0.0-0.1) Nucleated RBC % (a uto) 0 % % Nucleated RBCs # 0.0 /100WBC /100W BC Sodium 139 mmol/L mmol/L (136-145) Potassium 3.7 mmol/L mmol/L (3.5-5.1) Chloride 100 mmol/L mmol/L (98-107) Carbon Dioxide 27 mmol/L mmol/L (22-29) Anion Gap 15.7 (5-19) BUN 16 mg/dL mg/dL (6-20) Creatinine 0.6 mg/dL mg/dL (0.5-0.9) GFR Calculation 103.0 mL/min mL/m in (90-130) Glucose 175 mg/dL H mg/dL (65-115) Calculated Osmolal ity 293 mOsm/kg mOsm/ kg (285-295) Calcium 9.4 mg/dL mg/dL (8.5-10.5) Urine Color Yellow (Yellow) Urine Appearance Cloudy (CLEAR) Urine pH 5 (5-7) Ur Specific Gravit y 1.010 (1.005-1.030) Urine Protein Neg (Negative) Urine Glucose (UA) Norm (Normal) Urine Ketones Negative (Negative) Urine Blood 2+ H (Negative) Urine Nitrate Positive H (Negative) Urine Bilirubin Neg (Negative) Urine Urobilinogen 1 mg/dL H mg/dL (Negative) Ur Leukocyte Donita ase 2+ H (Negative) Urine RBC 0-4 /hpf H /hpf (0-2) Urine WBC Too numerous to c nt /hpf H /hpf (0-5) Ur Squamous Epith Cells 5-10 /hpf H /hpf (0-5) Ur Transition Epit h Cell 0-4 /hpf /hpf Ur Renal Epithelia l Cell 0-4 /hpf /hpf Calcium Oxalate Cr ystal 0-4 /hpf H /hpf Amorphous Sediment Not Reportable Urine Bacteria 4+ /hpf H /hpf (NONE) Urine Mucus 1+ /hpf /hpf Ur Oval Fat Bodies None /hpf /hpf Discharge Plan Discharge Patient Disposition: Home Clinical Impression: Pyelonephritis Condition: Stable Prescriptions: New Cipro 500 mg tablet 500 mg PO BID Qty: 20 RF: 0 No Action metoprolol succinate 25 mg tablet extended release 24 hr 25 mg PO QAM Qty: 90 RF: 3 clopidogrel [Plavix] 75 mg tablet 75 mg PO DAILY Qty: 90 RF: 1 isosorbide mononitrate 30 mg tablet extended release 24 hr 15 mg PO BID Qty: 90 RF: 3 (DME) lancets [OneTouch Delica Lancets] 33 gauge misc See Rx Instructions .ROUTE .MEDSUPPLY Qty: 100 RF: 0 pen needle, diabetic [TechLITE Pen Needle] 31 gauge x 5/16 needle See Rx Instructions .ROUTE .COMPLEX Qty: 100 RF: 0 blood sugar diagnostic [OneTouch Ultra Blue Test Strip] Strip See Rx Instructions .ROUTE .COMPLEX Qty: 200 RF: 0 citalopram 10 mg tablet 10 mg PO BEDTIME RF: 0 simvastatin 40 mg tablet 40 mg PO BEDTIME RF: 0 montelukast 10 mg tablet 10 mg PO DAILY RF: 0 Adult Aspirin Regimen 81 mg tablet,delayed release (DR/EC) 81 mg PO DAILY Qty: 30 RF: 4 amitriptyline 150 mg tablet 150 mg PO BEDTIME RF: 0 sucralfate 1 gram tablet 1 g PO TID PRN (Reason: Acid Reflux) RF: 0 Euthyrox 100 mcg tablet 100 mcg PO QAM RF: 0 pantoprazole 40 mg tablet,delayed release (DR/EC) 40 mg PO DAILY PRN (Reason: Acid Reflux) RF: 0 metformin 1,000 mg tablet 1,000 mg PO BID RF: 0 fluticasone propionate 50 mcg/actuation [place],Suspension 2 spray INTRANASAL DAILY PRN (Reason: Allergy Symptoms) RF: 0 Levemir FlexTouch U-100 Insuln 100 unit/mL (3 mL) insulin pen See Rx Instructions .ROUTE .COMPLEX RF: 0 Victoza 3-Silas 0.6 mg/0.1 mL (18 mg/3 mL) pen injector 1.8 mg SUBCUT QAM RF: 0 Discharge Orders: Discharge ED (Routine); Ordered 02/22/21 Ordered By: Tim Aviles Referrals: Artur Nuñez [Primary Care Provider] - Patient Instructions: Opioid Safety Activity Restrictions/Additional Instructions: Follow-up with your primary care doctor in a week return sooner if you have further problems. Coding Level of Care Code ED Risk Officer for Chg Fwd Exam Comprehensive
[2021-02-22] MEDS: sodium chloride 0.9% 1,000 ML 999 ML IV (12:45)
[2021-02-22 12:53] LABS: Basophils # 0.1 10^3/uL (0.0-0.1); Basophils % 0.9 %; Eosinophils # 0.3 10^3/uL (0.0-0.8); Eosinophils % 3.2 %; Hematocrit 36.2 % (37.0-47.0); Hemoglobin 10.4 g/dL (11.5-15.3); Lymphocytes # 1.8 10^3/uL (0.8-4.8); Lymphocytes % 20.8 %; Mean Corpuscular HGB Conc 28.7 g/dL (30.0-36.0); Mean Corpuscular Hemoglobin 22.2 pg (28.0-34.0); Mean Corpuscular Volume 77.2 fl (81-99); Mean Platelet Volume 9.7 fL (7.4-10.4); Monocytes # 0.4 10^3/uL (0.2-0.9); Monocytes % 5.2 %; Neutrophils # 5.94 10^3/uL (1.8-7.7); Neutrophils % 69.7 %; Nucleated Red Blood Cells % 0 %; Platelet Count 317 10^3/cmm (130-400); Red Blood Count 4.69 10^6/uL (4.1-5.3); Red Cell Distribution Width 17.2 % (12.1-15.1); White Blood Count 8.5 10^3/uL (4.0-10.0)
[2021-02-22 13:07] LABS: Anion Gap 15.7 (5-19); Blood Urea Nitrogen 16 mg/dL (6-20); Calcium 9.4 mg/dL (8.5-10.5); Carbon Dioxide 27 mmol/L (22-29); Chloride 100 mmol/L (98-107); Glucose 175 mg/dL (65-115); Osmolality Calculated 293 mOsm/kg (285-295); Potassium 3.7 mmol/L (3.5-5.1); Sodium 139 mmol/L (136-145)
[2021-02-22 13:11] LABS: Protein Urine Neg (Negative); Urine Appearance Cloudy (CLEAR); Urine Color Yellow (Yellow); pH Urine 5 (5-7)
[2021-02-22 13:12] LABS: Add Urine Microscopic? YES; Bilirubin Urine Neg (Negative); Blood Urine 2+ (Negative); Glucose Urine UA Norm (Normal); Ketones Urine Negative (Negative); Leukocyte Esterase Urine 2+ (Negative); Nitrate Urine Positive (Negative); RBC Urine 0-4 /hpf (0-2); Urobilinogen Urine 1 mg/dL (Negative)
[2021-02-22 13:13] LABS: Bacteria Urine 4+ /hpf; Calcium Oxalate Crystals Urine 0-4 /hpf; Mucus Urine 1+ /hpf; Transitional Epi Cells Urine 0-4 /hpf; WBC Urine TOO NUMEROUS TO CNT /hpf (0-5)
[2021-02-22 13:32] LABS: Add Urine Culture? Yes
[2021-02-22 13:33] LABS: Renal Epithelial Cells Urine 0-4 /hpf
[2021-02-22 15:18] VITALS: BP 129/75; PULSE 77; RESP 12; O2SAT 97
== END 2021-02-22 15:19 | disposition home or self-care (01) ==
PROVIDERS: Emergency Provider Family Medicine; PCP Physician Assistant Medical
DX: N12 Tubulo-interstitial nephritis, not specified as acute or chronic (principal); D64.9 Anemia, unspecified; I25.10 Atherosclerotic heart disease of native coronary artery without angina pectoris; I10 Essential (primary) hypertension; E78.5 Hyperlipidemia, unspecified; E03.9 Hypothyroidism, unspecified; Z79.82 Long term (current) use of aspirin; Z87.891 Personal history of nicotine dependence
CPT/HCPCS: 36415; 80048; 81001; 85025; 87040; 87077; 87086; 87186; 96360; 99283; J7030

== ENCOUNTER → 2021-07-24 14:15 | Outpatient (BNVA) | payer MEDICAID, SELFPAY | PROVIDERS: PCP Physician Assistant Medical; Visit Provider Specialist | DX: M25.561 Pain in right knee (principal); M25.562 Pain in left knee; Z96.653 Presence of artificial knee joint, bilateral | CPT/HCPCS: 73560; 73565 ==

== ENCOUNTER 2021-10-01 12:59 | Emergency (ER) | payer MEDICAID, SELFPAY ==
[2021-10-01] VITALS (7 sets, daily range): BP systolic 119–141; BP diastolic 64–82; PULSE 95–111; RESP 14–21; TEMP 36.6–37.2; O2SAT 94–97; BMI 39.3
[2021-10-01 15:12] LABS: Basophils # 0.1 10^3/uL (0.0-0.1); Basophils % 1.2 %; Eosinophils # 0.2 10^3/uL (0.0-0.8); Eosinophils % 2.9 %; Hematocrit 25.5 % (37.0-47.0); Lymphocytes # 1.8 10^3/uL (0.8-4.8); Lymphocytes % 24.9 %; Mean Corpuscular HGB Conc 23.9 g/dL (30.0-36.0); Mean Corpuscular Hemoglobin 13.7 pg (28.0-34.0); Mean Corpuscular Volume 57.4 fl (81-99); Mean Platelet Volume 8.7 fL (7.4-10.4); Monocytes # 0.6 10^3/uL (0.2-0.9); Monocytes % 7.5 %; Neutrophils # 4.62 10^3/uL (1.8-7.7); Nucleated Red Blood Cells % 0.3 %; Platelet Count 342 10^3/cmm (130-400); Red Blood Count 4.44 10^6/uL (4.1-5.3); Red Cell Distribution Width 22.7 % (12.1-15.1); White Blood Count 7.3 10^3/uL (4.0-10.0)
[2021-10-01 15:27] LABS: Hemoglobin 6.1 g/dL (11.5-15.3)
[2021-10-01 15:28] LABS: Anion Gap 17.4 (5-19); Blood Urea Nitrogen 9 mg/dL (6-20); Calcium 9.4 mg/dL (8.5-10.5); Carbon Dioxide 25 mmol/L (22-29); Chloride 96 mmol/L (98-107); Creatinine Clr Calc Pharmacy 95.5178; Glomerular Filtration Rate 85.9 mL/min (90-130); Glucose 287 mg/dL (65-115); Osmolality Calculated 287 mOsm/kg (285-295); Potassium 4.4 mmol/L (3.5-5.1); Sodium 134 mmol/L (136-145)
--- NOTE | 2021-10-01 15:58 | W.ED.RECABL ---
HPI - Recheck/Abnormal Lab/Rx General: Chief Complaint: Recheck/Abnormal Lab/Rx Stated Complaint: abnormal labs Time Seen by Provider: 10/01/21 15:37 Source: patient Mode of arrival: ambulatory Limitations: no limitations History of Present Illness: 48-year-old female presents the emergency room with complaint of an abnormal labs she had routine work-up at her doctor's office found hemoglobin was markedly low and was called back and advised to return to the ER. She has had significant anemia problems in the past. She related to nosebleeds previously she states she has not had any epistaxis recently she denies any hematochezia melena hematemesis or coffee-ground emesis. No vomiting no diarrhea no fever sweats chills or abdominal pain MD complaint: abnormal lab Context: called for abnormal lab result Associated symptoms: shortness of breath Review of Systems Const: Denies: fever(s), chills, body aches, change in appetite, fatigue or malaise ENMT: Denies: throat pain, ear or mastoid pain, nasal discharge or nasal congestion Card: Denies: chest pain, edema, dyspnea on exertion or orthopnea Resp: Denies: dyspnea, productive cough or non-productive cough GI: Denies: abdominal pain, nausea, vomiting, hematemesis, coffee ground emesis, diarrhea, constipation, bloating, hematochezia or melena : Denies: flank pain, difficulty voiding, dysuria, urinary frequency or urinary urgency Skin/Breast: Denies: rash or pruritus PFSH ED PFSH: Medical History Anemia Improved after transfusion 2 units. Hemoglobin 8.0 on discharge. Anxiety and depression Arthritis Bacterial vaginosis Coronary artery disease Had stent 03/2019 Depression Deviated septum Diabetes Disorder of left eustachian tube Hyperlipidemia Hypertension Hypothyroid Otalgia of both ears Pain, joint, knee, right Right lower quadrant abdominal pain Right ovarian cyst Uterine fibroid Surgical History H/O colonoscopy (05/15/20) History of nasal cauterization History of total left knee replacement History of total right knee replacement (~11/2017) History of tubal ligation Hx of heart artery stent (~03/2019) Family History Mother Diabetes Brother Diabetes Heart disease Hypercholesteremia Father Heart disease Sister Uterine cancer Social History Smoking and tobacco status: former smoker Quit status (tobacco): has quit using tobacco Year quit tobacco: age 14 Alcohol intake: never Marital status: History of recent travel: No Female Reproductive History: Date of last menstrual period: 10/01/17 Physical Exam Const: COMMON NORMALS: no acute distress GENERAL APPEARANCE: cooperative and comfortable ORIENTATION/CONSCIOUSNESS: Yes awake, Yes oriented to person, Yes oriented to place and Yes oriented to time HENMT: COMMON NORMALS: normocephalic, atraumatic and hearing grossly normal bilaterally HEAD & SCALP: normocephalic and atraumatic Neck/C-Spine: COMMON NORMALS: no JVD Resp: COMMON NORMALS: normal respiratory effort, No retractions, No use of accessory muscles and clear to auscultation bilaterally AUSCULTATION: clear to auscultation bilaterally Cardio: COMMON NORMALS: no JVD, regular rate, regular rhythm and No murmurs present (Cardio) RATE: regular rate RHYTHM: regular rhythm GI: COMMON NORMALS: Soft to palpation and No hepatosplenomegaly present AUSCULTATION: Yes normoactive bowel sounds PALPATION: Yes Soft to palpation, No Tenderness to palpation present (GI), No Guarding due to palpation present (GI) and Yes No hepatosplenomegaly present Extremity: COMMON NORMALS: normal to inspection, capillary refill normal, no clubbing, cyanosis or edema, no calf tenderness and no pedal edema Neuro: SENSORIUM/ORIENTATION: Yes oriented to person, Yes oriented to place and Yes oriented to time Skin: COMMON NORMALS: no rashes or lesions noted GENERAL SKIN EXAM: no rashes or lesions noted Course Vital Signs: Vital signs: Vital Signs Temperature 98.0 F 10/01/21 17:38 Pulse Rate 98 10/01/21 18:19 Respiratory Rate 18 10/01/21 18:19 Blood Pressure 141/82 10/01/21 18:19 Pulse Oximetry 97 10/01/21 18:19 MDM - Recheck/Abnormal Lab/Rx Medical Decision Making Transfuse unit of blood in the emergency room. We do not have the availability of beds in the floor or in outpatients to transfuse so we will have to do here she is moderately symptomatic anemia work-up done prior to transfusion. Medical Records I reviewed the patient's medical records. Lab Data I reviewed the patient's lab results. : 10/01/21 14:50 10/01/21 14:50 Laboratory Results WBC 7.3 10^3/uL (4.0-10.0) 10/01/21 14:50 RBC 4.44 10^6/uL (4.1-5.3) 10/01/21 14:50 Hgb 6.1 g/dL (11.5-15.3) L* 10/01/21 14:50 Hct 25.5 % (37.0-47.0) L 10/01/21 14:50 MCV 57.4 fl (81-99) L 10/01/21 14:50 MCH 13.7 pg (28.0-34.0) L 10/01/21 14:50 MCHC 23.9 g/dL (30.0-36.0) L 10/01/21 14:50 RDW 22.7 % (12.1-15.1) H 10/01/21 14:50 Plt Count 342 10^3/cmm (130-400) 10/01/21 14:50 MPV 8.7 fL (7.4-10.4) 10/01/21 14:50 Neut % (Auto) 63.0 % 10/01/21 14:50 Lymph % (Auto) 24.9 % 10/01/21 14:50 [place] % (Auto) 7.5 % 10/01/21 14:50 Eos % (Auto) 2.9 % 10/01/21 14:50 Baso % (Auto) 1.2 % 10/01/21 14:50 Reticulocyte % (Auto) 2.0 % (0.5-2.0) 10/01/21 14:50 Neut # (Auto) 4.62 10^3/uL (1.8-7.7) 10/01/21 14:50 Lymph # (Auto) 1.8 10^3/uL (0.8-4.8) 10/01/21 14:50 [place] # (Auto) 0.6 10^3/uL (0.2-0.9) 10/01/21 14:50 Eos # (Auto) 0.2 10^3/uL (0.0-0.8) 10/01/21 14:50 Baso # (Auto) 0.1 10^3/uL (0.0-0.1) 10/01/21 14:50 Nucleated RBC % (auto) 0.3 % 10/01/21 14:50 Nucleated RBCs # 0.0 /100WBC 10/01/21 14:50 Haptoglobin 152.0 mg/L (30-200) 10/01/21 14:50 Sodium 134 mmol/L (136-145) L 10/01/21 14:50 Potassium 4.4 mmol/L (3.5-5.1) 10/01/21 14:50 Chloride 96 mmol/L (98-107) L 10/01/21 14:50 Carbon Dioxide 25 mmol/L (22-29) 10/01/21 14:50 Anion Gap 17.4 (5-19) 10/01/21 14:50 BUN 9 mg/dL (6-20) 10/01/21 14:50 Creatinine 0.7 mg/dL (0.5-0.9) 10/01/21 14:50 GFR Calculation 85.9 mL/min (90-130) L 10/01/21 14:50 Glucose 287 mg/dL (65-115) H 10/01/21 14:50 Calculated Osmolality 287 mOsm/kg (285-295) 10/01/21 14:50 Calcium 9.4 mg/dL (8.5-10.5) 10/01/21 14:50 Iron 16 ug/dL (37-145) L 10/01/21 14:50 TIBC 510 mcg/dl 10/01/21 14:50 % Saturation 3.1 % (20-50) L 10/01/21 14:50 Unsat Iron Binding 494 ug/dL (112-347) H 10/01/21 14:50 Vitamin B12 457 pg/mL (232-1245) 10/01/21 14:50 Folate > 20.0 ng/mL (4.8-37.3) 10/01/21 16:45 Blood Type A Positive 10/01/21 14:50 Rho(D) Type Positive 10/01/21 14:50 Antibody Screen Negative 10/01/21 14:50 Crossmatch See Detail 10/01/21 14:50 Discharge Plan Discharge Patient Disposition: Home Clinical Impression: Microcytic anemia Condition: Stable Prescriptions: No Action metoprolol succinate 25 mg tablet extended release 24 hr 25 mg PO QAM Qty: 90 3RF clopidogrel [Plavix] 75 mg tablet 75 mg PO DAILY Qty: 90 1RF (DME) lancets [OneTouch Delica Lancets] 33 gauge misc See Rx Instructions .ROUTE .MEDSUPPLY Qty: 100 0RF Rx Instructions: test once daily pen needle, diabetic [TechLITE Pen Needle] 31 gauge x 5/16 needle See Rx Instructions .ROUTE .COMPLEX Qty: 100 0RF Dose Instruction: USE DIRECTED Rx Instructions: USE DIRECTED blood sugar diagnostic [Mode [place] FaireTouch Ultra Blue Test Strip] Strip See Rx Instructions .ROUTE .COMPLEX Qty: 200 0RF Dose Instruction: USE TO TEST BLOOD SUGARS TWICE DAILY Rx Instructions: USE TO TEST BLOOD SUGARS TWICE DAILY isosorbide mononitrate 30 mg tablet extended release 24 hr 15 mg PO BID Qty: 14 0RF Rx Instructions: [facility] needs appt with [facility] refills citalopram 10 mg tablet 10 mg PO BEDTIME 0RF simvastatin 40 mg tablet 40 mg PO BEDTIME 0RF montelukast 10 mg tablet 10 mg PO DAILY 0RF Adult Aspirin Regimen 81 mg tablet,delayed release (DR/EC) 81 mg PO DAILY Qty: 30 4RF amitriptyline 150 mg tablet 150 mg PO BEDTIME 0RF sucralfate 1 gram tablet 1 g PO TID PRN (Reason: Acid Reflux) 0RF Euthyrox 100 mcg tablet 100 mcg PO QAM 0RF pantoprazole 40 mg tablet,delayed release (DR/EC) 40 mg PO DAILY PRN (Reason: Acid Reflux) 0RF metformin 1,000 mg tablet 1,000 mg PO BID 0RF fluticasone propionate 50 mcg/actuation [place],Suspension 2 spray INTRANASAL DAILY PRN (Reason: Allergy Symptoms) 0RF Levemir FlexTouch U-100 Insuln 100 unit/mL (3 mL) insulin pen See Rx Instructions .ROUTE .COMPLEX 0RF Rx Instructions: 40 unit subcutaneously qam and 55 units hs Discharge Orders: Discharge ED (Routine); Ordered 10/01/21 Ordered By: Tim Aviles Referrals: Chantelle Mcgee [Primary Care Provider] - Discharge Diet: Usual diet Discharge Activity: Increase activity as tolerated Patient Instructions: Opioid Safety Activity Restrictions/Additional Instructions: Follow-up with your primary care doctor for further evaluation of your knee and Coding Level of Care Code ED Transformer Coil Winder for Kajalg Fwd Exam Comprehensive
[2021-10-01 17:40] LABS: Folate Level > 20.0 ng/mL (4.8-37.3)
[2021-10-01 17:55] LABS: Iron 16 ug/dL (37-145); Percent Saturation 3.1 % (20-50); Total Iron Binding Capacity 510 mcg/dl; Unsaturated Iron Binding 494 ug/dL (112-347)
[2021-10-01 18:10] LABS: Vitamin B12 457 pg/mL (232-1245)
[2021-10-03 15:02] LABS: Erythropoietin 569.2 mIU/mL (2.6-18.5)
== END 2021-10-01 19:03 | disposition home or self-care (01) ==
PROVIDERS: Emergency Medicine; Emergency Provider Family Medicine; PCP Registered Nurse
DX: D50.9 Iron deficiency anemia, unspecified (principal)
CPT/HCPCS: 36430; 80048; 82607; 82668; 82746; 83010; 83540; 83550; 85025; 85045; 86850; 86900; 86920; 99283; P9016

== ENCOUNTER → 2022-01-16 14:52 | Outpatient (BNVA) | payer MEDICAID, SELFPAY | PROVIDERS: PCP Registered Nurse; Visit Provider Internal Medicine | DX: I25.10 Atherosclerotic heart disease of native coronary artery without angina pectoris (principal); R07.9 Chest pain, unspecified; I10 Essential (primary) hypertension; Z87.891 Personal history of nicotine dependence | CPT/HCPCS: 99214 ==

== ENCOUNTER 2022-03-08 10:35 | Emergency (ER) | payer MEDICAID, SELFPAY ==
[2022-03-08 10:39] VITALS: BP 173/97; PULSE 84; RESP 21; TEMP 36.6; O2SAT 95; BMI 39.3
--- NOTE | 2022-03-08 10:42 | ECG_ITS ---
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 Measurements Intervals [place] Rate: 82 P: 2 LA: 165 QRS: -11 QRSD: 81 T: 67 QT: 368 QTc: 430 Interpretive Statements SINUS RHYTHM WITH SINUS ARRHYTHMIA VOLTAGE CRITERIA FOR LVH [MEETS CRITERIA IN ONE OF: R(aVL), S(V1), R(V5), R(V5/V6)+S(V1)] POSSIBLE ANTERIOR MYOCARDIAL INFARCTION , PROBABLY OLD [30 ms Q WAVE IN V3/V4, OR R < 0.2 mV IN V4] Compared to ECG 03/17/2020 17:40:48 Myocardial infarct finding now present Electronically Signed On 03-08-2022 15:13:19 SWITCHBOARD OPERATOR ASSISTANT by Jamee Cardenas M.D. [email or web address]
--- NOTE | 2022-03-08 11:00 | W.ED.CHESTPA ---
HPI - Chest Pain General: Chief Complaint: Chest Pain Stated Complaint: Chest Pain Time Seen by Provider: 03/08/22 10:58 Source: patient and family Mode of arrival: ambulatory Limitations: no limitations History of Present Illness: This patient presents to our emergency department because she is concerned about fleeting short duration (approximately 3 to 5-minute) chest pain she has been having over the past week to 10 days. She states there is no predictable pattern to these pains. She states they never awaken her from sleep however. She states that there seem to be in the lower part of her chest sometimes left sometimes right. Not changed with deep breaths, cough, etc. She is has no associated nausea diaphoresis shortness of breath etc. She recently had a sestamibi stress test followed by a coronary angiogram with stents placed. She states that she is been taking all her medications faithfully. She states she has been moving some household items recently but does not recall any specific time when she developed knee pain. She is a nontobacco user. She denies any history of food intolerance, peptic ulcer disease etc. She has had no abdominal surgeries. She states her last episode of chest pain was while driving to the emergency department she states it lasted approximately 2 to 3 minutes. He describes them as nondescript with no ripping or tearing etc. 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 Associated symptoms: Reports no associated symptoms; Deny abdominal pain, dyspnea, fever(s), nausea, palpitations, syncope or vomiting Review of Systems Const: Denies: fever(s) or chills Eyes: Denies: change in vision ENMT: Denies: throat pain, odynophagia, nasal discharge or nasal congestion Card: Denies: palpitations, syncope, pre-syncope, dyspnea on exertion or leg pain with exertion Resp: Denies: dyspnea, productive cough or non-productive cough GI: Denies: abdominal pain, nausea, vomiting or diarrhea : Denies: flank pain, difficulty voiding, dysuria or urinary frequency Musc: Denies: neck pain or back pain Skin/Breast: Denies: rash, pruritus or erythema Neuro: Denies: headache(s), numbness in extremities, weakness in extremities, vertigo or confusion Psych: Denies: anxiety or depression All/Imm: Denies: urticaria or throat swelling PFSH ED PFSH: Medical History Anemia Improved after transfusion 2 units. Hemoglobin 8.0 on discharge. Anxiety and depression Arthritis Bacterial vaginosis Coronary artery disease Had stent 03/2019 Depression Deviated septum Diabetes Disorder of left eustachian tube Hyperlipidemia Hypertension Hypothyroid Otalgia of both ears Pain, joint, knee, right Right lower quadrant abdominal pain Right ovarian cyst Uterine fibroid Surgical History H/O colonoscopy (05/15/20) History of nasal cauterization History of total left knee replacement History of total right knee replacement (~11/2017) History of tubal ligation Hx of heart artery stent (~03/2019) Family History Mother Diabetes Brother Diabetes Heart disease Hypercholesteremia Father Heart disease Sister Uterine cancer Social History Smoking and tobacco status: former smoker Quit status (tobacco): has quit using tobacco Year quit tobacco: age 14 Alcohol intake: never Marital status: History of recent travel: No Female Reproductive History: Date of last menstrual period: 10/01/17 Physical Exam Narrative: EXAM NARRATIVE: She makes good eye contact. Answers questions in a goal-directed fashion appears to be comfortable. Const: COMMON NORMALS: no acute distress, patient oriented x3, healthy appearing and alert NUTRITIONAL APPEARANCE: overweight HENMT: COMMON NORMALS: normocephalic, atraumatic, Normal nasal mucous membranes and turbinates present and moist oral mucous membranes HEAD & SCALP: normocephalic and atraumatic NOSE: Normal nasal mucous membranes and turbinates present Eye: COMMON NORMALS: Equal, round and reactive pupils present, EOMs intact bilaterally, conjunctivae normal and no scleral icterus CONJUNCTIVA: Yes conjunctivae normal PUPIL: Yes Equal, round and reactive pupils present Neck/C-Spine: COMMON NORMALS: full ROM, no JVD and No carotid bruits Chest: COMMONS NORMALS: normal inspection of the chest and normal palpation of entire chest wall OTHER: Elevation and abduction of her right arm at the shoulder reproduces some discomfort. Resp: COMMON NORMALS: normal respiratory effort, No retractions and clear to auscultation bilaterally AUSCULTATION: clear to auscultation bilaterally Cardio: COMMON NORMALS: no JVD, regular rate, regular rhythm, No murmurs present (Cardio) and Peripheral pulses 2+ throughout RATE: regular rate RHYTHM: regular rhythm PERIPHERAL PULSES: Peripheral pulses 2+ throughout GI: COMMON NORMALS: Soft to palpation, non-tender and no masses PALPATION: Yes Soft to palpation : COMMON NORMALS: Yes no CVA tenderness BLADDER/KIDNEY EXAM: Yes no CVA tenderness Back/Pelvis: COMMON NORMALS: no CVA tenderness, thoracic and lumbar spine normal to inspection, no thoracic nor lumbar tenderness and thoraco-lumbar ROM normal Extremity: COMMON NORMALS: normal to inspection, no joint enlargement, no calf tenderness and no pedal edema Neuro: COMMON NORMALS: patient oriented x3, moves all extremities, no focal motor deficits and no sensory deficits noted SENSORIUM/ORIENTATION: Yes alert SPEECH: speech normal Psych: COMMON NORMALS: mental status grossly normal Skin: COMMON NORMALS: no rashes or lesions noted, turgor normal and no jaundice GENERAL SKIN EXAM: no rashes or lesions noted and turgor normal Course Reevaluation(s): Reevaluation #1: The patient remained chest pain-free and otherwise symptom-free since arrival. Jerome examination reveals no new or focal findings. We reviewed her current studies to include 2 negative troponins, no acute changes in EKG and the predictive value. She does have a stress test that was ordered by cardiology on it is unclear why this has not been completed. A order to case management to assist in getting this scheduled as been placed. She is stable at this time for discharge with close follow-up. Time: 14:56 Vital Signs: Vital signs: Vital Signs Temperature 98 F 03/08/22 10:39 Pulse Rate 74 03/08/22 13:44 Respiratory Rate 21 H 03/08/22 10:39 Blood Pressure 175/92 03/08/22 13:44 Pulse Oximetry 95 03/08/22 10:39 Oxygen Delivery Me thod 03/08/22 10:39 MDM - Chest Pain Medical Decision Making Patient with a known history of coronary disease who has been having some fleeting nondescript anterior chest pains of 1 to 3 to 5-minute duration over the past week to 2. No sustained chest pain or associated symptoms to include shortness of breath, nausea diaphoresis etc. Her work-up today reveals some possible muscular skeletal component. She had serial troponins which were negative as well as serial EKGs were negative making her relatively low risk for ongoing ischemia, ACS etc. at this time. Case management was consulted to assist in getting her previously scheduled stress test completed. We will provide her nitroglycerin for prolonged chest pain but we also discussed return precautions for chest pain not relieved by sublingual nitroglycerin, chest pain that lasts more than 30 to 45 minutes or other concerning symptoms. No evidence of other potential serious etiologies of chest pain clinically or by history at this time. Medical Records I reviewed the patient's medical records. Lab Data I reviewed the patient's lab results. : 03/08/22 12:08 03/08/22 12:08 Radiology Impressions Chest X-Ray 03/08/22 11:19 IMPRESSION: No acute findings. Laboratory Results WBC 6.1 10^3/uL (4.0-10.0) 03/08/22 12:08 RBC 4.75 10^6/uL (4.1-5.3) 03/08/22 12:08 Hgb 11.7 g/dL (11.5-15.3) 03/08/22 12:08 Hct 38.2 % (37.0-47.0) 03/08/22 12:08 MCV 80.4 fl (81-99) L 03/08/22 12:08 MCH 24.6 pg (28.0-34.0) L 03/08/22 12:08 MCHC 30.6 g/dL (30.0-36.0) 03/08/22 12:08 RDW 18.7 % (12.1-15.1) H 03/08/22 12:08 Plt Count 264 10^3/cmm (130-400) 03/08/22 12:08 MPV 9.7 fL (7.4-10.4) 03/08/22 12:08 Neut % (Auto) 64.2 % 03/08/22 12:08 Lymph % (Auto) 25.1 % 03/08/22 12:08 [place] % (Auto) 5.9 % 03/08/22 12:08 Eos % (Auto) 3.4 % 03/08/22 12:08 Baso % (Auto) 1.1 % 03/08/22 12:08 Neut # (Auto) 3.93 10^3/uL (1.8-7.7) 03/08/22 12:08 Lymph # (Auto) 1.5 10^3/uL (0.8-4.8) 03/08/22 12:08 [place] # (Auto) 0.4 10^3/uL (0.2-0.9) 03/08/22 12:08 Eos # (Auto) 0.2 10^3/uL (0.0-0.8) 03/08/22 12:08 Baso # (Auto) 0.1 10^3/uL (0.0-0.1) 03/08/22 12:08 Nucleated RBC % (auto) 0 % 03/08/22 12:08 Nucleated RBCs # 0.0 /100WBC 03/08/22 12:08 Sodium 137 mmol/L (136-145) 03/08/22 12:08 Potassium 4.2 mmol/L (3.5-5.1) 03/08/22 12:08 Chloride 98 mmol/L (98-107) 03/08/22 12:08 Carbon Dioxide 27 mmol/L (22-29) 03/08/22 12:08 Anion Gap 16.2 (5-19) 03/08/22 12:08 BUN 13 mg/dL (6-20) 03/08/22 12:08 Creatinine 0.7 mg/dL (0.5-0.9) 03/08/22 12:08 GFR Calculation 85.9 mL/min (90-130) L 03/08/22 12:08 Glucose 132 mg/dL (65-115) H 03/08/22 12:08 Calculated Osmolality 286 mOsm/kg (285-295) 03/08/22 12:08 Calcium 9.8 mg/dL (8.5-10.5) 03/08/22 12:08 Total Bilirubin 0.5 mg/dL (0.15-1.2) 03/08/22 12:08 AST 29 U/L (0-32) 03/08/22 12:08 ALT 26 U/L (0-33) 03/08/22 12:08 Alkaline Phosphatase 123 U/L (35-105) H 03/08/22 12:08 Troponin T Baseline 9 ng/L (0-10) 03/08/22 12:08 Troponin T 120 Minute 8.44 ng/L (0-10) 03/08/22 14:12 Total Protein 7.5 g/dL (6.6-8.7) 03/08/22 12:08 Albumin 4.3 g/dL (3.5-5.2) 03/08/22 12:08 Globulin 3.2 g/dL (1.3-4.6) 03/08/22 12:08 EKG Data EKG 1: I personally reviewed and interpreted this EKG as follows: Interpretation: Initial resting EKG reveals normal sinus rhythm with occasional sinus arrhythmia. Normal ventricular rate of 82 bpm consistent with sinus. ER intervals normal. QTc intervals normal. She has diminished forces anterior precordial leads suggestive of possible remote anterior wall TX but no acute ST-T wave changes at this time. EKG 2: I personally reviewed and interpreted this EKG as follows: Interpretation: Second EKG this visit reveals a ventricular rate of 76 bpm consistent with sinus rhythm with occasional sinus arrhythmia. She has normal intervals, normal axis. No acute ST-T wave changes. No change from prior EKG this to this visit Discharge Plan Discharge Patient Disposition: Home Clinical Impression: Chest pain Condition: Stable Prescriptions: New nitroglycerin 0.4 mg tablet, sublingual 0.4 mg sublingual Q5M Qty: 60 0RF Rx Instructions: do not exceed 3 doses per episode No Action clopidogrel [Plavix] 75 mg tablet 75 mg PO DAILY Qty: 90 1RF (DME) lancets [OneTouch Delica Lancets] 33 gauge misc See Rx Instructions .ROUTE .MEDSUPPLY Qty: 100 0RF Rx Instructions: test once daily metoprolol succinate 25 mg tablet extended release 24 hr 25 mg PO QAM Qty: 90 0RF Rx Instructions: Must be seen for further refills citalopram 10 mg tablet 10 mg PO BEDTIME simvastatin 40 mg tablet 40 mg PO BEDTIME amitriptyline 150 mg tablet 150 mg PO BEDTIME metformin 1,000 mg tablet 1,000 mg PO BID Levemir FlexTouch U-100 Insuln 100 unit/mL (3 mL) insulin pen See Rx Instructions .ROUTE .COMPLEX Rx Instructions: 40 unit subcutaneously qam and 55 units hs levothyroxine 88 mcg tablet 88 mcg PO DAILY montelukast 10 mg Tablet 10 mg [facility] 1.[facility] mg/0.5 mL pen injector 1.5 mg SUBCUT Q7D Rx Instructions: On Sundays Discharge Orders: Discharge ED (Routine); Ordered 03/08/22 Ordered By: Raji Fuentes Referrals: Chantelle Mcgee [Primary Care Provider] - Discharge Diet: Usual diet Discharge Activity: Resume usual activity Patient Instructions: Opioid Safety, Pain Management Activity Restrictions/Additional Instructions: As we discussed your evaluation in the emergency department today did not find any evidence that you are having a heart attack or other acute cardiac issues. We have contacted case management to assist in getting your stress test scheduled this coming week. We have also provided prescription for nitroglycerin and as we discussed you should use that should you have any sustained chest pain for more than 5 minutes. If you develop prolonged chest pain as we discussed return to this or the nearest emergency department. Continue all your usual medications as prescribed. Coding Level of Care Code ED Telephone Maintenance Mechanic for Benigno Raymond Exam Comprehensive
--- NOTE | 2022-03-08 11:19 | XRR_ITS ---
PROCEDURE INFORMATION: Exam: XR Chest Exam date and time: 03/08/2022 12:24 PM Age: 56 years old Clinical indication: Pain; Chest pressure; Additional info: Cp TECHNIQUE: Imaging protocol: Radiologic exam of the chest. Views: 1 view. COMPARISON: CR XR chest 1V portable [id number] 03/17/2020 7:57 PM FINDINGS: Lungs: Unremarkable. No consolidation. Pleural spaces: Unremarkable. No pleural effusion. No pneumothorax. Heart/Mediastinum: Unremarkable. No cardiomegaly. Bones/joints: Unremarkable. XR/XR chest 1V portable [id number] IMPRESSION: No acute findings.
--- NOTE | 2022-03-08 12:03 | ECG_ITS ---
[facility] Test Date: 2022-03-08 Pat Name: Tonie Fish Department: Room: Gender: Female Signals Officer: : 1965 Requested By: Raji Fuentes Order Number: [id number] Dannie MD: Jamee Cardenas M.D. Measurements Intervals [place] Rate: 76 P: 15 [place]: 168 QRS: 6 QRSD: 82 T: 52 QT: 376 QTc: 425 Interpretive Statements SINUS RHYTHM WITH SINUS ARRHYTHMIA LOW QRS VOLTAGE IN PRECORDIAL LEADS [QRS DEFLECTION < 1.0 mV IN CHEST LEADS] MINIMAL VOLTAGE CRITERIA FOR LVH, CONSIDER NORMAL VARIANT [MEETS CRITERIA IN ONE OF: R(aVL), S(V1), R(V5), R(V5/V6)+S(V1)] NONSPECIFIC T-WAVE ABNORMALITY Compared to ECG 03/08/2022 10:46:19 Low QRS voltage now present T-wave abnormality now present Myocardial infarct finding no longer present Electronically Signed On 03-08-2022 15:14:10 BUSINESS REPORTER by Jamee Cardenas M.D. [id number]
[2022-03-08 12:30] LABS: Basophils # 0.1 10^3/uL (0.0-0.1); Basophils % 1.1 %; Eosinophils # 0.2 10^3/uL (0.0-0.8); Eosinophils % 3.4 %; Hematocrit 38.2 % (37.0-47.0); Hemoglobin 11.7 g/dL (11.5-15.3); Lymphocytes # 1.5 10^3/uL (0.8-4.8); Lymphocytes % 25.1 %; Mean Corpuscular HGB Conc 30.6 g/dL (30.0-36.0); Mean Corpuscular Hemoglobin 24.6 pg (28.0-34.0); Mean Corpuscular Volume 80.4 fl (81-99); Mean Platelet Volume 9.7 fL (7.4-10.4); Monocytes # 0.4 10^3/uL (0.2-0.9); Monocytes % 5.9 %; Neutrophils # 3.93 10^3/uL (1.8-7.7); Neutrophils % 64.2 %; Nucleated Red Blood Cells % 0 %; Platelet Count 264 10^3/cmm (130-400); Red Blood Count 4.75 10^6/uL (4.1-5.3); Red Cell Distribution Width 18.7 % (12.1-15.1); White Blood Count 6.1 10^3/uL (4.0-10.0)
[2022-03-08 12:54] LABS: Troponin(5th) Baseline 9 ng/L (0-10)
[2022-03-08 13:00] LABS: Alanine Aminotransferase 26 U/L (0-33); Albumin Level 4.3 g/dL (3.5-5.2); Alkaline Phosphatase 123 U/L (35-105); Anion Gap 16.2 (5-19); Aspartate Amino Transferase 29 U/L (0-32); Blood Urea Nitrogen 13 mg/dL (6-20); Calcium 9.8 mg/dL (8.5-10.5); Carbon Dioxide 27 mmol/L (22-29); Chloride 98 mmol/L (98-107); Creatinine Clr Calc Pharmacy 95.5178; Globulin 3.2 g/dL (1.3-4.6); Glomerular Filtration Rate 85.9 mL/min (90-130); Glucose 132 mg/dL (65-115); Osmolality Calculated 286 mOsm/kg (285-295); Potassium 4.2 mmol/L (3.5-5.1); Sodium 137 mmol/L (136-145); Total Bilirubin 0.5 mg/dL (0.15-1.2); Total Protein 7.5 g/dL (6.6-8.7)
--- NOTE | 2022-03-08 13:34 | ECG_ITS ---
[facility] Test Date: 2022-03-08 Pat Name: Tonie Fish Department: Room: Gender: Female Government Relations Manager: : 1965 Requested By: Raji Fuentes Order Number: [id number] Dannie MD: Jamee Cardenas M.D. Measurements Intervals [place] Rate: 75 P: 11 [place]: 167 QRS: 11 QRSD: 89 T: 53 QT: 375 QTc: 421 Interpretive Statements SINUS RHYTHM WITH SINUS ARRHYTHMIA MINIMAL VOLTAGE CRITERIA FOR LVH, CONSIDER NORMAL VARIANT [MEETS CRITERIA IN ONE OF: R(aVL), S(V1), R(V5), R(V5/V6)+S(V1)] NONSPECIFIC T-WAVE ABNORMALITY Compared to ECG 03/08/2022 12:03:33 No significant changes Electronically Signed On 03-08-2022 15:34:11 TOOTH CUTTER by Jamee Cardenas M.D. [id number]
[2022-03-08 13:44] VITALS: BP 175/92; PULSE 74
[2022-03-08 14:37] LABS: Troponin 5 2HR 8.44 ng/L (0-10)
[2022-03-08 15:14] VITALS: BP 177/90
[2022-03-08 15:22] LABS: Troponin 5 2HR Delta -0.56 ABS# (0-10)
[2022-03-08 15:31] VITALS: BP 128/71; PULSE 78
--- NOTE | 2022-03-10 08:21 | PC.SOCIAL ---
Consult Consults received to follow up on pending stress test, ordered 01/16/22. Spoke with Leslie in centralized scheduling. She states that they have authorization, approved last week. She will call patient with appointment date/time.
== END 2022-03-08 15:37 | disposition home or self-care (01) ==
PROVIDERS: Emergency Provider Emergency Medicine; PCP Registered Nurse
DX: R07.9 Chest pain, unspecified (principal); Z79.85 Long-term (current) use of injectable non-insulin antidiabetic drugs; Z79.84 Long term (current) use of oral hypoglycemic drugs; Z79.02 Long term (current) use of antithrombotics/antiplatelets; Z79.4 Long term (current) use of insulin; Z87.891 Personal history of nicotine dependence; E11.9 Type 2 diabetes mellitus without complications; I25.10 Atherosclerotic heart disease of native coronary artery without angina pectoris; E78.5 Hyperlipidemia, unspecified; I10 Essential (primary) hypertension
CPT/HCPCS: 36415; 71045; 80053; 84484; 85025; 93005; 99285

== ENCOUNTER 2022-03-31 07:02 | Outpatient (CLI) | payer MEDICAID, SELFPAY ==
--- NOTE | 2022-03-31 07:07 | ECG_ITS ---
[facility] Test Date: 2022-03-31 Pat Name: Tonie Fish Department: Room: Gender: Female Market Development Executive: : 1965 Requested By: Chriss Arvizu Order Number: [id number] Dannie MD: Chriss Arvizu M.D. Interpretive Statements NAME OF STUDY: LEXISCAN SESTAMIBI STRESS TEST INDICATION: [Chest Pain, ] Procedure: At the baseline, the blood pressure was 126/82 mmHg with a heart rate of 95 bpm. The electrocardiogram showed normal sinus rhythm, normal axis with normal ST and T's. The Lexiscan was infused over a period of 20 seconds. A total of 0.4 mg of Lexiscan was infused. The stress phase was continued for a total of 5 minutes. Heart rate was at the end of stress phase was 109 bpm and a blood pressure of 124/75 mmHg. The EKG at the peak infusion revealed normal sinus rhythm with no significant ST-T wave changes. Sestamibi was injected 20 seconds after the Lexiscan infusion. Blood pressure at the end of recovery phase was 120/74 mmHg with a heart rate of 107 bpm. Conclusion: 1. Normal EKG response to Lexiscan infusion 2. No Lexiscan induced chest pain or cardiac arrhythmia. 3. Normal blood pressure and heart rate response. 4. Sestamibi/sestamibi perfusion scan pending; see separate report. Electronically Signed On 04-20-2022 13:13:07 BUFFING MACHINE OPERATOR SEMIAUTOMATIC by Chriss Arvizu M.D. [id number]
--- NOTE | 2022-03-31 07:08 | NMCV_ITS ---
NM ness perf SPECT r/s* [id number] Tonie Fish Age: 56 Gender: F : 1965 Exam Date: 03/31/2022 07:45 Ordering Phys: Chriss Arvizu M.D ([email or web address]) Technologist: MONTY Storey Exam Location: [facility] Indications: Chest pain STRESS TEST [facility] IMAGE PROTOCOL Rest/Stress 1 Lexiscan Day Radiopharmaceutical Dose (mCi) Administration Site Administered by Rest: Tc-99m 10.3 IV MONTY Dean Sestamibi Stress:Tc-99m 32.7 IV MONTY Dean Sestamibi Rest: 31-Mar-2022 60 Discovery 630 Stress: 31-Mar-2022 30 Discovery 630 0.4mg Lexiscan. Images obtained in supine and prone position. SPECT RESULTS Technical Quality: Excellent Raw Data Analysis: Breast attenuation, Adequate Image Corrections: No attenuation or motion correction applied Summed Stress Score: 8 Summed Rest Score: 5 Summed Difference Score: 5 PERFUSION FINDINGS There is a medium sized partially reversible perfusion defect in the apical and apical anterior quigley. This is consistent with medium sized area of prior infarct in the LAD territory with significant lou-infarct ischemia. Medium to large sized area of mostly reversible perfusion defect seen in the lateral and anterolateral quigley. This is consistent with prior infarct in left circumflex artery territory with significant area of ischemia. FUNCTIONAL RESULTS (calculated via Gated SPECT) Stress Image LV EF (%): 55 Stress EDV (mL):92 TID: 1.05 Stress ESV (mL):41 FUNCTIONAL FINDINGS: There is normal left ventricular systolic function. IMPRESSIONS 1. Abnormal myocardial perfusion imaging. Medium sized prior infarct seen in LAD territory with significant lou-infarct ischemia. 2. Medium to large sized area of mostly reversible perfusion defect seen in left circumflex artery territory. This is consistent with small sized infarct with medium to large sized area of ischemia in left circumflex artery territory. 3. LV systolic function is normal Chriss Arvizu MD (Electronically Signed) Final Date: 02 April 2022 10:35 S
[2022-03-31 07:15] VITALS: BMI 39.1
[2022-03-31] MEDS: regadenoson 0.4 Mg/5 ml Syringe IVP (08:37)
[2022-03-31 08:55] VITALS: BP 120/74; PULSE 102
== END 2022-03-31 07:03 | disposition home or self-care (01) ==
LOC: CDL 07:04
PROVIDERS: PCP Registered Nurse; Visit Provider Internal Medicine
DX: R07.9 Chest pain, unspecified (principal); R06.02 Shortness of breath
CPT/HCPCS: 36415; 78452; 93017; 96374; A9500; J2785

== ENCOUNTER 2022-04-23 07:13 | Outpatient (CLI) | payer MEDICAID, SELFPAY ==
[2022-04-23] VITALS (64 sets, daily range): BP systolic 90–122; BP diastolic 60–89; PULSE 86–105; RESP 10–26; TEMP 36.6–37.3; O2SAT 93–99; BMI 39.1; BMI 39.3
[2022-04-23] MEDS: diphenhydrAMINE 50 mg Capsule PO (07:33)
[2022-04-23 07:53] LABS: Basophils # 0.1 10^3/uL (0.0-0.1); Eosinophils # 0.2 10^3/uL (0.0-0.8); Eosinophils % 2.8 %; Hematocrit 39.1 % (37.0-47.0); Hemoglobin 12.4 g/dL (11.5-15.3); Lymphocytes # 2.4 10^3/uL (0.8-4.8); Lymphocytes % 28.1 %; Mean Corpuscular HGB Conc 31.7 g/dL (30.0-36.0); Mean Corpuscular Hemoglobin 26.1 pg (28.0-34.0); Mean Corpuscular Volume 82.3 fl (81-99); Mean Platelet Volume 9.5 fL (7.4-10.4); Monocytes # 0.6 10^3/uL (0.2-0.9); Monocytes % 7.2 %; Neutrophils # 5.22 10^3/uL (1.8-7.7); Neutrophils % 60.6 %; Nucleated Red Blood Cells % 0 %; Platelet Count 342 10^3/cmm (130-400); Red Blood Count 4.75 10^6/uL (4.1-5.3); Red Cell Distribution Width 15.5 % (12.1-15.1); White Blood Count 8.6 10^3/uL (4.0-10.0)
[2022-04-23 08:00] LABS: Glucose Point of Care 205 mg/dL (70-110)
[2022-04-23 08:14] LABS: Anion Gap 14.3 (5-19); Blood Urea Nitrogen 22 mg/dL (6-20); Calcium 9.8 mg/dL (8.5-10.5); Carbon Dioxide 27 mmol/L (22-29); Chloride 100 mmol/L (98-107); Glomerular Filtration Rate 73.4 mL/min (90-130); Glucose 214 mg/dL (65-115); Osmolality Calculated 294 mOsm/kg (285-295); Potassium 4.3 mmol/L (3.5-5.1); Sodium 137 mmol/L (136-145)
--- NOTE | 2022-04-23 08:30 | XACV_ITS ---
Exam Room: 2 Ht: 157 cm Wt: 97 kg BSA: 2.11 m2 Gender: Female : 1965 Any Known Allergies: No known allergies Exam Priority: Routine Procedure(s): Procedure Description: Diagnostic procedure Procedure Description: PCI procedure Procedure Description: Drug Eluting Coronary Stent Procedure Description: PTCA Procedure Description: Miscellaneous Procedure Description: ACT Procedure Description: Coronary Angiography Procedure Description: Pressure Wire Diagnostic Cath Status: Elective Diagnostic Findings * INDICATION: Worsening angina/ abnormal stress test. * Left Main has no significant disease. * Left Anterior Descending has no significant disease. Patent prior proximal stents present. * Circumflex has no significant disease. * Proximal Right Coronary Artery: obstructive 60-70% stenosis, CHER: 3 flow. Distal RCA right before the PDA ostium has a severe 70-80% stenosis. * Posterior Descending Right: ostially has significant 80% stenosis, CHER: 3 flow. * Coronary angiography shows right dominance. PCI Status: Elective PCI Indication: Other Interventional Findings * Procedure detail: We engaged RCA with JR4 guide catheter. IV heparin was administered to maintain ACT above 250 seconds. iFR wire was advanced through the JR4 guide catheter. It was equalized and then advanced past the proximal RCA moderate to severe stenosis. iFR value of 0.86 was obtained. We then switched to run-through guidewire. It was advanced into PDA branch. Distal RCA to PDA was dilated with 2.5 x 12 mm semicompliant balloon. Same balloon was used to predilate proximal RCA stenosis. We then placed at 2.75 x 15 mm resolute Viktor drug-eluting stent in the proximal RCA. Another stent 2.5 x 12 mm resolute Viktor was put in distal RCA into PDA. At this time final angiogram was performed that showed excellent stent expansion, no residual stenosis and CHER-3 flow. Guidewire and guide catheter were removed. Patient left the Dock Operator in a stable condition.. * Proximal Right Coronary Artery: 70% stenosis treated with a AB TREK 2.50X12 RX BALLOON, and MDT R VIKTOR 2.75X15 SONYA. 0% residual stenosis, CHER: 3 flow. * Posterior Descending Right: 80% stenosis treated with a AB TREK 2.50X12 RX BALLOON, and MDT R VIKTOR 2.5X12 SONYA. 0% residual stenosis, CHER: 3 flow. Conclusions 1. Moderate to severe proximal RCA stenosis. Ischemia confirmed with iFR value of 0.86 s/p successful revascularization with SONYA x1. Severe distal RCA to PDA stenosis s/p successful revascularization with SONYA x 1. . 2. Proximal Right Coronary Artery was treated with a Balloon, and Drug Eluting Stent. 3. Posterior Descending Right was treated with a Balloon, and Drug Eluting Stent. Recommendations * Aggressive risk factor modification. * Aspirin Plavix for at least 1 year. * High intensity statin therapy. * Outpatient cardioology follow up in 4 weeks. Interventional RX Recommendation: PCI w/o planned CABG Diagnostic RX Recommendation: PCI w/o planned CABG Anticoagulation: Heparin Pressures Phase:Rest AO : 70 / 51 ( 57 ) @ 9:42:00 AM 85 / 57 ( 72 ) @ 9:59:00 AM Clinical Evaluation EBL: 5mL-10mL Procedural Details Procedure Consent Obtained. Pre-Procedure Time Out. Identified patient by full name and date of as verbalized by the patient/guarantor. Does the consent match the physician's order: Yes. Accurate & Complete Informed Consent: Yes. Inpatient/Outpatient History & Physical on Chart: Yes. If H&P is completed, is and addenduem needed: Yes; If yes, is the addendum complete: Yes. Visualize and Verify Site with Patient/Guarantor: N/A. Relevant Radiology Images available: N/A. The risks, benefits, and alternatives of sedation and/or procedure were discussed by physician. The patient agrees to continue. Procedure started. [facility] Clinical Fraility Score: 3: Managing Well. Dock Operator Indications: Worsening Angina. Chest Pain Symptom Assessment: Typical Angina Symptoms. Correct patient, site and procedure confirmed by cath team. Current diagnosis: Chest Pain, Abnormal stress test. PERRLA. Strong, equal hand cash management coordinator bilaterally. Lungs clear x 5 lobes. IV Site on Arrival: 18 gauge in the right anticubital. IV Fluids: 0.9% NaCl at KVO. 0 mL infused prior to lab rep. Pre Procedural Pulses: bilateral dorsalis pedis was 3+. Pre Procedural Pulses: bilateral posterior tibial was 3+. Pre Procedural Pulses: bilateral radial was 3+. Oxygen started at 2liters/min via nasal canula. right groin was prepped with chloroprep then draped in the usual sterile fashion. Baseline sample Acquired. HR: 94 BPM. Physician notified. Physician arrived. Admit Source: Out Patient. Physician scrubbed in. Immediate Pre-Procedure Time Out. Correct Patient: Yes; Correct Procedure: Yes; Correct Site: Yes; Correct Patient Position: Yes; Correct Supplies: Yes; Dried Flammable Prep: Yes; Blood Products Available: No;. Lidocaine 1% infiltrated to the right groin. Arterial access obtained with micropuncture set. A 5 belarusian JL4 catheter in over wire. Multiple views taken of left coronary artery. Catheter removed over the standard wire. A 5 belarusian JR4 catheter in over wire. Multiple views taken of right coronary artery. Catheter removed over the standard wire. Sheath upsized to a 6 Fr. 6 belarusian JR 4 SH guide catheter was inserted over the wire. iFR pressure wire advanced through guide catheter to lesion in proximal RCA. iFR pressure wire advanced across lesion, seated in distal RCA. iFR pressure measurements obtained. iFR results 0.86. iFR pressure wire out. Runthrough guidewire was advanced through the guide catheter to lesion in the prox RCA. Guidewire advanced across lesion. Angiography performed. ACT drawn. Results out of range, ACT redrawn. Therapeutic limits - pre-heparin administration 90-150 seconds and monitoring heparin during a vascular procedure >250 seconds. Balloon inserted to lesion in the PDA. Inflation number : 1 A AB TREK 2.50X12 RX BALLOON was prepped and advanced across the R PDA , then inflated to 12 AVERY for 0:13 seconds. Inflation number: 1 The AB TREK 2.50X12 RX BALLOON was reinflated across the Prox RCA, to 12 AVERY for 0:17 seconds. Balloon out. Inflation Number : 2 A MDT R VIKTOR 2.75X15 SONYA -Lot Number# [id number] was prepped and advanced across the Prox RCA. The stent was deployed at 12 AVERY for 0:17 seconds. EXP 03-03-24. Stent balloon out over wire. ACT drawn. Results 469 seconds. Therapeutic limits - pre-heparin administration 90-150 seconds and monitoring heparin during a vascular procedure >250 seconds. Stent inserted to lesion in the PDA. Inflation Number : 2 A MDT R VIKTOR 2.5X12 SONYA -Lot Number#[id number] was prepped and advanced across the R PDA. The stent was deployed at 12 AVERY for 0:16 seconds. EXP 02-12-24. Stent balloon and wire out. Angiography perfomed, checking results. Guide catheter out. A Right femoral angiogram with contrast hand injection through sheath was performed to determine safe placement of closure device. A Angio-Seal VIP ([employer] Matt) was successful obtaining hemostatsis at the Right Femoral artery insertion site. LOT # [id number]. EXP . Physician scrubbed out. Angioseal placed without complications. No signs or symptoms of hematoma noted. Sterile dressing applied per usual sterile fashion. Post Procedure: Pulses reassessed and unchanged. PERRLA. Strong, equal hand cash management coordinator bilaterally. No VTE prophylaxis required. Medication's Wasted: Heparin = 2000 unit. Medication's Wasted: Other = Versed 2 mg. Medication's Wasted: Other = Fentanyl 25 mcg. Total IV fluids: 328 mL. Post-op diagnosis: Severe proximal RCA stenosis, Severe ostial PDA stenosis. Complications: None. Estimated blood loss: 5mL-10mL. Responsiveness - Normal response to verbal stimuli; alert and oriented, PERRLA. Airway - Unaffected, no intervention required; spontaneous ventilation. Circulation: W/N/L, pulses unchanged. Nausea/Vomiting: N/A. Procedure completed. Patient transferred by bed to CPRU. Vital chart was stopped. Access Site Site: Right Femoral artery Sheath Size: 5 Fr Hemostasis Method: Angio-Seal VIP ([employer]. Matt) Hemostasis Success: Successful Procedure Medications Start: 9:25 AM Stop: 9:25 AM Medication: Versed Amount: 1 mg Route: I.V. Start: 9:25 AM Stop: 9:25 AM Medication: Fentanyl Amount: 50 mcg Route: I.V. Start: 9:34 AM Stop: 9:34 AM Medication: Versed Amount: 1 mg Route: I.V. Start: 9:42 AM Stop: 9:42 AM Medication: 0.9% Saline Amount: 250 ml Route: I.V. bolus Start: 9:52 AM Stop: 9:52 AM Medication: Heparin Amount: 9000 units Route: I.V. Start: 10:12 AM Stop: 10:12 AM Medication: Fentanyl Amount: 25 mcg Route: I.V. Start: 10:19 AM Stop: 10:19 AM Medication: Plavix Amount: 300 mg Route: P.O. Start: 10:19 AM Stop: 10:19 AM Medication: Aspirin Amount: 325 mg I, the attending physician, have reviewed and verified all procedure medications. Yes, all medications given per verbal order History/Risk Factors Hypertension: Yes Dyslipidemia: Yes Peripheral Arterial Disease (PAD): No Myocardial Infarction (WA): Yes Obesity: Yes Renal Disease: No Tobacco Use: Former Prior Interventions PCI: Yes CABG: No Valve Surgery: No Date of PCI: 12/19/2020 Report Signatures Finalized by Chriss Arvizu MD on 04/23/2022 03:10 PM
--- NOTE | 2022-04-23 10:54 | SUR.EXTENDED ---
1030: received the patient back from the microbiology lab analyst s/p PCI of the Proximal RCA and ostial PDA via cot. patient alert and oriented x 3. cardiac rehabilitation program director placed and vital signs obtained. right femoral access site soft with no bleeding or hematoma noted. Angioseal closed device was used. bedrest x 4 hours. (patient can ambulate at 1430). Finance, Gerardo, at bedside. no other assessment changes noted from pre cath assessment noted. post Angioseal activity instructions given to the patient and her finance. they both verbalized their understanding. plan to transfer to [facility] when room clean.
--- NOTE | 2022-04-23 11:43 | P.HP_ITS ---
Same Day Surgery H&P Indication for Procedure/HPI DATE OF PROCEDURE: April 23, 2022 CHIEF COMPLAINT/INDICATIONFOR SURGICAL PROCEDURE: Worsening shortness of breath and chest pain/ abnormal stress test PREOP DIAGNOSIS: Worsening of shortness of breath chest pain/abnormal stress test PLANNED PROCEDURE: Operation Date: 04/23/22 08:30 Proposed Procedures p Left Heart Cath 28792,R94.39,R07.9(Left) - Chriss Arvizu M.D Possible percutaneous coronary intervention 57-year-old woman with past medical history of coronary artery disease, diabetes and hypertension who has been having worsening chest discomfort and shortness of breath symptoms. She was recently seen in the emergency room. She underwent stress test that was abnormal. Plan for coronary angiogram with possible percutaneous coronary intervention ROS CONSTITUTIONAL: No fever chills weight loss or gain or night sweats. [] HEENT: Normocephalic, atraumatic.[] RESPIRATORY: Shortness of breath CARDIOVASCULAR:Has chest pain and shortness of breath GI: no nausea vomiting diarrhea. [] CUSTOMER SOLUTIONS ARCHITECT: No numbness, tingling, weakness or loss of function in any part of the body. [] MUSCULOSKELETAL: No knee or joint pain or rashes. [] Medications/Allergies* Home Medications Medication Instructions Recorded Confirmed Type citalopram 10 mg tablet 10 mg PO BEDTIME 10/05/19 04/23/22 History simvastatin 40 mg tablet 40 mg PO BEDTIME 10/05/19 04/23/22 History amitriptyline 150 mg tablet 150 mg PO BEDTIME 12/20/20 04/23/22 History insulin detemir U-100 100 unit/mL See Rx Instructions .Route 12/20/20 04/23/22 History (3 mL) subcutaneous pen (Levemir .COMPLEX see pharmacy comments FlexTouch U-100 Insulin) metformin 1,000 mg tablet 1,000 mg PO BID 12/20/20 04/23/22 History dulaglutide 1.5 mg/0.5 mL 1.5 mg SUBCUT Q7D 03/08/22 04/23/22 History subcutaneous pen injector (Trulicity) levothyroxine 88 mcg tablet 88 mcg PO DAILY 03/08/22 04/23/22 History montelukast 10 mg tablet 10 mg PO DAILY 03/08/22 04/23/22 History Allergies/Adverse Reactions Allergy/AdvReac Type Severity Reaction Status Date / Time No Known Allergies Allergy Verified 04/22/22 08:48 Current Medications: Generic Name Dose Route Start Last Admin Trade Name Alma PRN Reason Stop Dose Admin Sodium Chloride 1,000 mls @ 50 mls/hr 04/23/22 07:30 04/23/22 07:33 Sodium Chloride 0.9% IV 04/24/22 03:29 Not Given .Q20H ONE Pertinent History/Comorbid Conditions* Medical History (Updated 03/08/22 @ 14:58 by Raji Fuentes DO) Anemia Improved after transfusion 2 units. Hemoglobin 8.0 on discharge. Anxiety and depression Arthritis Bacterial vaginosis Coronary artery disease Had stent 03/2019 Depression Deviated septum Diabetes Disorder of left eustachian tube Hyperlipidemia Hypertension Hypothyroid Otalgia of both ears Pain, joint, knee, right Right lower quadrant abdominal pain Right ovarian cyst Uterine fibroid Surgical History (Updated 07/26/21 @ 13:29 by Lacey Chinchilla MD) H/O colonoscopy (05/15/20) History of nasal cauterization History of total left knee replacement History of total right knee replacement (~11/2017) History of tubal ligation Hx of heart artery stent (~03/2019) Family History (Updated 06/17/19 @ 13:41 by Karena Alaniz LPN) Diabetes Mother Brother Heart disease Brother Father Hypercholesteremia Brother Uterine cancer Sister Social History Smoking and tobacco status: former smoker Quit status (tobacco): has quit using tobacco Year quit tobacco: age 14 Alcohol intake: never Marital status: History of recent travel: No Pertinent Exam Findings alert, oriented x 3, clear to auscultation bilaterally and regular rate & rhythm Conscious Sedation Assessment PATIENT ASSESSED PRIOR TO SEDATION, WITH NO CHANGE NOTED: Yes AIRWAY EVAL/ANESTHESIA PLAN: normal airway, ASA III, Local Anesthesia, Risks, benefits & alternatives of sedation and/or procedure discussed and Patient agrees to continue as planned ADDITIONAL INFORMATION: Moderate sedation Recommendations Surgery/Procedure today (Left heart cath with possible percutaneous coronary intervention) Coding Level of Care Code Acute Control Systems Developer for Benigno Raymond
--- NOTE | 2022-04-23 11:43 | SUR.EXTENDED ---
patient transferred via bed to room 101
--- NOTE | 2022-04-23 11:59 | PC.NURSE ---
Patient brought to floor at 1139 via catheterization laboratory technician. Patient doing well. No hematoma noted. Drainage noted on gauze pad. Report received from Elis Carpio RN, catheterization laboratory technician.
[2022-04-23 16:49] LABS: Glucose Point of Care 183 mg/dL (70-110)
[2022-04-23] MEDS: sodium chloride 0.9% 1,000 ML 100 ML IV (17:31)
[2022-04-23] MEDS: insulin lispro 100 unit/1 mL SUBCUT ×2 (17:32→20:50)
[2022-04-23 20:43] LABS: Glucose Point of Care 189 mg/dL (70-110)
[2022-04-24] VITALS: BP 125/86; PULSE 88; RESP 14; TEMP 37.4; O2SAT 95
[2022-04-24] MEDS: sodium chloride 0.9% 1,000 ML 100 ML IV (00:34)
[2022-04-24 03:11] LABS: Basophils # 0.1 10^3/uL (0.0-0.1); Eosinophils # 0.3 10^3/uL (0.0-0.8); Eosinophils % 3.4 %; Hematocrit 36.6 % (37.0-47.0); Hemoglobin 11.5 g/dL (11.5-15.3); Lymphocytes # 1.8 10^3/uL (0.8-4.8); Lymphocytes % 24.7 %; Mean Corpuscular HGB Conc 31.4 g/dL (30.0-36.0); Mean Corpuscular Volume 82.6 fl (81-99); Mean Platelet Volume 9.9 fL (7.4-10.4); Monocytes # 0.6 10^3/uL (0.2-0.9); Monocytes % 7.9 %; Neutrophils # 4.59 10^3/uL (1.8-7.7); Neutrophils % 62.5 %; Nucleated Red Blood Cells % 0 %; Platelet Count 286 10^3/cmm (130-400); Red Blood Count 4.43 10^6/uL (4.1-5.3); White Blood Count 7.3 10^3/uL (4.0-10.0)
[2022-04-24 03:41] LABS: Anion Gap 13.2 (5-19); Blood Urea Nitrogen 18 mg/dL (6-20); Calcium 9.6 mg/dL (8.5-10.5); Carbon Dioxide 27 mmol/L (22-29); Chloride 100 mmol/L (98-107); Glomerular Filtration Rate 73.4 mL/min (90-130); Glucose 177 mg/dL (65-115); Osmolality Calculated 288 mOsm/kg (285-295); Potassium 4.2 mmol/L (3.5-5.1); Sodium 136 mmol/L (136-145)
[2022-04-24 04:00] VITALS: TEMP 37
[2022-04-24 04:14] VITALS: BP 129/83; PULSE 83; RESP 15; O2SAT 93
[2022-04-24] MEDS: metoprolol succinate ER (24 HR) 25 mg Tablet PO (05:10)
[2022-04-24 05:55] VITALS: PULSE 90
[2022-04-24 06:47] LABS: Glucose Point of Care 188 mg/dL (70-110)
[2022-04-24 07:29] VITALS: BP 134/88; PULSE 85; RESP 20; O2SAT 94
--- NOTE | 2022-04-24 08:15 | PM.DCS ---
Discharge Providers Date of Admission: 04/23/22 13:00 Date of Discharge: April 24, 2022 Attending Provider at Admission: Chriss Arvizu M.D Attending Provider at Discharge: Chriss Arvizu M.D Primary Care Provider: Chantelle Mcgee Reason for Visit Reason for Visit: R94.39 Brief History: 57-year-old woman with past medical history of coronary artery disease, diabetes and hypertension who has been having worsening chest discomfort and shortness of breath symptoms.? She was recently seen in the emergency room.? She underwent stress test that was abnormal.? Plan for coronary angiogram with possible percutaneous coronary intervention Hospital Course Hospital Course Patient's coronary angiogram showed severe distal RCA to ostial RPDA/stenosis that underwent successful revascularization with SONYA x1. Patient also had moderate to severe proximal RCA stenosis that was confirmed to be ischemic with IFR value of 0.86. He underwent successful revascularization with SONYA x1. Overnight she stayed stable. She will be started on aspirin. She is already taking Plavix. With history of anemia, we will monitor CBC in the future. Physical Exam Narrative: GENERAL: Patient is alert, awake and oriented x3. [] NECK: No jugular vein distension. [] HEENT: No cyanosis. No icterus. No pallor. [] HEART: Regular S1 and S2. No murmur, rub or gallop. [] LUNGS: Clear to auscultate bilaterally. [] ABDOMEN: Soft, nontender and nondistended. Positive bowel sounds. No guarding, rebound or tenderness. [] CENTRAL NERVOUS SYSTEM: Grossly nonfocal. [] EXTREMITIES: Lower extremities with 1+ edema bilaterally. Pulses palpable in the lower extremities, both dorsalis pedis and posterior tibial. [] Discharge Data Studies Completed and Pending Completed Studies During Hospitalization Category Date Time Status ELECTRICIAN SUBSTATION SUPERVISOR request for service Routine Exams 04/23/22 08:30 Completed Laboratory Results WBC 7.3 10^3/uL (4.0-10.0) 04/24/22 02:15 RBC 4.43 10^6/uL (4.1-5.3) 04/24/22 02:15 Hgb 11.5 g/dL (11.5-15.3) 04/24/22 02:15 Hct 36.6 % (37.0-47.0) L 04/24/22 02:15 MCV 82.6 fl (81-99) 04/24/22 02:15 MCH 26.0 pg (28.0-34.0) L 04/24/22 02:15 MCHC 31.4 g/dL (30.0-36.0) 04/24/22 02:15 RDW 16.0 % (12.1-15.1) H 04/24/22 02:15 Plt Count 286 10^3/cmm (130-400) 04/24/22 02:15 MPV 9.9 fL (7.4-10.4) 04/24/22 02:15 Neut % (Auto) 62.5 % 04/24/22 02:15 Lymph % (Auto) 24.7 % 04/24/22 02:15 [place] % (Auto) 7.9 % 04/24/22 02:15 Eos % (Auto) 3.4 % 04/24/22 02:15 Baso % (Auto) 1.0 % 04/24/22 02:15 Neut # (Auto) 4.59 10^3/uL (1.8-7.7) 04/24/22 02:15 Lymph # (Auto) 1.8 10^3/uL (0.8-4.8) 04/24/22 02:15 [place] # (Auto) 0.6 10^3/uL (0.2-0.9) 04/24/22 02:15 Eos # (Auto) 0.3 10^3/uL (0.0-0.8) 04/24/22 02:15 Baso # (Auto) 0.1 10^3/uL (0.0-0.1) 04/24/22 02:15 Nucleated RBC % (auto) 0 % 04/24/22 02:15 Nucleated RBCs # 0.0 /100WBC 04/24/22 02:15 Sodium 136 mmol/L (136-145) 04/24/22 02:15 Potassium 4.2 mmol/L (3.5-5.1) 04/24/22 02:15 Chloride 100 mmol/L (98-107) 04/24/22 02:15 Carbon Dioxide 27 mmol/L (22-29) 04/24/22 02:15 Anion Gap 13.2 (5-19) 04/24/22 02:15 BUN 18 mg/dL (6-20) 04/24/22 02:15 Creatinine 0.8 mg/dL (0.5-0.9) 04/24/22 02:15 GFR Calculation 73.4 mL/min (90-130) L 04/24/22 02:15 Glucose 177 mg/dL (65-115) H 04/24/22 02:15 POC Glucose 188 mg/dL (70-110) H 04/24/22 06:03 Calculated Osmolality 288 mOsm/kg (285-295) 04/24/22 02:15 Calcium 9.6 mg/dL (8.5-10.5) 04/24/22 02:15 Vitals Last Vital Signs Temp 98.6 F 04/24/22 04:00 Pulse 85 04/24/22 07:29 Resp 20 H 04/24/22 07:29 BP 134/88 04/24/22 07:29 Pulse Ox 94 04/24/22 07:29 O2 Del Method 04/24/22 00:00 Discharge Plan Discharge Patient Disposition: Home Condition: Stable Prescriptions: New aspirin 81 mg Tablet,Delayed Release (Dr/Ec) 81 mg PO DAILY Qty: 90 2RF Continued clopidogrel [Plavix] 75 mg tablet 75 mg PO DAILY Qty: 90 1RF (DME) lancets [OneTouch Delica Lancets] 33 gauge misc See Rx Instructions .ROUTE .MEDSUPPLY Qty: 100 0RF Rx Instructions: test once daily metoprolol succinate 25 mg tablet extended release 24 hr 25 mg PO QAM Qty: 90 0RF Rx Instructions: Must be seen for further refills citalopram 10 mg tablet 10 mg PO BEDTIME simvastatin 40 mg tablet 40 mg PO BEDTIME amitriptyline 150 mg tablet 150 mg PO BEDTIME Levemir FlexTouch U-100 Insuln 100 unit/mL (3 mL) insulin pen See Rx Instructions .ROUTE .COMPLEX Rx Instructions: 40 unit subcutaneously qam and 55 units hs levothyroxine 88 mcg tablet 88 mcg PO DAILY montelukast 10 mg Tablet 10 mg PO DAILY Trulicity 1.5 mg/0.5 mL pen injector 1.5 mg SUBCUT Q7D Rx Instructions: On Sundays nitroglycerin 0.4 mg tablet, sublingual 0.4 mg sublingual Q5M Qty: 60 0RF Rx Instructions: do not exceed 3 doses per episode Held metformin 1,000 mg tablet 1,000 mg PO BID Hold Instructions: Resume on 04/25/22. Discharge Orders: Discharge Order (Routine); Ordered 04/24/22 Ordered By: Chriss Arvizu Referrals: Chriss Arvizu M.D [Physician] - 2 months Sachi Boyle FNP [Nurse Practitioner] - 7-10 days Discharge Diet: Cardiac and Diabetic Discharge Activity: Increase activity as tolerated Patient Instructions: Opioid Safety, Coronary Angioplasty (DC) Discharge Attestations Time Spent in Discharge Care*: less than 30 min Quality Metrics Clinical Quality Measures [ No reported AMI, CVA or VTE this stay] Coding Level of Care Code Acute Chg FW DC note
[2022-04-24 08:34] VITALS: BP 134/88; PULSE 92; O2SAT 93
[2022-04-24] MEDS: levothyroxine 88 mcg Tablet PO (09:25)
[2022-04-24] MEDS: clopidogrel 75 mg Tablet PO (09:25)
[2022-04-24] MEDS: insulin lispro 100 unit/1 mL SUBCUT (09:25)
[2022-04-24] MEDS: aspirin 81 mg EC Tablet PO (09:25)
== END 2022-04-24 10:11 | disposition home or self-care (01) ==
LOC: CCL 07:16 → CSU 04-24 01:41
PROVIDERS: PCP Registered Nurse; Visit Provider Internal Medicine
DX: I25.10 Atherosclerotic heart disease of native coronary artery without angina pectoris (principal); I10 Essential (primary) hypertension; E78.5 Hyperlipidemia, unspecified; I25.2 Old myocardial infarction; E66.9 Obesity, unspecified; Z68.39 Body mass index [BMI] 39.0-39.9, adult; Z87.891 Personal history of nicotine dependence
CPT/HCPCS: 36415; 36416; 80048; 82962; 85025; 85347; 93454; 93571; 96361; 96365; 96372; 99152; 99153; C1725; C1760; C1769; C1874; C1887; C1894; C9600; G0269; J1644; J1815; J2250; J3010; J7030; Q0163; Q9967

== ENCOUNTER → 2022-05-07 12:16 | Outpatient (BNVA) | payer MEDICAID, SELFPAY | PROVIDERS: PCP Registered Nurse; Visit Provider Nurse Practitioner Family | DX: I25.10 Atherosclerotic heart disease of native coronary artery without angina pectoris (principal); I10 Essential (primary) hypertension; Z87.891 Personal history of nicotine dependence | CPT/HCPCS: 80048; 99214 ==

== ENCOUNTER 2022-07-02 13:50 | Outpatient (CLI) | payer MEDICAID, SELFPAY ==
--- NOTE | 2022-07-02 14:04 | MM_ITS ---
WS: [id number] BILATERAL 3D TOMOSYNTHESIS DIGITAL SCREENING MAMMOGRAPHY WITH CAD CLINICAL INFORMATION: SCREENING HISTORY: Screening mammogram. No current complaints. COMPARISON: 2020 TECHNIQUE: Bilateral CC and MLO views. FINDINGS: Scattered fibroglandular densities bilaterally. No suspicious focal mass, asymmetry, calcifications, or architectural distortion. No evidence of malignancy. Stable punctate and lucent centered calcifica tions. MM/[place] [id number] IMPRESSION: BI-RADS: 2-Benign FOLLOW UP: 1 Year Follow-up Recommend return to annual screening mammography.
== END 2022-07-02 13:51 | disposition home or self-care (01) ==
LOC: RAD 13:52
PROVIDERS: PCP Registered Nurse; Visit Provider Registered Nurse
DX: Z12.31 Encounter for screening mammogram for malignant neoplasm of breast (principal)
CPT/HCPCS: 77063; 77067

== ENCOUNTER → 2022-07-07 13:47 | Outpatient (BNVA) | payer MEDICAID, SELFPAY | PROVIDERS: PCP Registered Nurse; Referring Provider Registered Nurse; Visit Provider Student in an Organized Health Care Education/Training Program | DX: M65.331 Trigger finger, right middle finger (principal) | CPT/HCPCS: 20600; 73130; 99204; J3301 ==

== ENCOUNTER → 2022-07-23 14:24 | Outpatient (BNVA) | payer MEDICAID, SELFPAY | PROVIDERS: PCP Registered Nurse; Visit Provider Internal Medicine | DX: I25.10 Atherosclerotic heart disease of native coronary artery without angina pectoris (principal); I10 Essential (primary) hypertension; R07.89 Other chest pain; Z87.891 Personal history of nicotine dependence; Z79.82 Long term (current) use of aspirin | CPT/HCPCS: 99214 ==

== ENCOUNTER → 2023-01-21 12:52 | Outpatient (BNVA) | payer MEDICAID, SELFPAY | PROVIDERS: PCP Registered Nurse; Visit Provider Internal Medicine | DX: I25.10 Atherosclerotic heart disease of native coronary artery without angina pectoris (principal); I10 Essential (primary) hypertension; R07.9 Chest pain, unspecified; Z87.891 Personal history of nicotine dependence | CPT/HCPCS: 99214 ==

== ENCOUNTER → 2023-07-22 13:31 | Outpatient (BNVA) | payer MEDICAID, SELFPAY | PROVIDERS: PCP Registered Nurse; Visit Provider Internal Medicine | DX: I25.10 Atherosclerotic heart disease of native coronary artery without angina pectoris (principal); I10 Essential (primary) hypertension; R07.9 Chest pain, unspecified; Z87.891 Personal history of nicotine dependence; Z79.82 Long term (current) use of aspirin | CPT/HCPCS: 99213 ==

== ENCOUNTER 2024-02-13 09:25 | Emergency (ER) | payer MEDICAID, SELFPAY ==
[2024-02-13 10:00] VITALS: BP 128/86; PULSE 101; RESP 16; TEMP 36.8; O2SAT 95; BMI 37.6
--- NOTE | 2024-02-13 10:15 | W.ED.CHESTPA ---
HPI - Chest Pain General: Chief Complaint: Chest Pain Stated Complaint: heart burn Time Seen by Provider: 02/13/24 10:10 History of Present Illness: 58-year-old female with a history of coronary artery disease status post 4 stents who presents emergency room with epigastric discomfort. This has been present for 4 months. Nothing really changed today other than her son told her she should go get it checked out. She says it does feel similar to when she had stents before. No nausea or vomiting. No cough. No altered mental status. No abdominal pain. Related Data Home Medications Medication Instructions Recorded Confirmed citalopram 10 mg tablet 10 mg PO BEDTIME 10/05/19 07/22/23 simvastatin 40 mg tablet 40 mg PO BEDTIME 10/05/19 07/22/23 amitriptyline 150 mg tablet 150 mg PO BEDTIME 12/20/20 07/22/23 insulin detemir U-100 100 unit/mL See Rx Instructions .Route 12/20/20 07/22/23 (3 mL) subcutaneous pen (Levemir .COMPLEX see pharmacy comments FlexTouch U-100 Insulin) metformin 1,000 mg tablet 1,000 mg PO BID 12/20/20 07/22/23 dulaglutide 1.5 mg/0.5 mL 1.5 mg SUBCUT Q7D 03/08/22 07/22/23 subcutaneous pen injector (Trulicity) levothyroxine 88 mcg tablet 88 mcg PO DAILY 03/08/22 07/22/23 montelukast 10 mg tablet 10 mg PO DAILY 03/08/22 07/22/23 Previous Rx's Medication Instructions Recorded clopidogrel 75 mg tablet (Plavix) 75 mg PO DAILY #90 tabs 08/26/19 lancets 33 gauge (OneTouch Delica #100 ea 11/08/19 Lancets) aspirin 81 mg tablet,delayed 81 mg PO DAILY #90 tabs 04/24/22 release miscellaneous medical supply #1 ea 05/07/22 (Blood Pressure Cuff) metoprolol succinate 25 mg 25 mg PO QAM #90 tabs 06/18/23 tablet,extended release 24 hr famotidine 40 mg tablet 40 mg PO DAILY 30 days #30 tabs 02/13/24 Allergies Allergy/AdvReac Type Severity Reaction Status Date / Time No Known Allergies Allergy Verified 07/22/23 14:22 Review of Systems Narrative: Constitutional symptoms: Negative except as documented in HPI. Skin symptoms: Negative except as documented in HPI. Eye symptoms: Negative except as documented in HPI. ENMT symptoms: Negative except as documented in HPI. Respiratory symptoms: Negative except as documented in HPI. Cardiovascular symptoms: Negative except as documented in HPI. Gastrointestinal symptoms: Negative except as documented in HPI. Genitourinary symptoms: Negative except as documented in HPI. Musculoskeletal symptoms: Negative except as documented in HPI. Neurologic symptoms: Negative except as documented in HPI. Psychiatric symptoms: Negative except as documented in HPI. Endocrine symptoms: Negative except as documented in HPI. PFSH ED PFSH: Medical History Uterine fibroid Depression Hypertension Anemia Improved after transfusion 2 units. Hemoglobin 8.0 on discharge. Pain, joint, knee, right Otalgia of both ears Disorder of left eustachian tube Deviated septum Anxiety and depression Arthritis Hyperlipidemia Coronary artery disease Had stent 03/2019 Right ovarian cyst Bacterial vaginosis Right lower quadrant abdominal pain Hypothyroid Diabetes Surgical History H/O colonoscopy (05/15/20) History of nasal cauterization History of tubal ligation Hx of heart artery stent (~03/2019) History of total left knee replacement History of total right knee replacement (~11/2017) Family History Mother Diabetes Brother Diabetes Heart disease Hypercholesteremia Father Heart disease Sister Uterine cancer Social History Smoking and tobacco/nicotine status: former use of tobacco/nicotine Quit status (tobacco/nicotine): has quit using Year quit tobacco: age 14 Alcohol intake: never Substance/Drug Use: never Marital status: Physical Exam Narrative: EXAM NARRATIVE: General: Alert, no acute distress. Skin: Warm, dry. Head: Normocephalic, atraumatic. Neck: Supple, trachea midline. Eye: Extraocular movements are intact. Ears, nose, mouth and throat: mucosa moist. Cardiovascular: Regular, Normal peripheral perfusion. Respiratory: Lungs are clear to auscultation, respirations are non-labored, breath sounds are equal, Symmetrical chest wall expansion. Gastrointestinal: Soft, Nontender, Non distended Musculoskeletal: Normal ROM, no deformity. Neurological: Alert and oriented, No focal neurological deficit observed. Psychiatric: Cooperative, appropriate mood & affect. Course Vital Signs: Vital signs: Vital Signs Temperature 98.2 F 02/13/24 10:00 Pulse Rate 101 H 02/13/24 10:00 Respiratory Rate 16 02/13/24 10:00 Blood Pressure 128/86 02/13/24 10:00 Pulse Oximetry 95 02/13/24 10:00 Oxygen Delivery Me thod Room Air 02/13/24 10:00 MDM - Chest Pain Medical Decision Making Differential diagnosis for patient with chest pain includes but is not limited to and based on the above HPI, review of systems and physical exam: Pneumonia. unstable angina. angina. Acute coronary syndrome / NV. Pulmonary embolism. Costochondritis / musculoskeletal. Pleurisy. Pericarditis. Esophageal spasm. Pancreatis. Cholecystitis. Orders placed to evaluate differential diagnosis based on the above differential, HPI and physical exam EKG: Time 1056. Rate 89. Normal sinus rhythm, No ST-T changes, no ectopy, normal NV & QRS intervals, This was reviewed and interpreted by myself the ER physician at 11 AM Lab Review: Laboratory results were reviewed and interpreted by myself the emergency room physician. Lab work is unremarkable. No leukocytosis. No anemia. No renal failure. Glucose is slightly elevated at 208. Cardiac marker is negative. I reviewed the patient's medical record. Reexamination: Patient remained stable. No increased work of breathing. No altered mental status. No focal motor deficits. Assessment and plan: Noncardiac chest pain ?Possible reflux. Placing on famotidine. Follow-up with primary. - Discharged home - Discussed plan with patient. Answered any questions. - Evaluation and treatment of this problem were appropriate in the emergency setting. Lab Data 02/13/24 10:32 02/13/24 10:32 Laboratory Results WBC 7.09 10^3/uL (3.29-11.43) 02/13/24 10:32 RBC 4.73 10^6/uL (3.85-5.65) 02/13/24 10:32 Hgb 12.40 g/dL (11.27-16.99) 02/13/24 10:32 Hct 39.7 % (36-47) 02/13/24 10:32 MCV 83.9 fl (85-98) L 02/13/24 10:32 MCH 26.2 pg (27-33) L 02/13/24 10:32 MCHC 31.2 g/dL (30-55) 02/13/24 10:32 RDW 14.4 % (12.1-15.1) 02/13/24 10:32 Plt Count 239 10^3/cmm (157-399) 02/13/24 10:32 MPV 9.0 fL (7.4-10.4) 02/13/24 10:32 Neut % (Auto) 64.4 % 02/13/24 10:32 Lymph % (Auto) 24.0 % 02/13/24 10:32 [place] % (Auto) 6.2 % 02/13/24 10:32 Eos % (Auto) 3.9 % 02/13/24 10:32 Baso % (Auto) 1.1 % 02/13/24 10:32 Neut # (Auto) 4.56 10^3/uL (1.8-7.7) 02/13/24 10:32 Lymph # (Auto) 1.7 10^3/uL (0.8-4.8) 02/13/24 10:32 [place] # (Auto) 0.4 10^3/uL (0.2-0.9) 02/13/24 10:32 Eos # (Auto) 0.3 10^3/uL (0.0-0.8) 02/13/24 10:32 Baso # (Auto) 0.1 10^3/uL (0.0-0.1) 02/13/24 10:32 Nucleated RBC % (auto) 0 % 02/13/24 10:32 Nucleated RBCs # 0.0 /100WBC 02/13/24 10:32 Sodium 135 mmol/L (136-145) L 02/13/24 10:32 Potassium 4.5 mmol/L (3.5-5.1) 02/13/24 10:32 Chloride 97 mmol/L (98-107) L 02/13/24 10:32 Carbon Dioxide 24 mmol/L (22-29) 02/13/24 10:32 Anion Gap 18.5 (5-19) 02/13/24 10:32 BUN 12 mg/dL (8-23) 02/13/24 10:32 Creatinine 0.8 mg/dL (0.5-0.9) 02/13/24 10:32 GFR Calculation 73.2 mL/min (90-130) L 02/13/24 10:32 Glucose 208 mg/dL (65-115) H 02/13/24 10:32 Calculated Osmolality 286 mOsm/kg (285-295) 02/13/24 10:32 Calcium 9.0 mg/dL (8.5-10.5) 02/13/24 10:32 Total Bilirubin 0.4 mg/dL (0.15-1.2) 02/13/24 10:32 AST 28 U/L (0-32) 02/13/24 10:32 ALT 28 U/L (0-33) 02/13/24 10:32 Alkaline Phosphatase 148 U/L (35-105) H 02/13/24 10:32 Troponin T Baseline < 6 ng/L (0-10) 02/13/24 10:32 Total Protein 7.4 g/dL (6.6-8.7) 02/13/24 10:32 Albumin 4.5 g/dL (3.5-5.2) 02/13/24 10:32 Globulin 2.9 g/dL (1.3-4.6) 02/13/24 10:32 Lipase 21 U/L (13-60) 02/13/24 10:32 No radiology studies performed this visit Discharge Plan Discharge Patient Disposition: Home Clinical Impression: Epigastric discomfort Condition: Stable Prescriptions: New famotidine 40 mg tablet 40 mg PO DAILY 30 Days Qty: 30 0RF No Action clopidogrel [Plavix] 75 mg tablet 75 mg PO DAILY Qty: 90 1RF (DME) Blood Pressure Cuff Misc See Rx Instructions .Route Qty: 1 0RF Rx Instructions: As directed (DME) lancets [OneTouch Delica Lancets] 33 gauge misc See Rx Instructions .ROUTE .MEDSUPPLY Qty: 100 0RF Rx Instructions: test once daily metoprolol succinate 25 mg tablet extended release 24 hr 25 mg PO QAM Qty: 90 3RF citalopram 10 mg tablet 10 mg PO BEDTIME simvastatin 40 mg tablet 40 mg PO BEDTIME amitriptyline 150 mg tablet 150 mg PO BEDTIME metformin 1,000 mg tablet 1,000 mg PO BID Hold Instructions: Resume on 04/25/22. Levemir FlexTouch U100 Insulin 100 unit/mL (3 mL) insulin pen See Rx Instructions .ROUTE .COMPLEX Rx Instructions: 40 unit subcutaneously qam and 55 units hs aspirin 81 mg Tablet,Delayed Release (Dr/Ec) 81 mg PO DAILY Qty: 90 2RF levothyroxine 88 mcg tablet 88 mcg PO DAILY montelukast 10 mg Tablet 10 mg PO DAILY Trulicity 1.5 mg/0.5 mL pen injector 1.5 mg SUBCUT Q7D Rx Instructions: On Sundays Discharge Orders: Discharge ED (Routine); Ordered 02/13/24 Ordered By: Myra Wilkinson Referrals: Chantelle Mcgee [Primary Care Provider] - Discharge Diet: Usual diet Discharge Activity: Resume usual activity Patient Instructions: Noncardiac Chest Pain (ED) Activity Restrictions/Additional Instructions: Thank you for choosing [facility] for your healthcare needs today. Please realize this is an emergency room and that we are providing you with a medical screening exam and this may not be complete and all inclusive of all the testing and or work up that you may need to determine your ailment or severity of your illness. You have been screened and evaluated and felt safe for discharge. Health conditions do change or evolve sometimes and as such it is important that you follow up with your Primary Doctor to be re checked, 3-5 days is a general good time frame for follow up. You are always welcome to return to the ED for re assessment if your symptoms are worsening or you have new concerns Coding Level of Care Code ED General Partner for Benigno Raymond
[2024-02-13 10:39] LABS: Basophils # 0.1 10^3/uL (0.0-0.1); Basophils % 1.1 %; Eosinophils # 0.3 10^3/uL (0.0-0.8); Eosinophils % 3.9 %; Hematocrit 39.7 % (36-47); Lymphocytes # 1.7 10^3/uL (0.8-4.8); Mean Corpuscular HGB Conc 31.2 g/dL (30-55); Mean Corpuscular Hemoglobin 26.2 pg (27-33); Mean Corpuscular Volume 83.9 fl (85-98); Monocytes # 0.4 10^3/uL (0.2-0.9); Monocytes % 6.2 %; Neutrophils # 4.56 10^3/uL (1.8-7.7); Neutrophils % 64.4 %; Nucleated Red Blood Cells % 0 %; Platelet Count 239 10^3/cmm (157-399); Red Blood Count 4.73 10^6/uL (3.85-5.65); Red Cell Distribution Width 14.4 % (12.1-15.1); White Blood Count 7.09 10^3/uL (3.29-11.43)
[2024-02-13 10:56] LABS: Alanine Aminotransferase 28 U/L (0-33); Albumin Level 4.5 g/dL (3.5-5.2); Alkaline Phosphatase 148 U/L (35-105); Anion Gap 18.5 (5-19); Aspartate Amino Transferase 28 U/L (0-32); Blood Urea Nitrogen 12 mg/dL (8-23); Carbon Dioxide 24 mmol/L (22-29); Chloride 97 mmol/L (98-107); Creatinine Clr Calc Pharmacy 79.6119; Globulin 2.9 g/dL (1.3-4.6); Glomerular Filtration Rate 73.2 mL/min (90-130); Glucose 208 mg/dL (65-115); Lipase 21 U/L (13-60); Osmolality Calculated 286 mOsm/kg (285-295); Potassium 4.5 mmol/L (3.5-5.1); Sodium 135 mmol/L (136-145); Total Bilirubin 0.4 mg/dL (0.15-1.2); Total Protein 7.4 g/dL (6.6-8.7); Troponin(5th) Baseline < 6 ng/L (0-10)
--- NOTE | 2024-02-13 10:56 | ECG_ITS ---
[facility] Test Date: 2024-02-13 Pat Name: Tonie Fish Department: Room: Gender: Female [employer] Laminator: : 1965 Requested By: Myra Melendez Order Number: [id number] Dannie MD: RACHEL SUAREZ Measurements Intervals [place] Rate: 89 P: 21 IL: 168 QRS: -6 QRSD: 85 T: 71 QT: 347 QTc: 424 Interpretive Statements SINUS RHYTHM VOLTAGE CRITERIA FOR LVH [MEETS CRITERIA IN ONE OF: R(aVL), S(V1), R(V5), R(V5/V6)+S(V1)] POSSIBLE ANTERIOR MYOCARDIAL INFARCTION , PROBABLY OLD [30 ms Q WAVE IN V3/V4, OR R < 0.2 mV IN V4] Compared to ECG 03/08/2022 13:34:08 Myocardial infarct finding now present Sinus arrhythmia no longer present T-wave abnormality no longer present Electronically Signed On 02-13-2024 18:08:14 CDT by RACHEL SUAREZ [email or web address]
[2024-02-13 11:32] VITALS: BP 118/79; PULSE 94; O2SAT 95
[2024-02-13 11:53] VITALS: BP 119/79; PULSE 91; O2SAT 98
== END 2024-02-13 11:55 | disposition home or self-care (01) ==
PROVIDERS: Emergency Medicine; Emergency Provider Emergency Medicine; PCP Registered Nurse
DX: R10.13 Epigastric pain (principal); Z79.02 Long term (current) use of antithrombotics/antiplatelets; Z79.82 Long term (current) use of aspirin; Z79.85 Long-term (current) use of injectable non-insulin antidiabetic drugs; Z79.84 Long term (current) use of oral hypoglycemic drugs; Z79.4 Long term (current) use of insulin; Z87.891 Personal history of nicotine dependence; I10 Essential (primary) hypertension; E78.5 Hyperlipidemia, unspecified; I25.10 Atherosclerotic heart disease of native coronary artery without angina pectoris; E11.9 Type 2 diabetes mellitus without complications
CPT/HCPCS: 36415; 80053; 83690; 84484; 85025; 93005; 99284

== ENCOUNTER 2024-03-22 08:26 | Oncology outpatient (recurring) (ONCR) | payer MEDICAID, SELFPAY | END 2024-03-26 23:59 | disposition home or self-care (01) | LOC: ONCMED 08:27 | PROVIDERS: PCP Registered Nurse; Visit Provider Internal Medicine Medical Oncology | DX: D47.2 Monoclonal gammopathy (principal); I10 Essential (primary) hypertension | CPT/HCPCS: 99205 ==

== ENCOUNTER → 2024-09-05 12:57 | Outpatient (BNVA) | payer MEDICAID, SELFPAY | PROVIDERS: PCP Registered Nurse; Visit Provider Internal Medicine | DX: I25.10 Atherosclerotic heart disease of native coronary artery without angina pectoris (principal); I10 Essential (primary) hypertension; R06.09 Other forms of dyspnea; Z87.891 Personal history of nicotine dependence | CPT/HCPCS: 99214 ==

== ENCOUNTER 2024-09-28 07:58 | Outpatient (CLI) | payer MEDICAID, SELFPAY ==
[2024-09-28 08:09] VITALS: BMI 39.3
--- NOTE | 2024-09-28 08:12 | ECG_ITS ---
[facility] Test Date: 2024-09-28 Pat Name: Tonie Fish Department: Room: Gender: Female [employer] Breaker: : 1965 Requested By: Chriss Arvizu Order Number: [id number] Dannie MD: Chriss Arvizu M.D. Interpretive Statements LEXISCAN Procedure: At the baseline, the blood pressure was 118/96 mmHg with a heart rate of 78 bpm. The electrocardiogram showed normal sinus rhythm, normal axis with normal ST and T's. The Lexiscan was infused over a period of 20 seconds. A total of 0.4 mg of Lexiscan was infused. The stress phase was continued for a total of 5 minutes. Heart rate was at the end of stress phase was 105 bpm and a blood pressure of 163/86 mmHg. The EKG at the peak infusion revealed normal sinus rhythm with no significant ST-T wave changes. Sestamibi was injected 20 seconds after the Lexiscan infusion. Blood pressure at the end of recovery phase was 116/74 mmHg with a heart rate of 107 bpm. Conclusion: 1. Normal EKG response to Lexiscan infusion 2. No Lexiscan induced chest pain or cardiac arrhythmia. 3. Normal blood pressure and heart rate response. 4. Sestamibi/sestamibi perfusion scan pending; see separate report. Electronically Signed On 10-13-2024 10:26:01 CDT by Chriss Arvizu M.D. [id number] [id number]
--- NOTE | 2024-09-28 08:12 | NMCV_ITS ---
NM ness perf SPECT r/s* [id number] Tonie Fish Age: 59 Gender: F : 1965 Exam Date: 09/28/2024 09:11 Ordering Phys: Chriss Arvizu M.D ([email or web address]) Technologist: MONTY Montoya Exam Location: [facility] Indications: cp STRESS TEST [facility] IMAGE PROTOCOL Rest/Stress 1 Lexiscan Day Radiopharmaceutical Dose (mCi) Administration Site Administered by Rest: Tc-99m 10.6 IV MONTY Montoya Sestamibi Stress:Tc-99m 32.9 IV Iraida Crane TRANSVERSE ABDOMINAL MUSCLE NURSE Sestamibi Rest: 28-Sep-2024 60 Discovery 630 Stress: 28-Sep-2024 30 Discovery 630 0.4mg Lexiscan. Images obtained in supine and prone position. SPECT RESULTS Technical Quality: Good Raw Data Analysis: Normal Image Corrections: No attenuation or motion correction applied Summed Stress Score: 9 Summed Rest Score: 8 Summed Difference Score: 3 PERFUSION FINDINGS There is small area of fixed perfusion defect seen in the apical and apical anterior wall. Medium sized area of mostly fixed perfusion defect seen in the lateral and inferolateral quigley. This is consistent with small area of prior infarct in the LAD territory and medium sized area of prior infarct with minimal lou-infarct ischemia in left circumflex artery territory FUNCTIONAL RESULTS (calculated via Gated SPECT) Stress Image LV EF (%): 64 Stress EDV (mL):88 TID: 1.2 Stress ESV (mL):32 FUNCTIONAL FINDINGS: There is normal left ventricular systolic function. IMPRESSIONS 1. Abnormal myocardial perfusion imaging with small area of prior infarct in the LAD territory and medium sized area of prior infarct with minimal lou- infarct ischemia in left circumflex artery territory 2. LV systolic function is normal Chriss Arvizu MD (Electronically Signed) Final Date: 03 October 2024 12:10 S
[2024-09-28] MEDS: regadenoson 0.4 Mg/5 ml Syringe IVP (10:00)
[2024-09-28 10:19] VITALS: BP 146/84; PULSE 105
== END 2024-09-28 07:59 | disposition home or self-care (01) ==
LOC: CDL 08:01
PROVIDERS: PCP Registered Nurse; Visit Provider Internal Medicine
DX: R07.9 Chest pain, unspecified (principal); R06.02 Shortness of breath; R93.1 Abnormal findings on diagnostic imaging of heart and coronary circulation
CPT/HCPCS: 36415; 78452; 93017; 96374; A9500; J2785

== ENCOUNTER → 2025-03-06 13:19 | Outpatient (BNVA) | payer MEDICAID, SELFPAY | PROVIDERS: PCP Registered Nurse; Visit Provider Internal Medicine | DX: I25.10 Atherosclerotic heart disease of native coronary artery without angina pectoris (principal); I10 Essential (primary) hypertension; E11.9 Type 2 diabetes mellitus without complications; Z87.891 Personal history of nicotine dependence; Z79.84 Long term (current) use of oral hypoglycemic drugs | CPT/HCPCS: 99214 ==